=== PATIENT | female | born 1955 | race Caucasian/White ===

== ENCOUNTER 2019-02-25 15:52 | Outpatient (CLI) | payer MEDICARE | END 2019-02-25 15:53 | disposition critical access hospital (66) | LOC: EMS 15:52 | PROVIDERS: ATTEND Surgery | DX: R07.9 Chest pain, unspecified (principal) | CPT/HCPCS: A0425; A0427 ==

== ENCOUNTER 2019-02-25 16:12 | Observation (INO) | payer MEDICARE ==
[2019-02-25 16:39] LABS: BASOPHILS % (AUTO) 0.4 %; EOSINOPHILS # (AUTO) 0.2 10^3/uL (0.0-0.7); EOSINOPHILS % (AUTO) 1.9 %; HGB - HEMOGLOBIN 12.6 g/dL (12.0-16.0); LYMPHOCYTES # (AUTO) 2.4 10^3/uL (1.5-3.5); LYMPHOCYTES % (AUTO) 25.3 %; MEAN CORPUSCULAR HGB CONC 33.3 g/dL (32.0-36.0); MEAN CORPUSCULAR VOLUME 93.1 fL (81.0-99.0); MONOCYTES # (AUTO) 0.7 10^3/uL (0.0-1.0); MONOCYTES % (AUTO) 7.3 %; NEUTROPHILS % (AUTO) 64.7 %; PLT - PLATELET COUNT 261 10^3/uL (130-450); RED BLOOD COUNT 4.06 10^6/uL (4.20-5.40); RED CELL DISTRIBUTION WIDTH 13.2 % (12.0-15.0); WHITE BLOOD COUNT 9.3 x10^3/uL (4.8-10.8)
[2019-02-25 16:49] LABS: ALBUMIN/GLOBULIN RATIO 1.4 (1.0-2.2); BILIRUBIN,TOTAL 0.3 mg/dL (0.2-1.0); CALCIUM 9.5 mg/dL (8.5-10.3); CREATININE 0.7 mg/dL (0.4-1.0); TOTAL PROTEIN 6.8 g/dL (6.7-8.2)
--- NOTE | 2019-02-25 17:11 | ED Physician Documentation ---
PD HPI CHEST PAIN - Stated complaint Stated Complaint: CP - Chief complaint Chief Complaint: Cardiac - History obtained from History obtained from: Patient, EMS - History of Present Illness Timing - onset: How many hours ago (1.5) Timing - onset during: Rest Timing - duration: Hours (1.5) Timing - details: Abrupt onset Pain level max: 6 Pain level now: 0 Quality: Pressure, Sharp Location: Left chest Radiation: Left upper extremity (shoulder) Improved by: Nitro Worsened by: Inspiration, Palpation. No: Exertion, Eating, Movement, Position Associated symptoms: No: Shortness of air, Diaphoresis, Nausea, Vomiting, Feeling faint / dizzy, General Weakness, Palpitations, Cough Recently seen: Not recently seen - Additional information Additional information: Patient moved here 10 days ago from [place]. Does not have any medical care set up here yet. She states that she does not have a history of acute coronary syndrome. States that she had a normal cardiac stress test she believes in November, but says that it was on a treadmill and they "stopped it early". She does not know the results beyond that Review of Systems Constitutional: denies: Fever, Chills Respiratory: denies: Cough GI: denies: Vomiting, Diarrhea Skin: denies: Rash Musculoskeletal: denies: Neck pain, Back pain Neurologic: denies: Focal weakness, Numbness, Headache PD PAST MEDICAL HISTORY - Past Medical History Past Medical History: Yes Cardiovascular: Congestive heart failure, Other Respiratory: COPD Endocrine/Autoimmune: Type 2 diabetes Other Past Medical History: aortic stenosis - Past Surgical History Past Surgical History: Yes General: 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 /CADDIE: 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 HEENT: Tonsil/Adenoidectomy - Present Medications Home Medications: Ambulatory Orders Medication Instructions Recorded Confirmed Aspirin [Aspirin EC] 81 mg PO DAILY 02/25/19 02/25/19 Beclomethasone 40 Mcg [Qvar 40] 100 puffs INH Q6HR PRN 02/25/19 02/25/19 Bumetanide 1 mg PO BIDDIURETIC 02/25/19 02/25/19 Fluticasone Propionate 1 spray NS DAILY PRN 02/25/19 02/25/19 Gabapentin 300 mg PO TID 02/25/19 02/25/19 Ipratropium/Albuterol [Duoneb] 3 ml INH BID 02/25/19 02/25/19 Losartan Potassium 25 mg PO DAILY 02/25/19 02/25/19 Montelukast [Singulair] 10 mg PO QPM 02/25/19 02/25/19 Simvastatin 10 mg PO DAILY PM 02/25/19 02/25/19 metFORMIN [Glucophage] 500 mg PO DAILYWM 02/25/19 02/25/19 - Allergies Allergies/Adverse Reactions: Allergies Allergy/AdvReac Type Severity Reaction Status Date / Time No Known Drug Allergies Allergy Verified 02/25/19 16:19 - Social History Does the pt smoke?: No Smoking Status: Former smoker Does the pt drink ETOH?: Yes Does the pt have substance abuse?: No - Immunizations Immunizations are current?: Yes PD ED PE NORMAL - Vitals Vital signs reviewed: Yes - General General: Alert and oriented X 3, No acute distress - HEENT HEENT: Moist mucous membranes - Neck Neck: Supple, no meningeal sign - Cardiac Cardiac: RRR, Strong equal pulses - Respiratory Respiratory: No respiratory distress, Clear bilaterally - Abdomen Abdomen: Soft, Non tender, Non distended - Derm Derm: Warm and dry, No rash - Extremities Extremities: No edema, No calf tenderness / cord - Neuro Neuro: Alert and oriented X 3 Results - Vitals Vitals: Vital Signs - 24 hr 02/25/19 02/25/19 02/25/19 16:12 16:32 16:58 Temperature 36.6 C Heart Rate 77 66 70 Respiratory 18 14 16 Rate Blood Pressure 119/67 115/63 115/65 O2 Saturation 97 97 96 Oxygen O2 Source Room air - EKG (time done) 1616 Rate: Rate (enter#) (72) Rhythm: NSR [place]: Normal Intervals: Normal [place] QRS: Normal Ischemia: Normal ST segments - Labs Labs: Laboratory Tests 02/25/19 02/25/19 02/25/19 16:30 16:30 16:30 WBC 9.3 RBC 4.06 L Hgb 12.6 Hct 37.8 MCV 93.1 MCH 31.0 MCHC 33.3 RDW 13.2 Plt Count 261 MPV 10.0 Neut # (Auto) 6.0 Lymph # (Auto) 2.4 [place] # (Auto) 0.7 Eos # (Auto) 0.2 Baso # (Auto) 0.0 Absolute Nucleated RBC 0.00 Nucleated RBC % 0.0 D-Dimer Sodium 141 Potassium 3.2 L Chloride 106 Carbon Dioxide 25 Anion Gap 10.0 BUN 12 Creatinine 0.7 Estimated GFR (MDRD) 84 L Glucose 94 Calcium 9.5 Total Bilirubin 0.3 AST 26 ALT 36 Alkaline Phosphatase 50 Troponin I < 0.04 Total Protein 6.8 Albumin 4.0 Globulin 2.8 Albumin/Globulin Ratio 1.4 Lipase 29 02/25/19 16:30 WBC RBC Hgb Hct MCV MCH MCHC RDW Plt Count MPV Neut # (Auto) Lymph # (Auto) [place] # (Auto) Eos # (Auto) Baso # (Auto) Absolute Nucleated RBC Nucleated RBC % D-Dimer < 200.0 L Sodium Potassium Chloride Carbon Dioxide Anion Gap BUN Creatinine Estimated GFR (MDRD) Glucose Calcium Total Bilirubin AST ALT Alkaline Phosphatase Troponin I Total Protein Albumin Globulin Albumin/Globulin Ratio Lipase - Rads (name of study) cxr Radiology: Prelim report reviewed, EMP read contemporaneously, See rad report (Negative chest. ) PD MEDICAL DECISION MAKING - ED course Complexity details: reviewed results, re-evaluated patient, considered differential (No ST elevation [place], no aortic dissection, no PE, no tension pneumothorax, no aortic aneurysm), d/w patient, d/w compensation consultant ED course: 63-year-old female with chest pain. Does have a cardiac history, unclear if she has acute coronary syndrome history or not. Negative initial troponin. No acute findings on initial EKG. Discussed the case with Dr. Pierre, hospitalist who accepts for observation and rule out. Patient took aspirin prior to arrival. This document was made in part using voice recognition software. While efforts are made to proofread this document, sound alike and grammatical errors may occur. Departure - Departure Disposition: ED Place in Observation Clinical Impression: Chest pain Qualifiers: Chest pain type: unspecified Qualified Code(s): R07.9 - Chest pain, unspecified Condition: Stable Discharge Date/Time: 02/25/19 18:38
--- NOTE | 2019-02-25 17:14 | XRAY Report ---
Reason: CP, hx of COPD Procedure Date: 02/25/2019 Accession Number: [id number] / [id number] Procedure: XR - Chest 2 View X-Ray CPT Code: 07282 FULL RESULT: EXAM: CHEST RADIOGRAPHY EXAM DATE: 02/25/2019 04:59 PM. CLINICAL HISTORY: CP, hx of COPD. COMPARISON: None. TECHNIQUE: 2 views. FINDINGS: Lungs/Pleura: No focal opacities evident. No pleural effusion. No pneumothorax. Normal volumes. Mediastinum: Heart and mediastinal contours are unremarkable. Other: None. IMPRESSION: Negative chest. RADIA
[2019-02-25] MEDS ORDERED: SODIUM CHLORIDE FLUSH 0.9% 10 ML SYRINGE IVP PRN (18:07)
--- NOTE | 2019-02-25 18:16 | HISTORY & PHYSICAL EXAMINATION ---
Chief Complaint - Chief Complaint Chief Complaint: chest pain Chest Pain Admission HPI - Admitted From Admitted from: ED - History Obtained From Records Reviewed: RN notes reviewed, Old records reviewed History obtained from: Patient, Family Exam limitations: No limitations - History of Present Illness Severity at the worst: reports: Moderate Pain Quality: reports: Sharp, Dull, Aching Context-Pain started w/: reports: Exertion, Movement, Position Timing: reports: Abrupt onset, Constant Worsened by: reports: Exertion, Movement Associated symptoms: reports: Shortness of air, Diaphoresis, Nausea, Feeling faint / dizzy, General Weakness HPI Comment/Other: Shivani Tovar is a 63-year old female with a past medical history of hypertension, hyperlipidemia, aortic stenosis, CAD, diabetes mellitus type 2, COPD, tobacco dependence, in remission, alcoholism in remission, chronic angina, and medical noncompliance. Susanna just moved [place] [facility] [place], [place], and claims that she used every last dollar to her name to move. Her sister, Megan has been paying for a hotel room near [place] since early February. Susanna states that her pain started abruptly about 2 hours prior to calling EMS. She states that the pain is in her left-mid sternum and radiates up to her shoulder and is associated with diaphoresis, nausea, anxiety, shortness of breath and dizziness. The only thing that gave her relief was after getting a nitroglycerin tab in the ambulance, which has completely resolved the pain. She denies radiating pain to her jaw, arm, back, any other area of her chest, abdominal pain, vomiting, loss of bowel function, weakness, numbness or tingling, or confusion. On exam, she has tenderness to her left sub-sternal boarder that went away, and otherwise her pain was resolved. Vital signs were not significant showing a blood pressure of 119/67, heart rate of 77, temp 36.6 C, respirations 18 and on room air at 97%. Labs showed no WBC count, normal CBC, potassium of 3.2, GFR 84, negative troponin of 0.04, and no other abnormalities. EKG showed no ST elevation, sinus rhythm. She will be admitted to observation for further testing, medical management, a possible stress test depending on echo results, and serial troponins. 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 : positive: Incontinence HEENT: positive: Chronic vision loss, Chronic sinusitis Psych: positive: Depression, Anxiety, Bipolar disorder Musculoskeletal: positive: Osteoarthritis Derm: positive: None MRSA Hx?: No Other Past Medical History: aortic stenosis - Past Surgical History General: positive: 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: 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 HEENT: positive: Tonsil/Adenoidectomy Social & Family Hx - Living Situation Living Arrangement: Other (staying in a hotel) Living Situation: Alone - Social History Does the pt smoke?: No Smoking Status: Former smoker Does the pt drink ETOH?: Yes ETOH Use: Beer Does the pt have substance abuse?: No - POLST Patient has POLST: No POLST Status: Full Code - Family History Family History: Mother: , Father: Family History Comment/Other: Mother had a brain anerysm Father CAD Sister- TIA, CAD Meds/Allgy - Home Medications Home Medications: Ambulatory Orders Medication Instructions Recorded Confirmed Aspirin [Aspirin EC] 81 mg PO DAILY 02/25/19 02/26/19 Beclomethasone 40 Mcg [Qvar 40] 1 puffs INH BID 02/25/19 02/26/19 Fluticasone Propionate 1 spray NS DAILY PRN 02/25/19 02/26/19 Gabapentin 300 mg PO TID 02/25/19 02/26/19 Ipratropium/Albuterol [Duoneb] 3 ml INH BID 02/25/19 02/26/19 Montelukast [Singulair] 10 mg PO QPM 02/25/19 02/26/19 metFORMIN [Glucophage] 500 mg PO BID 02/25/19 02/26/19 Albuterol Sulf [Ventolin Hfa 2 puffs PO Q4H PRN 02/26/19 02/26/19 Inhaler] Bumetanide 1 mg PO DAILY #30 02/26/19 02/26/19 Isosorbide Mononitrate ER [Imdur] 30 mg PO DAILY #30 tablet 02/26/19 Nitroglycerin [Nitrostat] 0.4 mg SL Q15M PRN #30 tablet 02/26/19 Simvastatin 10 mg PO DAILY #30 tablet 02/26/19 - Allergies Allergies/Adverse Reactions: Allergies Allergy/AdvReac Type Severity Reaction Status Date / Time No Known Drug Allergies Allergy Verified 02/25/19 16:19 Review of Systems - Constitutional Constitutional: reports: Diaphoresis - Eyes Eyes: reports: Vision loss - Ears, Nose & Throat Ears, Nose & Throat: reports: Postnasal drainage, Dental decay - Cardiovascular Cariovascular: reports: Chest pain, Edema, Lightheadedness, Decr. exercise tolerance - Respiratory Respiratory: reports: Cough, SOB with exertion - Gastrointestinal Gastrointestinal: reports: Abdominal distention, Nausea, Reflux/heartburn, Poor appetite - Genitourinary Genitourinary: reports: Dysuria, Incontinence, Nocturia - Musculoskeletal Musculoskeletal: reports: Joint pain - Integumentary Integumentary: reports: Dryness, Other (tanned/bronze skin tone) - Neurological Neurological: reports: General weakness, Dizziness, Pre-existing deficit - Psychiatric Psychiatric: reports: Depression, Anxiety - All Other Systems All Other Systems: reports: Reviewed and negative 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, 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 Exam - Vital Signs Reviewed Vital Signs: Yes Vital Signs: Vital Signs x48h Temp Pulse Resp BP Pulse Ox 02/25/19 16:58 70 16 115/65 96 02/25/19 16:32 66 14 115/63 97 02/25/19 16:12 36.6 C 77 18 119/67 97 - Physical Exam General Appearance: positive: Alert, Moderate distress, Anxious Eyes Bilateral: positive: PERRL ENT: positive: Pharynx nml, No signs of dehydration Neck: positive: Thyroid nml, No JVD Respiratory: positive: Chest non-tender, No respiratory distress, Breath sounds nml Cardiovascular: positive: Regular rate & rhythm, No gallop, Systolic murmur, Decreased pulse(s) Peripheral Pulses: positive: 1+ Abdomen: positive: Non-tender, Nml bowel sounds Back: positive: Nml inspection Skin: positive: No rash, Warm, Dry Extremities: positive: Non-tender, Full ROM, Nml appearance, Pedal edema (trace, BLEs) Neurologic/Psychiatric: positive: Oriented x3, CN's nml (2-12), Motor nml, Sensation nml, Weakness, Depressed mood/affect Reflexes: Bicep (R): 3+, Bicep (L): 3+ Results - Lab Results Lab results reviewed: Yes Fish Bones: 02/26/19 05:18 02/26/19 05:18 Other Lab Results: Lab Results x24hrs 02/25/19 02/25/19 02/25/19 Range/Units 16:30 16:30 16:30 WBC (4.8-10.8) x10^3/uL RBC (4.20-5.40) 10^6/uL Hgb (12.0-16.0) g/dL Hct (37.0-47.0) % MCV (81.0-99.0) fL MCH (27.0-31.0) pg MCHC (32.0-36.0) g/dL RDW (12.0-15.0) % Plt Count (130-450) 10^3/uL MPV (7.9-10.8) fL Neut # (Auto) (1.5-6.6) 10^3/uL Lymph # (Auto) (1.5-3.5) 10^3/uL [place] # (Auto) (0.0-1.0) 10^3/uL Eos # (Auto) (0.0-0.7) 10^3/uL Baso # (Auto) (0.0-0.1) 10^3/uL Absolute Nucleated RBC x10^3/uL Nucleated RBC % /100WBC D-Dimer < 200.0 L (200.0-255.0) ng/mL Sodium 141 (135-145) mmol/L Potassium 3.2 L (3.5-5.0) mmol/L Chloride 106 (101-111) mmol/L Carbon Dioxide 25 (21-32) mmol/L Anion Gap 10.0 (6-13) BUN 12 (6-20) mg/dL Creatinine 0.7 (0.4-1.0) mg/dL Estimated GFR (MDRD) 84 L (>89) Glucose 94 (70-100) mg/dL Calcium 9.5 (8.5-10.3) mg/dL Total Bilirubin 0.3 (0.2-1.0) mg/dL AST 26 (10-42) IU/L ALT 36 (10-60) IU/L Alkaline Phosphatase 50 (42-121) IU/L Troponin I < 0.04 (<0.49) ng/mL Total Protein 6.8 (6.7-8.2) g/dL Albumin 4.0 (3.2-5.5) g/dL Globulin 2.8 (2.1-4.2) g/dL Albumin/Globulin Ratio 1.4 (1.0-2.2) Lipase 29 (22-51) U/L // Range/Units 16:30 WBC 9.3 (4.8-10.8) x10^3/uL RBC 4.06 L (4.20-5.40) 10^6/uL Hgb 12.6 (12.0-16.0) g/dL Hct 37.8 (37.0-47.0) % MCV 93.1 (81.0-99.0) fL MCH 31.0 (27.0-31.0) pg MCHC 33.3 (32.0-36.0) g/dL RDW 13.2 (12.0-15.0) % Plt Count 261 (130-450) 10^3/uL MPV 10.0 (7.9-10.8) fL Neut # (Auto) 6.0 (1.5-6.6) 10^3/uL Lymph # (Auto) 2.4 (1.5-3.5) 10^3/uL [place] # (Auto) 0.7 (0.0-1.0) 10^3/uL Eos # (Auto) 0.2 (0.0-0.7) 10^3/uL Baso # (Auto) 0.0 (0.0-0.1) 10^3/uL Absolute Nucleated RBC 0.00 x10^3/uL Nucleated RBC % 0.0 /100WBC D-Dimer (200.0-255.0) ng/mL Sodium (135-145) mmol/L Potassium (3.5-5.0) mmol/L Chloride (101-111) mmol/L Carbon Dioxide (21-32) mmol/L Anion Gap (6-13) BUN (6-20) mg/dL Creatinine (0.4-1.0) mg/dL Estimated GFR (MDRD) (>89) Glucose (70-100) mg/dL Calcium (8.5-10.3) mg/dL Total Bilirubin (0.2-1.0) mg/dL AST (10-42) IU/L ALT (10-60) IU/L Alkaline Phosphatase (42-121) IU/L Troponin I (<0.49) ng/mL Total Protein (6.7-8.2) g/dL Albumin (3.2-5.5) g/dL Globulin (2.1-4.2) g/dL Albumin/Globulin Ratio (1.0-2.2) Lipase (22-51) U/L CP/CHF Plan - Echo Plan to order an echo?: Yes - Plan Patient Problems: All Active Problems Chest pain (Acute) Dizziness (Acute) Poor social situation (Acute) Alcoholism in remission (Chronic) Aortic stenosis (Chronic) CAD (coronary artery disease) (Chronic) COPD (chronic obstructive pulmonary disease) (Chronic) Diabetes mellitus type 2 in obese (Chronic) Essential hypertension (Chronic) Hyperlipidemia (Chronic) Medical non-compliance (Chronic) Peripheral neuropathy (Chronic) Tobacco use disorder, severe, in sustained remission, dependence (Chronic) Pulmonary nodules (Chronic) Plan: Admit to observation Serial troponins, routine labs, TSH Await Echo results to evaluate for aortic stenosis and the severity Contact social work for help with living situation, community resources Adjust medications Start Imdur to prevent chest pain Monitor on telemetry Frequent nursing care Hold Metformin, hold diuretic Carb controlled diet, SSI, blood sugar checks, Lantus nightly of 10 units Core Measures - Anticipated LOS I expect patient to be DC'd or transferred within 96 hours.: Yes - DVT/VTE - Prophylaxis VTE/DVT Device ordered at admit?: Yes VTE/DVT Prophylaxis med ordered at admit?: Yes - Stroke - Rehab Assessment Rehab services assessment to be ordered?: No Not Ordered - Medical Reason: Contraindicated - AMI - Statin at Admit Aspirin Prescribed on Admit: Yes
[2019-02-25] MEDS ORDERED: NITROGLYCERIN SL 0.4 MG TABLET SL PRN (18:27)
[2019-02-25 19:05] LABS: MUDS CUTOFF CONCENTRATIONS CUTOFF CONC BELOW:
[2019-02-25] MEDS ORDERED: METOPROLOL SUCCINATE 25 MG TABLET PO SCH (19:22)
[2019-02-25 19:30] LABS: AMPHETAMINE SCREEN,URINE NEGATIVE (NEGATIVE); BENZODIAZEPINES SCREEN, URINE NEGATIVE (NEGATIVE); COCAINE SCREEN URINE NEGATIVE (NEGATIVE); METHADONE SCREEN, URINE NEGATIVE (NEGATIVE); METHAMPHETAMINES SCREEN, URINE NEGATIVE (NEGATIVE); OPIATE SCREEN, URINE NEGATIVE (NEGATIVE); OXYCODONE SCREEN, URINE NEGATIVE (NEGATIVE); PROPOXYPHENE SCREEN, URINE NEGATIVE (NEGATIVE); TRICYCLIC ANTIDEPRESSANT,URINE NEGATIVE (NEGATIVE)
[2019-02-25] MEDS ORDERED: IPRATROPIUM/ALBUTEROL 3 ML NEB INH SCH (20:00)
[2019-02-25] MEDS: INSULIN ASPART 300 UNIT/3 ML PEN SUBQ SCH (20:11)
[2019-02-25] MEDS ORDERED: INSULIN GLARGINE 300 UNIT/3 ML PEN SUBQ SCH (21:00)
[2019-02-25] MEDS ORDERED: ATORVASTATIN 40 MG TABLET PO SCH (21:00)
[2019-02-25] MEDS ORDERED: MONTELUKAST 10 MG TABLET PO SCH (21:00)
[2019-02-25] MEDS: GABAPENTIN 300 MG CAPSULE PO SCH (21:16)
[2019-02-25] MEDS: ASPIRIN 325 MG TABLET PO SCH (21:16)
[2019-02-25] MEDS: ENOXAPARIN 100 MG/ML SYRINGE SUBQ SCH (21:16)
[2019-02-25] MEDS: IPRATROPIUM/ALBUTEROL 3 ML NEB INH SCH (22:32)
[2019-02-26] MEDS: SODIUM CHLORIDE FLUSH 0.9% 10 ML SYRINGE IVP SCH ×2 (00:09→08:21)
[2019-02-26] MEDS: ISOSORBIDE MONONITRATE ER 30 MG TABLET PO SCH ×2 (01:05→02:42)
[2019-02-26] MEDS ORDERED: IPRATROPIUM/ALBUTEROL 3 ML NEB INH PRN (04:19)
[2019-02-26 05:28] LABS: BASOPHILS % (AUTO) 0.5 %; EOSINOPHILS # (AUTO) 0.3 10^3/uL (0.0-0.7); EOSINOPHILS % (AUTO) 3.9 %; HGB - HEMOGLOBIN 12.2 g/dL (12.0-16.0); LYMPHOCYTES # (AUTO) 3.2 10^3/uL (1.5-3.5); MEAN CORPUSCULAR HEMOGLOBIN 30.2 pg (27.0-31.0); MEAN CORPUSCULAR VOLUME 94.3 fL (81.0-99.0); MEAN PLATELET VOLUME 10.2 fL (7.9-10.8); MONOCYTES # (AUTO) 0.5 10^3/uL (0.0-1.0); MONOCYTES % (AUTO) 6.3 %; NEUTROPHILS # (AUTO) 3.6 10^3/uL (1.5-6.6); PLT - PLATELET COUNT 238 10^3/uL (130-450); RED BLOOD COUNT 4.04 10^6/uL (4.20-5.40); RED CELL DISTRIBUTION WIDTH 13.4 % (12.0-15.0); WHITE BLOOD COUNT 7.6 x10^3/uL (4.8-10.8)
[2019-02-26 05:41] LABS: HB2 TOTAL 12.9 g/dL; HEMOGLOBIN A1C 0.54 g/dL
[2019-02-26 05:42] LABS: ALBUMIN 3.5 g/dL (3.2-5.5); ALBUMIN/GLOBULIN RATIO 1.3 (1.0-2.2); BILIRUBIN,TOTAL 0.4 mg/dL (0.2-1.0); CREATININE 0.7 mg/dL (0.4-1.0); MAGNESIUM 2.3 mg/dL (1.7-2.8); TOTAL PROTEIN 6.1 g/dL (6.7-8.2)
[2019-02-26 05:48] LABS: TROPONIN I < 0.04 ng/mL (<0.49)
[2019-02-26 05:50] LABS: CREATINE KINASE MB 3.9 ng/mL (0.6-6.3)
[2019-02-26] MEDS: GABAPENTIN 300 MG CAPSULE PO SCH (05:52)
[2019-02-26 08:03] VITALS: BP 102/59
[2019-02-26] MEDS: ASPIRIN 325 MG TABLET PO SCH (08:17)
[2019-02-26] MEDS: ENOXAPARIN 100 MG/ML SYRINGE SUBQ SCH (08:17)
[2019-02-26] MEDS: INSULIN ASPART 300 UNIT/3 ML PEN SUBQ SCH (08:20)
[2019-02-26] MEDS ORDERED: ISOSORBIDE MONONITRATE ER 30 MG TABLET PO SCH ×2 (09:00→10:00)
[2019-02-26] MEDS ORDERED: POLYETHYLENE GLYCOL 3350 17 GM PACKET PO SCH (09:00)
[2019-02-26] MEDS: IPRATROPIUM/ALBUTEROL 3 ML NEB INH SCH (09:40)
--- NOTE | 2019-02-26 09:53 | Discharge Plan ---
Discharge Plan Problem Reviewed?: Yes Disposition: Home, Self Care Condition: Good Prescriptions: Isosorbide Mononitrate ER [Imdur] 30 mg PO DAILY #30 tablet Nitroglycerin [Nitrostat] 0.4 mg SL Q15M PRN #30 tablet PRN Reason: Chest Pain Simvastatin 10 mg PO DAILY #30 tablet Diet: Cardiac Activity Restrictions: Activity as Tolerated Shower Restrictions: No Instruction Topics: Atorvastatin tablets, Isosorbide Mononitrate extended- release tablets, Nitroglycerin Fast Acting Health Concerns: Chest pain Known aortic stenosis that is now moderate to severe (preliminary result) Plan of Treatment: Start Imdur (opens coronary vessels that supply blood to your heart) Plan for an upcoming cardiac catheterization that will be ordered by your primary care provider Care Goals: Avoid hospital stays or ED visits Manage chest pain Get follow up care Assessment: You were admitted for chest pain, that resolved, except for some soreness noted in the ribs All cardiac enzyme testing was negative You are not a candidate for a stress test since your aortic valve is rated moderate to severe We recommend that you get a cardiac cath in the near future To allow for your new medication, please stop the Losartan Please take some time to rest, and avoid lifting, raking, house work or climbing stairs until your cardiac evaluation Return to the ED if your chest pain comes back No Smoking: If you smoke, Please STOP! Call for help.
--- NOTE | 2019-02-26 10:02 | DISCHARGE SUMMARY ---
Discharge Summary Admit Date: 02/25/19 Discharge Date: 02/26/19 Discharging Provider: RENAN Nazario [facility] Code Status: Attempt Resuscitation Condition at Discharge: Good Discharge Disposition: 01 Home, Self Care - DIAGNOSES Admission Diagnoses: Chest pain Dizziness Hyperlipidemia Peripheral neuropathy Alcoholism in remission Medical non-compliance Essential hypertension Tobacco use disorder, severe, in sustained remission Moderate COPD (chronic obstructive pulmonary disease) Diabetes mellitus type 2 in obese CAD (coronary artery disease) Aortic stenosis Pulmonary nodules Poor social situation Discharge Diagnoses with Status of Each Condition: Chest pain- improved, continue Imdur, use nitroglycerin as needed Dizziness- resolved Hyperlipidemia- chronic, stable Peripheral neuropathy- chronic, stable Alcoholism in remission- chronic, stable Medical non-compliance- chronic, stable Essential hypertension- chronic, stable Tobacco use disorder, severe, in sustained remission- chronic, stable Moderate COPD (chronic obstructive pulmonary disease)- chronic, stable Diabetes mellitus type 2 in obese- chronic, stable CAD (coronary artery disease)- chronic, stable Aortic stenosis- chronic, stable, noted as moderate to severe- preliminary results Pulmonary nodules- chronic, stable Poor social situation- chronic, stable - HPI History of Present Illness: Shivani Tovar is a 63-year old female with a past medical history of hyperten karen, hyperlipidemia, aortic stenosis, CAD, diabetes mellitus type 2, COPD, tobacco dependence, in remission, alcoholism in remission, chronic angina, and medical noncompliance. Sus[place] [facility] [place] claims that she used every last dollar to her name to move. Her sister, Megan has been paying for a hotel room near [place] since early February. Susanna states that her pain started abruptly about 2 hours prior to calling EMS. She states that the pain is in her left-mid sternum and radiates up to her shoulder and is associated with diaphoresis, nausea, anxiety, shortness of breath and dizziness. The only thing that gave her relief was after getting a nitroglycerin tab in the ambulance, which has completely resolved the pain. She denies radiating pain to her jaw, arm, back, any other area of her chest, abdominal pain, vomiting, loss of bowel function, weakness, numbness or tingling, or confusion. On exam, she has tenderness to her left sub-sternal boarder that went away, and otherwise her pain was resolved. Vital signs were not significant showing a blood pressure of 119/67, heart rate of 77, temp 36.6 C, respirations 18 and on room air at 97%. Labs showed no WBC count, normal CBC, potassium of 3.2, GFR 84, negative troponin of 0.04, and no other abnormalities. EKG showed no ST elevation, sinus rhythm. She will be admitted to observation for further testing, medical management, a possible stress test depending on echo results, and serial troponins. - HOSPITAL COURSE Hospital Course: The patient was admitted for chest pain, that resolved, except for some soreness noted in the ribs on exam with palpation. All cardiac enzyme testing was negative. The patient was not a candidate for a stress test since an updated echocardiogram showed moderate to severe aortic stenosis (preliminary results). We recommended that she promptly follow up with her PCP to obtain a cardiac cath via cardiology JUAN. Her Losartan was held to allow for Imdur on blood pressure. We also recommended that she only take Bumex daily to preserve kidney function. She was advised to rest until she follows up with a medical provider to prevent recurrence of the chest pain by; taking some time to rest, avoid lift ing, raking, house work or climbing stairs until her cardiac evaluation. She was instructed to return to the ED if her chest pain comes back. Social work provided community resources and provided information on her 2 new prescriptions of $2.50 each for the cost of the Imdur and Nitro tabs. She was medically stable and discharged back to her hotel room. - ALLERGIES Allergies/Adverse Reactions: Allergies Allergy/AdvReac Type Severity Reaction Status Date / Time levofloxacin [From Levaquin] Allergy Hives Verified 02/26/19 13:27 - MEDICATIONS Home Medications: Ambulatory Orders Medication Instructions Recorded Confirmed Aspirin [Aspirin EC] 81 mg PO DAILY 02/25/19 02/26/19 Beclomethasone 40 Mcg [Qvar 40] 1 puffs INH BID 02/25/19 02/26/19 Fluticasone Propionate 1 spray NS DAILY PRN 02/25/19 02/26/19 Gabapentin 300 mg PO TID 02/25/19 02/26/19 Ipratropium/Albuterol [Duoneb] 3 ml INH BID 02/25/19 02/26/19 Montelukast [Singulair] 10 mg PO QPM 02/25/19 02/26/19 metFORMIN [Glucophage] 500 mg PO BID 02/25/19 02/26/19 Albuterol Sulf [Ventolin Hfa 2 puffs PO Q4H PRN 02/26/19 02/26/19 Inhaler] Bumetanide 1 mg PO DAILY #30 02/26/19 02/26/19 Isosorbide Mononitrate ER [Imdur] 30 mg PO DAILY #30 tablet 02/26/19 Nitroglycerin [Nitrostat] 0.4 mg SL Q15M PRN #30 tablet 02/26/19 Simvastatin 10 mg PO DAILY #30 tablet 02/26/19 - PHYSICAL EXAM AT DISCHARGE General Appearance: positive: Alert, Mild distress, Anxious Eyes Bilateral: positive: PERRL ENT: positive: Pharynx nml, No signs of dehydration Neck: positive: Thyroid nml, No JVD, Trachea midline Cardiovascular: positive: Regular rate & rhythm, Irregularly irregular, Systolic murmur, Decreased pulse(s) Peripheral Pulses: positive: 1+ Abdomen: positive: Non-tender, Nml bowel sounds Back: positive: Nml inspection Skin: positive: Color nml, No rash, Warm, Dry Extremities: positive: Non-tender, Full ROM, Pedal edema (chronic BLE edema) Neurologic/Psychiatric: positive: Oriented x3, CN's nml (2-12), Motor nml, Sensation nml, Sensory loss, Depressed mood/affect Reflexes: Bicep (R): 3+, Bicep (L): 3+ - LABS Result Diagrams: 02/26/19 05:18 02/26/19 05:18 - FOLLOW UP Follow Up: Primary care JUAN, cardiology consult, no work until follow up. - TIME SPENT Time Spent in Discharge (Minutes): 55
[2019-02-26] MEDS ORDERED: BUMETANIDE 1 MG TABLET PO SCH (11:02)
== END 2019-02-26 13:15 | disposition home or self-care (01) ==
LOC: ED 16:12 → MS2 18:07
PROVIDERS: ADMIT Nurse Practitioner; ATTEND Nurse Practitioner
DX: R07.2 Precordial pain (principal); R42 Dizziness and giddiness; I25.119 Atherosclerotic heart disease of native coronary artery with unspecified angina pectoris; I35.0 Nonrheumatic aortic (valve) stenosis; E11.42 Type 2 diabetes mellitus with diabetic polyneuropathy; I11.0 Hypertensive heart disease with heart failure; I50.9 Heart failure, unspecified; J43.9 Emphysema, unspecified; E78.5 Hyperlipidemia, unspecified; K21.9 Gastro-esophageal reflux disease without esophagitis; E66.9 Obesity, unspecified; R91.8 Other nonspecific abnormal finding of lung field; F31.9 Bipolar disorder, unspecified; F41.9 Anxiety disorder, unspecified; F10.21 Alcohol dependence, in remission; F17.201 Nicotine dependence, unspecified, in remission; Z79.82 Long term (current) use of aspirin; Z79.51 Long term (current) use of inhaled steroids; Z79.84 Long term (current) use of oral hypoglycemic drugs; Z79.899 Other long term (current) drug therapy; Z68.33 Body mass index [BMI] 33.0-33.9, adult; Z91.19 Patient's noncompliance with other medical treatment and regimen; Z60.8 Other problems related to social environment
CPT/HCPCS: 36415; 71046; 80053; 82550; 82553; 82977; 83036; 83605; 83690; 83735; 84484; 85025; 85379; 93005; 93306; 94640; 96372; 99284; 99285; A9270; G0378; J1650; J1815; 80306

== ENCOUNTER 2019-03-14 15:01 | Emergency (ER) | payer MEDICARE, MEDICAID ==
[2019-03-14 15:09] VITALS: BP 150/81
[2019-03-14] MEDS ORDERED: IPRATROPIUM/ALBUTEROL 3 ML NEB INH STA (15:15)
[2019-03-14] MEDS ORDERED: predniSONE 20 MG TABLET PO STA (15:29)
--- NOTE | 2019-03-14 15:33 | ED Physician Documentation ---
PD HPI DYSPNEA - Stated complaint Stated Complaint: SOA - Chief complaint Chief Complaint: Resp - History obtained from History obtained from: Patient - History of Present Illness Timing - onset: Today Timing - onset during: Rest Timing - duration: Days (1) Timing - details: Gradual onset Pain level now: 0 Inciting event(s): Out of meds (out of her inhaler and nebulizer medications) Improved by: Rest Worsened by: Exertion Associated symptoms: Cough, Wheezing, Bilateral edema. No: Fever, Hemoptysis, Chest pain / discomfort, Palpitations, Diaphoresis Similar symptoms before: Diagnosis (COPD) Recently seen: Other (admitted recently for chest pain and COPD.) Review of Systems Ten Systems: 10 systems reviewed and negative Constitutional: denies: Fever, Chills GI: denies: Vomiting, Diarrhea Skin: denies: Rash Musculoskeletal: denies: Neck pain, Back pain Neurologic: denies: Headache PD PAST MEDICAL HISTORY - Past Medical History Cardiovascular: Congestive heart failure, Hypertension, High cholesterol, Coronary artery disease, Angina, Murmur, Valve disorder (known aortic stenosis) Respiratory: COPD, Emphysema, Shortness of breath, Other (lung nodules) Neuro: Headaches, Peripheral neuropathy Endocrine/Autoimmune: Type 2 diabetes (since 2013) GI: GERD 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 : Incontinence HEENT: Chronic vision loss, Chronic sinusitis Psych: Depression, Anxiety, Bipolar disorder Musculoskeletal: Osteoarthritis Derm: None - Past Surgical History Past Surgical History: Yes General: 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 /FLOTATION TENDER HELPER: 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 HEENT: Tonsil/Adenoidectomy - Present Medications Home Medications: Ambulatory Orders Medication Instructions Recorded Confirmed Aspirin [Aspirin EC] 81 mg PO DAILY 02/25/19 02/26/19 Beclomethasone 40 Mcg [Qvar 40] 1 puffs INH BID 02/25/19 02/26/19 Fluticasone Propionate 1 spray NS DAILY PRN 02/25/19 02/26/19 Gabapentin 300 mg PO TID 02/25/19 02/26/19 Ipratropium/Albuterol [Duoneb] 3 ml INH BID 02/25/19 02/26/19 Montelukast [Singulair] 10 mg PO QPM 02/25/19 02/26/19 metFORMIN [Glucophage] 500 mg PO BID 02/25/19 02/26/19 Albuterol Sulf [Ventolin Hfa 2 puffs PO Q4H PRN 02/26/19 02/26/19 Inhaler] Bumetanide 1 mg PO DAILY #30 02/26/19 02/26/19 Isosorbide Mononitrate ER [Imdur] 30 mg PO DAILY #30 tablet 02/26/19 Simvastatin 10 mg PO DAILY #30 tablet 02/26/19 Nitroglycerin [Nitrostat] 0.4 mg SL Q5M PRN #30 tab.subl 02/27/19 Albuterol 2.5 mg INH Q4H PRN #30 neb 03/14/19 Albuterol Sulf [Ventolin Hfa 1 - 2 puffs INH Q4HR PRN #1 inhaler 03/14/19 Inhaler] Ipratropium/Albuterol [Duoneb] 3 ml INH Q6H #30 neb 03/14/19 predniSONE [Deltasone] 10 mg PO [id number] #42 tab 03/14/19 - Allergies Allergies/Adverse Reactions: Allergies Allergy/AdvReac Type Severity Reaction Status Date / Time levofloxacin [From Levaquin] Allergy Hives Verified 02/26/19 13:27 - Social History Does the pt smoke?: No Smoking Status: Former smoker Does the pt drink ETOH?: Yes Does the pt have substance abuse?: No - Immunizations Immunizations are current?: Yes - POLST Patient has POLST: No POLST Status: Full Code PD ED PE NORMAL - Vitals Vital signs reviewed: Yes - General General: Alert and oriented X 3, Other (pursed lip breathing) - HEENT HEENT: PERRL - Neck Neck: Supple, no meningeal sign - Cardiac Cardiac: RRR - Respiratory Respiratory: No respiratory distress, Other (very diminished breath sounds bilaterally. ) - Abdomen Abdomen: Soft, Non tender, Non distended - Derm Derm: Warm and dry, No rash - Extremities Extremities: No edema - Neuro Neuro: Alert and oriented X 3 - Psych Psych: Normal mood, Normal affect Results - Vitals Vitals: Vital Signs - 24 hr 03/14/19 03/14/19 15:04 15:39 Temperature 36.8 C Heart Rate 90 77 Respiratory 18 12 Rate Blood Pressure 150/81 H O2 Saturation 95 Oxygen O2 Source Room air PD MEDICAL DECISION MAKING - ED course Complexity details: reviewed old records, re-evaluated patient, considered differential, d/w patient ED course: 63-year-old female with COPD flare. Given steroids, albuterol. Feels better. Will refill her prescriptions at home as she is out of her medications. Also placed on prednisone. She is well-appearing, nontoxic. No hypoxia. No evidence of pneumonia. Patient counseled regarding signs and symptoms for which I believe and urgent re-evaluation would be necessary. Patient with good understanding of and agreement to plan and is comfortable going home at this time This document was made in part using voice recognition software. While efforts are made to proofread this document, sound alike and grammatical errors may occur. Departure - Departure Disposition: Home, Self Care Clinical Impression: Acute exacerbation of chronic obstructive pulmonary disease (COPD) Condition: Good Instructions: ED COPD Flare Follow-Up: TAWANDA BORRERO MD [Primary Care Provider] - Within 1 week Prescriptions: Albuterol Sulf [Ventolin Hfa Inhaler] 1 - 2 puffs INH Q4HR PRN #1 inhaler PRN Reason: Shortness Of Air/Wheezing Albuterol 2.5 mg INH Q4H PRN #30 neb PRN Reason: Wheezing Ipratropium/Albuterol [Duoneb] 3 ml INH Q6H #30 neb predniSONE [Deltasone] 10 mg PO [id number] #42 tab Comments: Return if you worsen. Follow-up with your doctor for further care.
[2019-03-14] MEDS ORDERED: ALBUTEROL NEB 2.5 MG/3 ML INH STA (15:52)
== END 2019-03-14 16:59 | disposition home or self-care (01) ==
LOC: ED 15:01
DX: J43.9 Emphysema, unspecified (principal); I11.0 Hypertensive heart disease with heart failure; I50.9 Heart failure, unspecified; I35.0 Nonrheumatic aortic (valve) stenosis; E11.42 Type 2 diabetes mellitus with diabetic polyneuropathy; Z79.84 Long term (current) use of oral hypoglycemic drugs; Z79.82 Long term (current) use of aspirin; Z87.891 Personal history of nicotine dependence
CPT/HCPCS: 94640; 99284; J7512

== ENCOUNTER 2019-03-28 11:17 | Emergency (ER) | payer MEDICARE, MEDICAID ==
[2019-03-28] MEDS ORDERED: IPRATROPIUM/ALBUTEROL 3 ML NEB INH STA (11:27)
[2019-03-28 11:41] VITALS: BP 133/75
--- NOTE | 2019-03-28 12:13 | ED Physician Documentation ---
History of Present Illness - Stated complaint Stated Complaint: SOA - Chief complaint Chief Complaint: Resp - History obtained from History obtained from: Patient - History of Present Illness Timing: Today Pain level max: 0 Pain level now: 0 - Additonal information Additional information: 63-year-old female states that she is out of her DuoNeb solution for her nebulizer machine. Unable to see her doctor. Came in for evaluation. No fevers. No coughing. Mildly short of breath. She still has her albuterol and Qvar. 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 : Incontinence HEENT: Chronic vision loss, Chronic sinusitis Psych: Depression, Anxiety, Bipolar disorder Musculoskeletal: Osteoarthritis Derm: None - Past Surgical History Past Surgical History: Yes General: 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 /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: 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 HEENT: Tonsil/Adenoidectomy - Present Medications Home Medications: Ambulatory Orders Medication Instructions Recorded Confirmed Aspirin [Aspirin EC] 81 mg PO DAILY 02/25/19 02/26/19 Beclomethasone 40 Mcg [Qvar 40] 1 puffs INH BID 02/25/19 02/26/19 Fluticasone Propionate 1 spray NS DAILY PRN 02/25/19 02/26/19 Gabapentin 300 mg PO TID 02/25/19 02/26/19 Ipratropium/Albuterol [Duoneb] 3 ml INH BID 02/25/19 02/26/19 Montelukast [Singulair] 10 mg PO QPM 02/25/19 02/26/19 metFORMIN [Glucophage] 500 mg PO BID 02/25/19 02/26/19 Albuterol Sulf [Ventolin Hfa 2 puffs PO Q4H PRN 02/26/19 02/26/19 Inhaler] Bumetanide 1 mg PO DAILY #30 07/18/19 07/18/19 Isosorbide Mononitrate ER [Imdur] 30 mg PO DAILY #30 tablet 02/26/19 Simvastatin 10 mg PO DAILY #30 tablet 02/26/19 Nitroglycerin [Nitrostat] 0.4 mg SL Q5M PRN #30 tab.subl 02/27/19 predniSONE [Deltasone] 10 mg PO [id number] #42 tab 03/14/19 Albuterol 2.5 mg INH Q4H PRN #30 neb 03/28/19 Albuterol Sulf [Ventolin Hfa 1 - 2 puffs INH Q4HR PRN #1 inhaler 03/28/19 Inhaler] Ipratropium/Albuterol [Duoneb] 3 ml INH Q6H #60 neb 03/28/19 - Allergies Allergies/Adverse Reactions: Allergies Allergy/AdvReac Type Severity Reaction Status Date / Time levofloxacin [From Levaquin] Allergy Hives Verified 03/28/19 11:24 - Social History Does the pt smoke?: No Smoking Status: Never smoker Does the pt drink ETOH?: Yes Does the pt have substance abuse?: No - Immunizations Immunizations are current?: Yes - POLST Patient has POLST: No POLST Status: Full Code PD ED PE NORMAL - Vitals Vital signs reviewed: Yes - General General: Alert and oriented X 3, No acute distress - HEENT HEENT: Moist mucous membranes - Neck Neck: Supple, no meningeal sign - Cardiac Cardiac: RRR - Respiratory Respiratory: Clear bilaterally, Other (mild wheezing B) - Abdomen Abdomen: Soft, Non tender, Non distended - Derm Derm: Warm and dry, No rash - Neuro Neuro: Alert and oriented X 3 Results - Vitals Vitals: Vital Signs - 24 hr 03/28/19 03/28/19 11:20 12:02 Temperature 36.1 C L Heart Rate 66 58 L Respiratory 19 16 Rate Blood Pressure 133/75 H O2 Saturation 96 Oxygen O2 Source Room air PD MEDICAL DECISION MAKING - ED course Complexity details: considered differential, d/w patient ED course: 63-year-old female with her usual COPD. Feels better after a DuoNeb treatment. Will refill her medications for home and follow-up with her doctor. Patient counseled regarding signs and symptoms for which I believe and urgent re- evaluation would be necessary. Patient with good understanding of and agreement to plan and is comfortable going home at this time This document was made in part using voice recognition software. While efforts are made to proofread this document, sound alike and grammatical errors may occur. Departure - Departure Disposition: 01 Home, Self Care Clinical Impression: COPD (chronic obstructive pulmonary disease) Qualifiers: COPD type: unspecified COPD Qualified Code(s): J44.9 - Chronic obstructive pulmonary disease, unspecified Condition: Good Instructions: ED COPD Flare Follow-Up: TAWANDA BORRERO MD [Primary Care Provider] - Within 1 week Prescriptions: Albuterol Sulf [Ventolin Hfa Inhaler] 1 - 2 puffs INH Q4HR PRN #1 inhaler PRN Reason: Shortness Of Air/Wheezing Albuterol 2.5 mg INH Q4H PRN #30 neb PRN Reason: Wheezing Ipratropium/Albuterol [Duoneb] 3 ml INH Q6H #60 neb Comments: Use the medications as prescribed. Return if you worsen. Follow-up with your doctor for further care. Discharge Date/Time: 03/28/19 12:18
== END 2019-03-28 12:18 | disposition home or self-care (01) ==
LOC: ED 11:17
DX: J44.9 Chronic obstructive pulmonary disease, unspecified (principal); I10 Essential (primary) hypertension; E11.9 Type 2 diabetes mellitus without complications; Z79.84 Long term (current) use of oral hypoglycemic drugs
CPT/HCPCS: 94640; 99283

== ENCOUNTER 2019-04-21 06:57 | Emergency (ER) | payer MEDICARE, MEDICAID ==
[2019-04-21 07:03] VITALS: BP 145/71
--- NOTE | 2019-04-21 07:18 | ED Physician Documentation ---
PD HPI SKIN - Stated complaint Stated Complaint: ITCHING ALL OVER - Chief complaint Chief Complaint: Allergic Rx - History obtained from History obtained from: Patient - History of Present Illness Timing - onset: How many weeks ago (2) Timing - duration: Weeks (2) Timing - details: Gradual onset, Still present Location: [place] Quality / character: Itchy Improved by: Other (nothing) Associated symptoms: No: Fever, Myalgias, Joint pain, Headache, Facial swelling, Dyspnea, Abd pain, N/V/D, Urinary sx Contributing factors: Unknown Similar symptoms before: Has not had sx before Recently seen: Clinic - Additional information Additional information: 63-year-old female who was recently moved to the area and 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 She is going to see her primary care doctor and was put on some Claritin loratadine the itching has progressed. She has some tiny red spots all over her body. 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 : Incontinence HEENT: Chronic vision loss, Chronic sinusitis Psych: Depression, Anxiety, Bipolar disorder Musculoskeletal: Osteoarthritis Derm: None - Past Surgical History Past Surgical History: Yes General: 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: 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 HEENT: Tonsil/Adenoidectomy - Present Medications Home Medications: Ambulatory Orders Medication Instructions Recorded Confirmed Aspirin [Aspirin EC] 81 mg PO DAILY 02/25/19 02/26/19 Beclomethasone 40 Mcg [Qvar 40] 1 puffs INH BID 02/25/19 02/26/19 Fluticasone Propionate 1 spray NS DAILY PRN 02/25/19 02/26/19 Gabapentin 300 mg PO TID 02/25/19 02/26/19 Ipratropium/Albuterol [Duoneb] 3 ml INH BID 02/25/19 02/26/19 Montelukast [Singulair] 10 mg PO QPM 02/25/19 02/26/19 metFORMIN [Glucophage] 500 mg PO BID 02/25/19 02/26/19 Albuterol Sulf [Ventolin Hfa 2 puffs PO Q4H PRN 02/26/19 02/26/19 Inhaler] Bumetanide 1 mg PO DAILY #30 02/26/19 02/26/19 Isosorbide Mononitrate ER [Imdur] 30 mg PO DAILY #30 tablet 02/26/19 Simvastatin 10 mg PO DAILY #30 tablet 02/26/19 Nitroglycerin [Nitrostat] 0.4 mg SL Q5M PRN #30 tab.subl 02/27/19 predniSONE [Deltasone] 10 mg PO [id number] #42 tab 03/14/19 Albuterol 2.5 mg INH Q4H PRN #30 neb 03/28/19 Albuterol Sulf [Ventolin Hfa 1 - 2 puffs INH Q4HR PRN #1 inhaler 03/28/19 Inhaler] Ipratropium/Albuterol [Duoneb] 3 ml INH Q6H #60 neb 03/28/19 Ivermectin [Stromectol] 18 mg PO ONCE #12 tablet 04/21/19 - Allergies Allergies/Adverse Reactions: Allergies Allergy/AdvReac Type Severity Reaction Status Date / Time levofloxacin [From Levaquin] Allergy Hives Verified 04/21/19 07:03 - Social History Does the pt smoke?: No Smoking Status: Former smoker Does the pt drink ETOH?: Yes Does the pt have substance abuse?: No - Immunizations Immunizations are current?: Yes - POLST Patient has POLST: No POLST Status: Full Code PD ED PE NORMAL - Vitals Vital signs reviewed: Yes (hypertensive mild ) - General General: Alert and oriented X 3, No acute distress, Well developed/nourished - HEENT HEENT: Atraumatic, PERRL, EOMI - Respiratory Respiratory: No respiratory distress - Derm Derm: Normal color, Warm and dry, Other (There are tiny 1mm round red papules over the trunk and extremities. Some are excoriated. They are not closely grouped. I do not see these in the scalp. 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 Departure - Departure Disposition: 01 Home, Self Care Clinical Impression: Scabies Condition: Stable Instructions: ED Scabies Follow-Up: TAWANDA BORRERO MD [Primary Care Provider] - Prescriptions: Ivermectin [Stromectol] 18 mg PO ONCE #12 tablet
== END 2019-04-21 07:34 | disposition home or self-care (01) ==
LOC: ED 06:57
DX: B86 Scabies (principal); I10 Essential (primary) hypertension; E11.42 Type 2 diabetes mellitus with diabetic polyneuropathy; Z79.84 Long term (current) use of oral hypoglycemic drugs; Z79.82 Long term (current) use of aspirin; Z87.891 Personal history of nicotine dependence
CPT/HCPCS: 99282; 99284

== ENCOUNTER 2019-07-10 09:52 | Outpatient (CLI) | payer MEDICARE, MEDICAID ==
[2019-07-10 12:05] LABS: BASOPHILS % (AUTO) 0.6 %; EOSINOPHILS # (AUTO) 0.2 10^3/uL (0.0-0.7); EOSINOPHILS % (AUTO) 3.8 %; HGB - HEMOGLOBIN 14.3 g/dL (12.0-16.0); LYMPHOCYTES # (AUTO) 2.7 10^3/uL (1.5-3.5); LYMPHOCYTES % (AUTO) 41.8 %; MEAN CORPUSCULAR HEMOGLOBIN 29.7 pg (27.0-31.0); MEAN CORPUSCULAR HGB CONC 32.4 g/dL (32.0-36.0); MEAN CORPUSCULAR VOLUME 91.9 fL (81.0-99.0); MEAN PLATELET VOLUME 10.7 fL (7.9-10.8); MONOCYTES # (AUTO) 0.4 10^3/uL (0.0-1.0); NEUTROPHILS % (AUTO) 47.5 %; PLT - PLATELET COUNT 280 10^3/uL (130-450); RED BLOOD COUNT 4.81 10^6/uL (4.20-5.40); RED CELL DISTRIBUTION WIDTH 12.9 % (12.0-15.0); WHITE BLOOD COUNT 6.3 x10^3/uL (4.8-10.8)
[2019-07-10 12:33] LABS: HEMOGLOBIN A1C 0.61 g/dL; HEMOGLOBIN A1C % 5.9 % (4.6-6.2)
[2019-07-10 12:53] LABS: ALBUMIN 4.1 g/dL (3.2-5.5); ALBUMIN/GLOBULIN RATIO 1.4 (1.0-2.2); ALKALINE PHOSPHATASE 57 IU/L (42-121); ALT ALANINE AMINOTRANSFERASE 20 IU/L (10-60); AST ASPARTATE AMINOTRANSFERASE 18 IU/L (10-42); BILIRUBIN,TOTAL 0.5 mg/dL (0.2-1.0); BUN - BLOOD UREA NITROGEN 18 mg/dL (6-20); CALCIUM 9.3 mg/dL (8.5-10.3); CARBON DIOXIDE - CO2 28 mmol/L (21-32); CHLORIDE 106 mmol/L (101-111); CHOL/HDL RATIO 2.3 (<4.4); CHOLESTEROL 185 mg/dL; CREATININE 0.8 mg/dL (0.4-1.0); GFR - MDRD 72 (>89); GLUCOSE 114 mg/dL (70-100); HDL CHOLESTEROL 80 mg/dL; LDL CHOLESTEROL,CALCULATED 91 mg/dL; LDL/HDL RATIO 1.1 (<4.4); SODIUM 142 mmol/L (135-145); VLDL CHOLESTEROL 14 mg/dL
== END 2019-07-10 09:53 | disposition home or self-care (01) ==
LOC: LAB.N 09:52
PROVIDERS: ATTEND Family Medicine
DX: E11.9 Type 2 diabetes mellitus without complications (principal); I10 Essential (primary) hypertension
CPT/HCPCS: 36415; 80053; 80061; 83036; 83721; 84443; 85025

== ENCOUNTER 2019-07-17 16:18 | Emergency (ER) | payer MEDICARE, MEDICAID ==
[2019-07-17 17:01] LABS: BASOPHILS # (AUTO) 0.1 10^3/uL (0.0-0.1); BASOPHILS % (AUTO) 0.6 %; EOSINOPHILS # (AUTO) 0.6 10^3/uL (0.0-0.7); EOSINOPHILS % (AUTO) 7.3 %; LYMPHOCYTES # (AUTO) 2.9 10^3/uL (1.5-3.5); LYMPHOCYTES % (AUTO) 35.8 %; MEAN CORPUSCULAR HEMOGLOBIN 29.7 pg (27.0-31.0); MEAN CORPUSCULAR HGB CONC 32.4 g/dL (32.0-36.0); MEAN CORPUSCULAR VOLUME 91.6 fL (81.0-99.0); MEAN PLATELET VOLUME 10.1 fL (7.9-10.8); MONOCYTES # (AUTO) 0.5 10^3/uL (0.0-1.0); NEUTROPHILS # (AUTO) 4.1 10^3/uL (1.5-6.6); NEUTROPHILS % (AUTO) 49.9 %; PLT - PLATELET COUNT 255 10^3/uL (130-450); RED BLOOD COUNT 4.38 10^6/uL (4.20-5.40); RED CELL DISTRIBUTION WIDTH 12.6 % (12.0-15.0); WHITE BLOOD COUNT 8.1 x10^3/uL (4.8-10.8)
[2019-07-17 17:15] LABS: ALBUMIN 4.3 g/dL (3.2-5.5); ALBUMIN/GLOBULIN RATIO 1.6 (1.0-2.2); BILIRUBIN,TOTAL 0.5 mg/dL (0.2-1.0); CALCIUM 9.5 mg/dL (8.5-10.3); CREATININE 0.9 mg/dL (0.4-1.0)
[2019-07-17 17:23] LABS: BILIRUBIN,URINE NEGATIVE (NEGATIVE); GLUCOSE, URINE (UA) NEGATIVE (NEGATIVE); KETONES,URINE (UA) TRACE mg/dL (NEGATIVE); LEUKOCYTE ESTERASE, URINE NEGATIVE (NEGATIVE); NITRITE,URINE NEGATIVE (NEGATIVE); OCCULT BLOOD,URINE NEGATIVE (NEGATIVE); PH,URINE 5.5 PH (5.0-7.5); PROTEIN,URINE NEGATIVE (NEGATIVE); UROBILINOGEN,URINE 0.2 (NORMAL) E.U./dL (NORMAL)
[2019-07-17 17:31] LABS: CLARITY,URINE CLEAR (CLEAR)
[2019-07-17] MEDS ORDERED: HYDROmorphone 1 MG/ML CARPUJECT IVP STA (17:54)
[2019-07-17] MEDS ORDERED: ONDANSETRON 4 MG/2 ML VIAL IVP STA ×2 (17:54→19:29)
--- NOTE | 2019-07-17 17:56 | ED Physician Documentation ---
PD HPI ABD PAIN - Stated complaint Stated Complaint: ABD/BACK PAIN, NAUSEA - PCP REFERRAL - Chief complaint Chief Complaint: Abd Pain - History obtained from History obtained from: Patient - History of Present Illness Timing - onset: Today (63-year-old woman with history of pancreatitis presents with gradual onset right upper quadrant pain radiating to the back today. She is not nauseous. She did feel similar to prior pancreatitis. She does not know why she had pancreatitis previously. She still has her gallbladder. No nausea. 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 : Incontinence HEENT: Chronic vision loss, Chronic sinusitis Psych: Depression, Anxiety, Bipolar disorder Musculoskeletal: Osteoarthritis Derm: None - Past Surgical History Past Surgical History: Yes General: 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: 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 HEENT: Tonsil/Adenoidectomy - Present Medications Home Medications: Ambulatory Orders Medication Instructions Recorded Confirmed Aspirin [Aspirin EC] 81 mg PO DAILY 02/25/19 02/26/19 Beclomethasone 40 Mcg [Qvar 40] 1 puffs INH BID 02/25/19 02/26/19 Fluticasone Propionate 1 spray NS DAILY PRN 02/25/19 02/26/19 Gabapentin 300 mg PO TID 02/25/19 02/26/19 Ipratropium/Albuterol [Duoneb] 3 ml INH BID 02/25/19 02/26/19 Montelukast [Singulair] 10 mg PO QPM 02/25/19 02/26/19 metFORMIN [Glucophage] 500 mg PO BID 02/25/19 02/26/19 Albuterol Sulf [Ventolin Hfa 2 puffs PO Q4H PRN 02/26/19 02/26/19 Inhaler] Bumetanide 1 mg PO DAILY #30 02/26/19 02/26/19 Isosorbide Mononitrate ER [Imdur] 30 mg PO DAILY #30 tablet 02/26/19 Simvastatin 10 mg PO DAILY #30 tablet 02/26/19 Nitroglycerin [Nitrostat] 0.4 mg SL Q5M PRN #30 tab.subl 02/27/19 predniSONE [Deltasone] 10 mg PO [id number] #42 tab 03/14/19 Albuterol 2.5 mg INH Q4H PRN #30 neb 03/28/19 Albuterol Sulf [Ventolin Hfa 1 - 2 puffs INH Q4HR PRN #1 inhaler 03/28/19 Inhaler] Ipratropium/Albuterol [Duoneb] 3 ml INH Q6H #60 neb 03/28/19 Ivermectin [Stromectol] 18 mg PO ONCE #12 tablet 04/21/19 Ondansetron Odt [Zofran] 4 mg TL Q6H PRN #10 tablet 07/17/19 Oxycodone HCl/Acetaminophen 1 - 2 each PO Q6H PRN #10 tablet 07/17/19 [Percocet 5-325 mg Tablet] - Allergies Allergies/Adverse Reactions: Allergies Allergy/AdvReac Type Severity Reaction Status Date / Time levofloxacin [From Levaquin] Allergy Hives Verified 07/17/19 16:26 - Social History Does the pt smoke?: No Smoking Status: Former smoker Does the pt drink ETOH?: Yes Does the pt have substance abuse?: No - Immunizations Immunizations are current?: Yes - POLST Patient has POLST: No POLST Status: Full Code PD ED PE NORMAL - Vitals Vital signs reviewed: Yes - General General: Alert and oriented X 3, No acute distress - HEENT HEENT: PERRL, EOMI - Neck Neck: Supple, no meningeal sign, No bony TTP - Cardiac Cardiac: RRR, Other (Loud systolic murmur which she says is chronic) - Respiratory Respiratory: No respiratory distress, Clear bilaterally - Abdomen Abdomen: Other (Exquisitely tender in the right upper quadrant with positive Martinez sign, no diffuse tenderness.) - Back Back: No CVA TTP, No spinal TTP - Derm Derm: Normal color, Warm and dry - Extremities Extremities: No edema, No calf tenderness / cord - Neuro Neuro: Alert and oriented X 3, Normal speech Results - Vitals Vitals: Vital Signs - 24 hr 07/17/19 07/17/19 16:27 18:15 Temperature 36.8 C Heart Rate 74 75 Respiratory 116 H 18 Rate Blood Pressure 132/77 H 139/74 H O2 Saturation 98 96 Oxygen O2 Source Room air - Labs Labs: Laboratory Tests 07/17/19 07/17/19 07/17/19 16:56 16:56 17:11 WBC 8.1 RBC 4.38 Hgb 13.0 Hct 40.1 MCV 91.6 MCH 29.7 MCHC 32.4 RDW 12.6 Plt Count 255 MPV 10.1 Neut # (Auto) 4.1 Lymph # (Auto) 2.9 [place] # (Auto) 0.5 Eos # (Auto) 0.6 Baso # (Auto) 0.1 Absolute Nucleated RBC 0.00 Nucleated RBC % 0.0 Sodium 140 Potassium 4.1 Chloride 102 Carbon Dioxide 28 Anion Gap 10.0 BUN 13 Creatinine 0.9 Estimated GFR (MDRD) 63 L Glucose 94 Calcium 9.5 Total Bilirubin 0.5 AST 20 ALT 22 Alkaline Phosphatase 55 Total Protein 7.0 Albumin 4.3 Globulin 2.7 Albumin/Globulin Ratio 1.6 Lipase 37 Urine Color YELLOW Urine Clarity CLEAR Urine pH 5.5 Ur Specific Thurman 1.025 Urine Protein NEGATIVE Urine Glucose (UA) NEGATIVE Urine Ketones TRACE Urine Occult Blood NEGATIVE Urine Nitrite NEGATIVE Urine Bilirubin NEGATIVE Urine Urobilinogen 0.2 (NORMAL) Ur Leukocyte Esterase NEGATIVE Ur Microscopic Review NOT INDICATED Urine Culture Comments NOT INDICATED Ethyl Alcohol 5.1 PD MEDICAL DECISION MAKING - ED course ED course: 59-year-old woman with recurrent pancreatitis. Seems more like may be a gallbladder episode here today. Her labs are normal though. She does have on ultrasound small about gallbladder polyps and a mildly dilated pancreatic duct. She did have an MRCP she says in [place] in 2014 which was without pertinent positive findings. She is feeling better after pain and nausea medication. And on recheck she was nontender prior to discharge. Departure - Departure Disposition: 01 Home, Self Care Clinical Impression: Abdominal pain Qualifiers: Abdominal location: right upper quadrant Qualified Code(s): R10.11 - Right upper quadrant pain Condition: Good Record reviewed to determine appropriate education?: Yes Instructions: Abdominal Pain Prescriptions: Ondansetron Odt [Zofran] 4 mg TL Q6H PRN #10 tablet PRN Reason: Nausea / Vomiting Oxycodone HCl/Acetaminophen [Percocet 5-325 mg Tablet] 1 - 2 each PO Q6H PRN #10 tablet PRN Reason: pain Comments: As discussed your pancreatic enzymes are normal, but she did have a mildly dilated pancreatic duct. This could be a mild case of pancreatitis and I want you to basically go to a liquid diet for the next 24 hours and then slowly go back to normal food. Return for new or worsening symptoms. Follow-up with your doctor. Since it is been 4 years since your last MRI of your pancreas your doctor may want to schedule you for a new one. Do not drink or drive while taking prescription pain medication.
--- NOTE | 2019-07-17 19:20 | Ultrasound Report ---
Reason: RUQ pain Procedure Date: 07/17/2019 Accession Number: [id number] / [id number] Procedure: US - Abdomen Limited CPT Code: Final Report FULL RESULT: EXAM: ABDOMEN ULTRASOUND LIMITED, RUQ EXAM DATE: 07/17/2019 06:55 PM. CLINICAL HISTORY: RUQ pain. COMPARISON: None. TECHNIQUE: Real-time scanning was performed with static images obtained. FINDINGS: Liver: Normal in size and echotexture. 15.5 cm. Main portal vein flow: Hepatopetal. Gallbladder: Small gallbladder polyps 3-5 mm. No stones, wall thickening, or sonographic Martinez's sign. Biliary System: CBD measures 5 mm. No intrahepatic or extrahepatic ductal dilatation. Pancreas: Pancreatic duct is 4 mm which is dilated. Right kidney: 11.5 cm unremarkable Other: None. IMPRESSION: 1. Small gallbladder polyps. 2. Mildly dilated pancreatic duct. Further evaluation could be with MR pancreas/MRCP RADIA
[2019-07-17] MEDS ORDERED: ONDANSETRON ODT 4 MG Prepack 2 TL STA (19:29)
[2019-07-17] MEDS ORDERED: oxyCODONE/ACET 5/325 Prepack 4 PO STA (19:29)
[2019-07-17] MEDS ORDERED: HYDROmorphone 2 MG/ML VIAL IVP STA (19:29)
[2019-07-17 20:33] VITALS: BP 126/74
== END 2019-07-17 20:32 | disposition home or self-care (01) ==
LOC: ED 16:18
DX: R10.11 Right upper quadrant pain (principal); K86.89 Other specified diseases of pancreas; K82.4 Cholesterolosis of gallbladder; R01.1 Cardiac murmur, unspecified; I10 Essential (primary) hypertension; E11.42 Type 2 diabetes mellitus with diabetic polyneuropathy; Z79.84 Long term (current) use of oral hypoglycemic drugs; Z79.82 Long term (current) use of aspirin; Z87.891 Personal history of nicotine dependence
CPT/HCPCS: 36415; 76705; 80053; 81003; 83690; 85025; 96374; 96375; 96376; 99283; 99284; J1170; 80320; 81001; 87086

== ENCOUNTER 2019-07-28 08:28 | Outpatient (CLI) | payer MEDICARE, MEDICAID ==
[2019-07-28] MEDS ORDERED: GADOBUTROL 15 MMOL/15 ML VIAL ONE (09:04)
[2019-07-28] MEDS ORDERED: GADOBUTROL 15 MMOL/15 ML VIAL IVP ONE (11:00)
--- NOTE | 2019-07-29 05:01 | MRI Report ---
Reason: HX OF PANCREATITIS, ABD PAIN, RUQ Procedure Date: 07/28/2019 Accession Number: [id number] / [id number] Procedure: MRI - Abdomen W/WO CPT Code: Final Report FULL RESULT: EXAM: MR ABDOMEN WITH AND WITHOUT CONTRAST (MR PANCREAS AND MRCP) EXAM DATE: 07/28/2019 09:16 AM. CLINICAL HISTORY: HX OF PANCREATITIS, ABD PAIN, RUQ. COMPARISON: None. TECHNIQUE: Multiplanar breath-hold T1, T2, and DWI sequences obtained through the pancreas and abdomen on an MR scanner. Dedicated 2D and 3D MRCP sequences obtained through the biliary and pancreatic ducts. Images obtained before and after administration of intravenous contrast. Multiphase postcontrast sequences obtained through the pancreas. FINDINGS: Motion artifact degrades the postcontrast images. Lung Bases: Unremarkable. Liver: The liver has normal size, morphology and signal. No evidence of mass. Gallbladder: The gallbladder is partially distended and appears normal with no wall thickening or stone. Bile Ducts: There is no intrahepatic biliary dilatation. The common bile duct is normal in size measuring 4 mm. Pancreas: The pancreas appears normal with no mass. There is mild dilatation of the proximal pancreatic duct extending to the distal body without stricture, side duct ectasia, or tortuosity. It measures 5 mm. The distal pancreatic duct measures 2 mm in diameter. No intraductal filling defects are seen. Spleen: The spleen appears normal. Kidneys: The kidneys appear normal with no mass or hydronephrosis. Adrenals: The adrenals appear normal. Bowel: The visualized segments of the small bowel and colon appear normal with no inflammation or obstruction. Retroperitoneum: The retroperitoneal structures appear normal with no mass or lymphadenopathy. Other: None. IMPRESSION: Mild dilatation of the proximal pancreatic duct without evidence of stricture, stone, or mass. Although the pancreatic parenchyma is normal in appearance, pancreatic ductal dilatation is most commonly due to chronic pancreatitis. RADIA
== END 2019-07-28 08:29 | disposition home or self-care (01) ==
LOC: DI 08:28
PROVIDERS: ATTEND Family Medicine
DX: K86.89 Other specified diseases of pancreas (principal); R10.11 Right upper quadrant pain
CPT/HCPCS: 74183; A9585

== ENCOUNTER 2019-10-22 14:10 | Outpatient (CLI) | payer MEDICARE ==
--- NOTE | 2019-10-23 10:24 | DEXA Report ---
Reason: POSTMENOPAUSAL Procedure Date: 10/22/2019 Accession Number: [id number] / [id number] Procedure: DEX - Dexa Spine and/or Hip CPT Code: Final Report FULL RESULT: EXAM: Dexa Spine and/or Hip DATE: 10/22/2019 2:39 PM CLINICAL HISTORY: POSTMENOPAUSAL TECHNIQUE: Dual energy x-ray absorptiometry (DXA) was performed on a [employer] System. Regions measured are the AP Spine, femoral neck, and if needed forearm. COMPARISON: None. In accordance with the International Society for Clinical Densitometry (ISCD) guidelines, data from previous exams may be reanalyzed using current recommendations and techniques. This is done to allow a more accurate basis for comparison with the current study. FINDINGS: The data for the lumbar spine is as follows: BMD (g/cm/cm) T-SCORE Z-SCORE REGION L1 1.090 -0.3 0.1 L2 1.137 -0.5 -0.1 L3 1.204 0.0 0.5 L4 1.150 -0.4 0.0 TOTAL 1.149 -0.3 0.2 NOTE: All evaluable vertebrae are used for classification The data for the hip is as follows: BMD (g/cm/cm) T-SCORE Z-SCORE REGION Neck 0.908 -0.9 -0.2 TOTAL 0.925 -0.7 -0.3 NOTE: The femoral neck or total proximal femur, whichever is lowest, is used for classification. IMPRESSION: THE WHO CLASSIFICATION BASED ON THE INTERNATIONAL REFERENCE STANDARD IS NORMAL. THE FRACTURE RISK IS NOT INCREASED. RECOMMENDATION: Patients with diagnosis of osteoporosis or osteopenia should have regular bone mineral density assessment. For those eligible for Medicare, routine testing is allowed once every 2 years. Testing frequency can be increased for patients who have rapidly progressing disease or for those who are receiving medical therapy to restore bone mass. COMMENT: World Health Organization (WHO) definitions for osteoporosis and osteopenia: NORMAL BMD: T-score at -1.0 or higher, fracture risk is low OSTEOPENIA BMD: T-score between -1.0 and -2.5, fracture risk is increased. OSTEOPOROSIS BMD: T-score at -2.5 or lower, fracture risk is high. National Osteoporosis Foundation recommends: 1. Obtain adequate dietary calcium (at least 1200 mg per day) and vitamin D (400-800 international units per day). 2. Participate, as appropriate, in regular weightbearing and muscle-strengthening exercise. 3. Avoid tobacco use and reduce alcohol and caffeine intake. 4. For more detailed information see the website at www.NOF.org.
== END 2019-10-22 14:11 | disposition home or self-care (01) ==
LOC: DI 14:10
PROVIDERS: ATTEND Family Medicine
DX: Z13.820 Encounter for screening for osteoporosis (principal); Z78.0 Asymptomatic menopausal state
CPT/HCPCS: 77080

== ENCOUNTER 2019-10-22 14:12 | Outpatient (CLI) | payer MEDICARE ==
--- NOTE | 2019-11-03 13:26 | Mammography Report ---
Reason: ROUTINE MAMMO Procedure Date: 10/22/2019 Accession Number: [id number] / [id number] Procedure: PRABHU - Screening Mammo w/Colt CPT Code: Final Report FULL RESULT: EXAM: Screening Mammo w/Colt DATE: 10/22/2019 3:28 PM CLINICAL HISTORY: Routine screening TECHNIQUE: (B) - Bilateral CC and MLO views were obtained. COMPARISON: None PARENCHYMAL PATTERN: (A) - The breasts demonstrate scattered fibroglandular densities bilaterally. FINDINGS: There are no suspicious masses, calcifications, skin thickening, or areas of distortion. IMPRESSION: Negative examination. BI-RADS category 1. RECOMMENDATION: (ANNUAL) - Recommend routine annual screening mammography. BI-RADS CATEGORY: (1) - Negative. STANDARD QUALIFYING STATEMENTS: 1. This examination was not reviewed with the aid of Computer-Aided Detection (CAD). 2. A negative or benign imaging report should not preclude biopsy if clinically suspicious findings are present. 3. Dense breasts may obscure an underlying neoplasm. 4. This examination was reviewed with the aid of 3D breast imaging (tomosynthesis).
== END 2019-10-22 14:13 | disposition home or self-care (01) ==
LOC: DI 14:12
PROVIDERS: ATTEND Family Medicine
DX: Z12.31 Encounter for screening mammogram for malignant neoplasm of breast (principal)
CPT/HCPCS: 77063; 77067

== ENCOUNTER 2019-10-24 07:16 | Outpatient (CLI) | payer MEDICARE | END 2019-10-24 07:17 | disposition critical access hospital (66) | LOC: EMS 07:16 | PROVIDERS: ATTEND Surgery | DX: R06.02 Shortness of breath (principal) | CPT/HCPCS: A0425; A0427 ==

== ENCOUNTER 2019-10-24 07:34 | Emergency (ER) | payer MEDICARE ==
--- NOTE | 2019-10-24 07:50 | ED Physician Documentation ---
PD HPI DYSPNEA - Stated complaint Stated Complaint: SOA - Chief complaint Chief Complaint: Resp - History obtained from History obtained from: Patient, EMS - History of Present Illness Timing - onset: How many days ago (few days of worsening dyspnea, with activity and then at rest overnight. No noted cough, fevers, sputum. Had some chest pressure this morning with the worse dyspnea. Some leg edema. Has history of aortic stenosis and is in process of referral for TAVR procedure by Dr. Burgos(?) in [place]. Cardio is [facility] Alberto in [place]. Patient states her BP had been about 120/80 regularly and has been lower the past month, often about 100-110 systolic in AMs, and not higher than 110s during the day.) Timing - onset during: Rest, Light activity Timing - duration: Days Timing - details: Gradual onset, Still present Inciting event(s): No: Out of meds, URI, Immobilization/travel Improved by: Rest, Sitting up. No: O2 Worsened by: Exertion, Laying flat Associated symptoms: Wheezing, Bilateral edema (mild). No: Fever, Cough, Chest pain / discomfort Similar symptoms before: Diagnosis (COPD as well as CHF (but related to and not CAD).) Review of Systems Constitutional: denies: Fever, Chills, Myalgias Nose: denies: Rhinorrhea / runny nose, Congestion Throat: denies: Sore throat Cardiac: reports: Chest pain / pressure, Pedal edema. denies: Palpitations, Calf pain Respiratory: reports: Dyspnea, Wheezing. denies: Cough GI: denies: Abdominal Pain, Nausea, Vomiting, Diarrhea, Bloody / black stool Skin: denies: Rash, Lesions Musculoskeletal: denies: Neck pain, Back pain Neurologic: reports: Near syncope (lightheaded with standing up and walking the past month or so.) Endocrine: denies: Weight loss PD PAST MEDICAL HISTORY - Past Medical History Cardiovascular: Congestive heart failure, Hypertension, High cholesterol, Coronary artery disease, Angina, Murmur, Valve disorder Respiratory: COPD, Emphysema, Shortness of breath, Other Neuro: Headaches, Peripheral neuropathy Endocrine/Autoimmune: Type 2 diabetes GI: GERD SUBSCRIPTION AGENT: None : Incontinence HEENT: Chronic vision loss, Chronic sinusitis Psych: Depression, Anxiety, Bipolar disorder Musculoskeletal: Osteoarthritis Derm: None - Past Surgical History Past Surgical History: Yes General: 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 /SUBSCRIPTION AGENT: 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 HEENT: Tonsil/Adenoidectomy - Present Medications Home Medications: Ambulatory Orders Medication Instructions Recorded Confirmed Aspirin [Aspirin EC] 81 mg PO DAILY 02/25/19 10/24/19 Beclomethasone 40 Mcg [Qvar 40] 1 puffs INH BID 02/25/19 10/24/19 Fluticasone Propionate 1 spray NS DAILY PRN 02/25/19 10/24/19 Gabapentin 300 mg PO TID 02/25/19 10/24/19 Ipratropium/Albuterol [Duoneb] 3 ml INH BID 02/25/19 10/24/19 Montelukast [Singulair] 10 mg PO QPM 02/25/19 10/24/19 metFORMIN [Glucophage] 500 mg PO BID 02/25/19 10/24/19 Albuterol Sulf [Ventolin Hfa 2 puffs PO Q4H PRN 02/26/19 10/24/19 Inhaler] Bumetanide 1 mg PO DAILY #30 02/26/19 10/24/19 Simvastatin 10 mg PO DAILY #30 tablet 02/26/19 10/24/19 Albuterol Sulfate [Albuterol 2 puffs IH QID #1 hfa.aer.ad 10/24/19 Sulfate Hfa] Losartan Potassium 25 mg ORAL DAILY 10/24/19 10/24/19 dexAMETHasone [Decadron] 4 mg PO DAILY #5 tablet 10/24/19 - Allergies Allergies/Adverse Reactions: Allergies Allergy/AdvReac Type Severity Reaction Status Date / Time levofloxacin [From Levaquin] Allergy Hives Verified 07/17/19 16:26 - Social History Does the pt smoke?: No Smoking Status: Former smoker Does the pt drink ETOH?: Yes Does the pt have substance abuse?: No - Immunizations Immunizations are current?: Yes - POLST Patient has POLST: No POLST Status: Full Code PD ED PE NORMAL - Vitals Vital signs reviewed: Yes - General General: Alert and oriented X 3, No acute distress, Well developed/nourished - HEENT HEENT: Moist mucous membranes, Pharynx benign - Neck Neck: Supple, no meningeal sign, No adenopathy, No JVD - Cardiac Cardiac: RRR, Other (2/6 systolic murmur left chest radiating to neck, c/w . ) - Respiratory Respiratory: No: Clear bilaterally (no crackles; some mild exp tightness but not wheezing per se. ) - Abdomen Abdomen: Soft, Non tender - Derm Derm: Normal color, Warm and dry - Extremities Extremities: No deformity, No tenderness to palpate, Normal ROM s pain, No calf tenderness / cord, Other (1+ edema in both legs/ankles.) - Neuro Neuro: Alert and oriented X 3, No motor deficit, Normal speech Results - Vitals Vitals: Vital Signs - 24 hr 10/24/19 10/24/19 10/24/19 07:37 07:53 09:00 Temperature 36.5 C Heart Rate 83 80 76 Respiratory 24 18 20 Rate Blood Pressure 113/68 119/73 120/80 O2 Saturation 95 96 100 10/24/19 10/24/19 10/24/19 09:12 10:00 11:00 Temperature Heart Rate 72 84 80 Respiratory 15 20 18 Rate Blood Pressure 119/76 112/76 O2 Saturation 97 99 10/24/19 10/24/19 12:08 13:03 Temperature 36.9 C 36.5 C Heart Rate 74 84 Respiratory 14 18 Rate Blood Pressure 115/68 107/64 O2 Saturation 97 98 Oxygen O2 Source Room air Oxygen Flow Rate 2 - EKG (time done) 07:41 Rate: Rate (enter#) (76) Rhythm: NSR [place]: Normal Intervals: Normal PA QRS: Normal Ischemia: Normal ST segments. No: ST elevation c/w ischemia, ST depression - Labs Labs: Laboratory Tests 10/24/19 10/24/19 10/24/19 08:21 08:21 08:21 WBC 8.5 RBC 4.46 Hgb 13.3 Hct 41.4 MCV 92.8 MCH 29.8 MCHC 32.1 RDW 13.1 Plt Count 258 MPV 10.7 Neut # (Auto) 4.9 Lymph # (Auto) 2.7 [place] # (Auto) 0.5 Eos # (Auto) 0.3 Baso # (Auto) 0.1 Absolute Nucleated RBC 0.00 Nucleated RBC % 0.0 Sodium 138 Potassium 3.5 Chloride 103 Carbon Dioxide 26 Anion Gap 9.0 BUN 24 H Creatinine 1.2 H Estimated GFR (MDRD) 45 L Glucose 120 H Calcium 9.0 Magnesium 2.1 Total Bilirubin 0.3 AST 19 ALT 22 Alkaline Phosphatase 64 Troponin I High Sens 5.6 B-Natriuretic Peptide Total Protein 7.1 Albumin 4.3 Globulin 2.8 Albumin/Globulin Ratio 1.5 Lipase 29 10/24/19 08:21 WBC RBC Hgb Hct MCV MCH MCHC RDW Plt Count MPV Neut # (Auto) Lymph # (Auto) [place] # (Auto) Eos # (Auto) Baso # (Auto) Absolute Nucleated RBC Nucleated RBC % Sodium Potassium Chloride Carbon Dioxide Anion Gap BUN Creatinine Estimated GFR (MDRD) Glucose Calcium Magnesium Total Bilirubin AST ALT Alkaline Phosphatase Troponin I High Sens B-Natriuretic Peptide 47 Total Protein Albumin Globulin Albumin/Globulin Ratio Lipase - Rads (name of study) chest xray Radiology: Prelim report reviewed, See rad report (no acute disease in the chest) PD MEDICAL DECISION MAKING - ED course Complexity details: considered differential (Could be some element of COPD. She does have a history of aortic stenosis and is concerned about CHF. She had received Lasix 80 mg and also has Nitropaste by EMS prior to arrival. Her blood pressure is a bit low at 113/68. With her aortic stenosis she actually needs to have a higher pressure so will take the Nitropaste off. She states her blood pressures been running lower over the last month and this may have been contributing to some of her CHF and lieu of it be related to valvular disorder and not ischemic heart disease. I can talk with her carpenter refrigerator about changing her medicine so her pressures a little higher. She actually does not seem fluid overloaded per se. She is already had the Lasix so we will have some diuresis. Otherwise we will check labs and electrolytes and do a DuoNeb as well.), d/w patient, d/w design center consultant (I talked with on-call cardiology in [place]. They would prefer to keep her blood pressure approximately 120-ely. She has been slightly lower than that while 100 210 the last month or so. This may have allowed for some poor cardiac output and subsequent CHF related to the aortic stenosis. As such will allow her pressure to be a little higher and decrease her losartan at this time. To follow-up with her primary care later this week. Otherwise I think her dyspnea at this point is more COPD so can have her use her nebulizer and inhaler regularly which she does not commonly need to do and also had steroids for several days.) Departure - Departure Disposition: 01 Home, Self Care Clinical Impression: Acute exacerbation of chronic obstructive pulmonary disease (COPD) Aortic stenosis Qualifiers: Cardiac valve disease etiology: etiology unspecified Qualified Code(s): I35.0 - Nonrheumatic aortic (valve) stenosis Condition: Stable Record reviewed to determine appropriate education?: Yes Instructions: ED COPD Flare Follow-Up: Trip Coulter DO [Primary Care Provider] - Obdulio Michaud MD [Physician No Access] - Prescriptions: Albuterol Sulfate [Albuterol Sulfate Hfa] 2 puffs IH QID #1 hfa.aer.ad dexAMETHasone [Decadron] 4 mg PO DAILY #5 tablet Comments: Stay well-hydrated. Avoid salty foods. I think your trouble breathing was more related to some asthma or COPD flareup and did not appear to be congestive failure. In fact your blood pressure is relatively low in April of your aortic stenosis. Hold your losartan for the next several days to a week or so. Hold the Bumex diuretic today and may be tomorrow. See how your blood pressure is doing resume the diuretic if your blood pressure is more closer to 120 systolic. Use the dexamethasone steroid daily for the next 5 days to help with reducing bronchial inflammation. Use your DuoNeb nebulizer or albuterol inhaler 4 times a day for the next week as well. Recheck if not improving well during the next few days. Follow-up with your primary care or Dr. Michaud's office regarding any further medication changes. Discharge Date/Time: 10/24/19 12:45
[2019-10-24] MEDS ORDERED: IPRATROPIUM/ALBUTEROL 3 ML NEB INH STA (08:09)
[2019-10-24 08:36] LABS: BASOPHILS # (AUTO) 0.1 10^3/uL (0.0-0.1); BASOPHILS % (AUTO) 0.8 %; EOSINOPHILS # (AUTO) 0.3 10^3/uL (0.0-0.7); HGB - HEMOGLOBIN 13.3 g/dL (12.0-16.0); LYMPHOCYTES # (AUTO) 2.7 10^3/uL (1.5-3.5); LYMPHOCYTES % (AUTO) 31.8 %; MEAN CORPUSCULAR HEMOGLOBIN 29.8 pg (27.0-31.0); MEAN CORPUSCULAR HGB CONC 32.1 g/dL (32.0-36.0); MEAN CORPUSCULAR VOLUME 92.8 fL (81.0-99.0); MEAN PLATELET VOLUME 10.7 fL (7.9-10.8); MONOCYTES # (AUTO) 0.5 10^3/uL (0.0-1.0); MONOCYTES % (AUTO) 6.4 %; NEUTROPHILS # (AUTO) 4.9 10^3/uL (1.5-6.6); NEUTROPHILS % (AUTO) 57.8 %; PLT - PLATELET COUNT 258 10^3/uL (130-450); RED BLOOD COUNT 4.46 10^6/uL (4.20-5.40); RED CELL DISTRIBUTION WIDTH 13.1 % (12.0-15.0); WHITE BLOOD COUNT 8.5 x10^3/uL (4.8-10.8)
[2019-10-24 08:40] LABS: ALBUMIN 4.3 g/dL (3.2-5.5); ALBUMIN/GLOBULIN RATIO 1.5 (1.0-2.2); BILIRUBIN,TOTAL 0.3 mg/dL (0.2-1.0); CREATININE 1.2 mg/dL (0.4-1.0); MAGNESIUM 2.1 mg/dL (1.7-2.8); TOTAL PROTEIN 7.1 g/dL (6.7-8.2)
--- NOTE | 2019-10-24 08:43 | XRAY Report ---
Reason: Chest pain Procedure Date: 10/24/2019 Accession Number: [id number] / [id number] Procedure: XR - Chest 1 View X-Ray CPT Code: 84728 Final Report FULL RESULT: EXAM: CHEST RADIOGRAPHY EXAM DATE: 10/24/2019 08:34 AM. CLINICAL HISTORY: Chest pain. Shortness of breath. Valve disorder. History of CHF. COMPARISON: CHEST 2 VIEW 02/25/2019 4:55 PM. TECHNIQUE: 1 view. FINDINGS: Lungs/Pleura: Linear scar/atelectasis in the left lung base. No consolidation. No vascular congestion. No pneumothorax. Mediastinum: Heart size is normal. Aorta is mildly tortuous. Other: None. IMPRESSION: 1. No acute disease in the chest. RADIA
[2019-10-24] MEDS ORDERED: DEXAMETHASONE 10 MG/ML VIAL IVP STA (09:59)
[2019-10-24] MEDS ORDERED: SODIUM CHLORIDE 0.9% 500 ML IV ONE (11:05)
[2019-10-24 13:04] VITALS: BP 107/64
== END 2019-10-24 12:45 | disposition home or self-care (01) ==
LOC: EDUNIT# → ED 07:34
DX: J44.1 Chronic obstructive pulmonary disease with (acute) exacerbation (principal); I95.9 Hypotension, unspecified; I35.0 Nonrheumatic aortic (valve) stenosis; I10 Essential (primary) hypertension; E11.9 Type 2 diabetes mellitus without complications; Z79.84 Long term (current) use of oral hypoglycemic drugs; Z87.891 Personal history of nicotine dependence
CPT/HCPCS: 36415; 71045; 80053; 83690; 83735; 83880; 84484; 85025; 93005; 94640; 96374; 99284

== ENCOUNTER 2019-11-11 10:38 | Outpatient (CLI) | payer MEDICARE ==
[2019-11-11] MEDS ORDERED: IOVERSOL 320 100 ML VIAL IVP ONE ×2 (10:43→14:50)
--- NOTE | 2019-11-11 13:47 | CT Report ---
Reason: RUQ ABD PAIN, RT FLANK PAIN, HX OF PANCREATITIS Procedure Date: 11/11/2019 Accession Number: [id number] / [id number] Procedure: CT - Abdomen/Pelvis W CPT Code: Final Report FULL RESULT: EXAM: CT ABDOMEN AND PELVIS EXAM DATE: 11/11/2019 11:09 AM. CLINICAL HISTORY: Right upper quadrant abdominal pain, right flank pain, history of pancreatitis. COMPARISONS: MRI abdomen 07/28/2019. Right upper quadrant ultrasound 07/17/2019. TECHNIQUE: Routine helical CT imaging was performed through the abdomen and pelvis. IV contrast: 90 cc Optiray 320. Enteric contrast: No. Reconstructions: Coronal and sagittal. In accordance with CT protocol optimization, one or more of the following dose reduction techniques were utilized for this exam: automated exposure control, adjustment of mA and/or KV based on patient size, or use of iterative reconstructive technique. FINDINGS: Lung Bases: Mild bibasilar atelectasis or scarring. No consolidation or effusion. Normal heart size. Prominent dystrophic aortic valvular calcifications. Liver: Stable size and contour without suspicious lesion. Widely patent vasculature. Gallbladder/Bile Ducts: No calcified gallstones, gallbladder wall thickening, or dilated ducts. Spleen: Normal. Pancreas: Unremarkable, without ductal dilatation. Main pancreatic duct measures 3.2 mm in the head. No mass or peripancreatic infiltration. Adrenal Glands: No nodule. Kidneys: Variant bilateral extrarenal pelvis. Otherwise unremarkable. No hydronephrosis, mass, or abnormal parenchymal enhancement. Peritoneal Cavity/Bowel: No intestinal dilatation or focal inflammatory process identified. Appendix not seen. No free fluid, free air, or mesenteric adenopathy. Retroperitoneum: No mass or adenopathy. Pelvic Organs: No gross abnormality of the mostly contracted bladder. 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. Unremarkable ovaries. No abnormal fluid collection or pathologic adenopathy. Vasculature: No aneurysm or venous thrombosis. Bones: Mild degenerative changes of the spine. No aggressive bone destructive process identified. IMPRESSION: 1. No focal inflammatory or obstructive process identified. 2. Unremarkable pancreas and kidneys. 3. No calcified gallstones or dilated bile ducts. RADIA
== END 2019-11-11 10:39 | disposition home or self-care (01) ==
LOC: DI 10:38
PROVIDERS: ATTEND Physician Assistant Medical
DX: R10.11 Right upper quadrant pain (principal); K86.1 Other chronic pancreatitis; Z87.442 Personal history of urinary calculi
CPT/HCPCS: 74177; Q9967

== ENCOUNTER 2019-12-30 15:36 | Outpatient (CLI) | payer MEDICARE | END 2019-12-30 15:37 | disposition short-term general hospital (02) | LOC: EMS 15:36 | PROVIDERS: ATTEND Surgery | DX: R07.9 Chest pain, unspecified (principal); R06.02 Shortness of breath; R11.2 Nausea with vomiting, unspecified | CPT/HCPCS: A0425; A0427 ==

== ENCOUNTER 2020-01-29 14:58 | Outpatient (CLI) | payer MEDICARE, MEDICAID ==
[2020-01-29 15:37] LABS: HGB - HEMOGLOBIN 12.2 g/dL (12.0-16.0); MEAN CORPUSCULAR HEMOGLOBIN 29.2 pg (27.0-31.0); MEAN CORPUSCULAR HGB CONC 32.2 g/dL (32.0-36.0); MEAN CORPUSCULAR VOLUME 90.7 fL (81.0-99.0); MEAN PLATELET VOLUME 9.9 fL (7.9-10.8); RED BLOOD COUNT 4.18 10^6/uL (4.20-5.40); WHITE BLOOD COUNT 10.2 x10^3/uL (4.8-10.8)
[2020-01-29 15:48] LABS: CALCIUM 9.6 mg/dL (8.5-10.3); CREATININE 0.9 mg/dL (0.4-1.0)
--- NOTE | 2020-01-29 15:48 | XRAY Report ---
PROCEDURE: Chest 2 View X-Ray INDICATIONS: PRESENCE OF OTHER HEART-VALVE REPLACEMENT TECHNIQUE: 2 view(s) of the chest. COMPARISON: Chest x-ray 02/25/2019. FINDINGS: Surgical changes and devices: Sternal wires consistent with previous bypass procedure are noted. Lory l replacement is noted. Lungs and pleura: There is minimal blunting of the right costophrenic angle. No consolidations or pne umothorax. Mediastinum: Mediastinal contours are normal. Heart size is normal. Bones and chest wall: No suspicious bony abnormalities. Soft tissues appear unremarkable. IMPRESSION: 1. Minimal blunting of right costophrenic angle. This could represent trace fluid versus scarring. O therwise no acute pulmonary process. Reviewed by: Hetal Aguilar MD on 01/29/2020 3:47 PM PDT Approved by: Hetal Aguilar MD on 01/29/2020 3:47 PM PDT Station ID: [id number]
== END 2020-01-29 14:59 | disposition home or self-care (01) ==
LOC: DI 14:58
PROVIDERS: ATTEND Family Medicine
DX: R93.89 Abnormal findings on diagnostic imaging of other specified body structures (principal); I35.0 Nonrheumatic aortic (valve) stenosis
CPT/HCPCS: 36415; 71046; 80048; 83880; 85027

== ENCOUNTER 2020-04-22 17:33 | Emergency (ER) | payer MEDICARE, MEDICAID ==
[2020-04-22] MEDS ORDERED: IPRATROPIUM/ALBUTEROL 3 ML NEB INH STA (18:39)
--- NOTE | 2020-04-22 18:41 | ED Physician Documentation ---
PD HPI DYSPNEA - Stated complaint Stated Complaint: SOA - Chief complaint Chief Complaint: Resp - History obtained from History obtained from: Patient - Additional information Additional information: 64-year-old woman with history of CHF due to aortic stenosis status post TAVR about 4 months ago and also COPD has had shortness of breath and lightheadedness today with mild pedal edema. She has nonproductive cough. Notes that we are having a lot of wildfire smoke today. Review of Systems Constitutional: denies: Fever, Chills Cardiac: reports: Pedal edema. denies: Chest pain / pressure, Palpitations, Calf pain Respiratory: reports: Dyspnea GI: denies: Abdominal Pain, Nausea, Vomiting PD PAST MEDICAL HISTORY - Past Medical History Cardiovascular: Congestive heart failure, Hypertension, High cholesterol, Coronary artery disease, Angina, Murmur, Valve disorder Respiratory: COPD, Emphysema, Shortness of breath, Other Neuro: Headaches, Peripheral neuropathy Endocrine/Autoimmune: Type 2 diabetes GI: GERD PROCESS TRAINER: None : Incontinence HEENT: Chronic vision loss, Chronic sinusitis Psych: Depression, Anxiety, Bipolar disorder Musculoskeletal: Osteoarthritis Derm: None - Past Surgical History Past Surgical History: Yes General: 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 /PROCESS TRAINER: 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 HEENT: Tonsil/Adenoidectomy - Present Medications Home Medications: Ambulatory Orders Medication Instructions Recorded Confirmed Aspirin [Aspirin EC] 81 mg PO DAILY 02/25/19 10/24/19 Beclomethasone 40 Mcg [Qvar 40] 1 puffs INH BID 02/25/19 10/24/19 Fluticasone Propionate 1 spray NS DAILY PRN 02/25/19 10/24/19 Gabapentin 300 mg PO TID 02/25/19 10/24/19 Ipratropium/Albuterol [Duoneb] 3 ml INH BID 02/25/19 10/24/19 Montelukast [Singulair] 10 mg PO QPM 02/25/19 10/24/19 metFORMIN [Glucophage] 500 mg PO BID 02/25/19 10/24/19 Albuterol Sulf [Ventolin Hfa 2 puffs PO Q4H PRN 02/26/19 10/24/19 Inhaler] Bumetanide 1 mg PO DAILY #30 02/26/19 10/24/19 Simvastatin 10 mg PO DAILY #30 tablet 02/26/19 10/24/19 Albuterol Sulfate [Albuterol 2 puffs IH QID #1 hfa.aer.ad 10/24/19 Sulfate Hfa] Losartan Potassium 25 mg ORAL DAILY 10/24/19 10/24/19 dexAMETHasone [Decadron] 4 mg PO DAILY #5 tablet 10/24/19 Doxycycline Hyclate 100 mg PO BID #14 capsule 04/22/20 predniSONE [Deltasone] 20 mg PO [id number] #21 tab 04/22/20 - Allergies Allergies/Adverse Reactions: Allergies Allergy/AdvReac Type Severity Reaction Status Date / Time levofloxacin [From Levaquin] Allergy Hives Verified 07/17/19 16:26 - Social History Does the pt smoke?: No Smoking Status: Former smoker Does the pt drink ETOH?: Yes Does the pt have substance abuse?: No - Immunizations Immunizations are current?: Yes - POLST Patient has POLST: No POLST Status: Full Code PD ED PE NORMAL - Vitals Vital signs reviewed: Yes - General General: Alert and oriented X 3, No acute distress - HEENT HEENT: PERRL, EOMI - Neck Neck: No bony TTP - Cardiac Cardiac: RRR, Other (loud s2 click) - Respiratory Respiratory: Other (Diminished throughout with mild wheezes, nonlabored) - Abdomen Abdomen: Non tender - Extremities Extremities: Other (1+ bilateral pitting pedal edema, symmetric) - Neuro Neuro: Alert and oriented X 3, Normal speech Results - Vitals Vitals: Vital Signs - 24 hr 04/22/20 04/22/20 04/22/20 17:41 18:41 19:03 Temperature 37.0 C 36.8 C Heart Rate 75 87 77 Respiratory 20 20 16 Rate Blood Pressure 141/75 H 156/71 H O2 Saturation 95 97 Oxygen O2 Source Room air - EKG (time done) 1746 Rate: Rate (enter#) (71) Rhythm: NSR, LAE [place]: Normal Intervals: Normal [place] QRS: Normal Ischemia: Non specific changes. No: ST elevation c/w ischemia, ST depression Computer interpretation: Agree with computer - Labs Labs: Laboratory Tests 04/22/20 04/22/20 04/22/20 18:40 18:40 18:40 WBC 10.0 RBC 4.67 Hgb 13.4 Hct 41.1 MCV 88.0 MCH 28.7 MCHC 32.6 RDW 13.9 Plt Count 302 MPV 10.3 Neut # (Auto) 5.6 Lymph # (Auto) 3.4 [place] # (Auto) 0.7 Eos # (Auto) 0.3 Baso # (Auto) 0.1 Absolute Nucleated RBC 0.00 Nucleated RBC % 0.0 PT 11.7 INR 1.1 Sodium 141 Potassium 3.5 Chloride 102 Carbon Dioxide 29 Anion Gap 10.0 BUN 13 Creatinine 1.0 Estimated GFR (MDRD) 55 L Glucose 109 H Calcium 9.9 Total Bilirubin 0.3 AST 17 ALT 20 Alkaline Phosphatase 81 Troponin I High Sens B-Natriuretic Peptide Total Protein 7.3 Albumin 4.2 Globulin 3.1 Albumin/Globulin Ratio 1.4 Lipase 28 04/22/20 04/22/20 18:40 18:40 WBC RBC Hgb Hct MCV MCH MCHC RDW Plt Count MPV Neut # (Auto) Lymph # (Auto) [place] # (Auto) Eos # (Auto) Baso # (Auto) Absolute Nucleated RBC Nucleated RBC % PT INR Sodium Potassium Chloride Carbon Dioxide Anion Gap BUN Creatinine Estimated GFR (MDRD) Glucose Calcium Total Bilirubin AST ALT Alkaline Phosphatase Troponin I High Sens 5.6 B-Natriuretic Peptide 67 Total Protein Albumin Globulin Albumin/Globulin Ratio Lipase PD MEDICAL DECISION MAKING - ED course ED course: 64yo woman with history of TAVR presents with shortness of breath and some lightheadedness today. Her cardiac work-up was negative. Chest x-ray showing a nonspecific very mild interstitial pattern, given the rest of the clinical findings presume this is most likely allergic and less likely infectious. No evidence of CHF. Feeling better after a DuoNeb. She was given prednisone and doxycycline. Departure - Departure Disposition: 01 Home, Self Care Clinical Impression: Acute exacerbation of chronic obstructive pulmonary disease (COPD) Condition: Good Record reviewed to determine appropriate education?: Yes Instructions: COPD Dc Prescriptions: predniSONE [Deltasone] 20 mg PO [id number] #21 tab Doxycycline Hyclate 100 mg PO BID #14 capsule Comments: Call your doctor to arrange a follow-up appointment, make the next available appointment. In the interim, return anytime if worse or if new symptoms develop.
[2020-04-22 18:48] LABS: BASOPHILS # (AUTO) 0.1 10^3/uL (0.0-0.1); BASOPHILS % (AUTO) 0.5 %; EOSINOPHILS # (AUTO) 0.3 10^3/uL (0.0-0.7); EOSINOPHILS % (AUTO) 2.6 %; HGB - HEMOGLOBIN 13.4 g/dL (12.0-16.0); LYMPHOCYTES # (AUTO) 3.4 10^3/uL (1.5-3.5); LYMPHOCYTES % (AUTO) 34.3 %; MEAN CORPUSCULAR HEMOGLOBIN 28.7 pg (27.0-31.0); MEAN CORPUSCULAR HGB CONC 32.6 g/dL (32.0-36.0); MEAN PLATELET VOLUME 10.3 fL (7.9-10.8); MONOCYTES # (AUTO) 0.7 10^3/uL (0.0-1.0); MONOCYTES % (AUTO) 6.6 %; NEUTROPHILS # (AUTO) 5.6 10^3/uL (1.5-6.6); NEUTROPHILS % (AUTO) 55.6 %; PLT - PLATELET COUNT 302 10^3/uL (130-450); RED BLOOD COUNT 4.67 10^6/uL (4.20-5.40); RED CELL DISTRIBUTION WIDTH 13.9 % (12.0-15.0)
[2020-04-22 18:57] LABS: INR 1.1 (0.8-1.2); PT - PROTHROMBIN TIME 11.7 secs (9.9-12.6)
[2020-04-22 18:59] LABS: ALBUMIN 4.2 g/dL (3.2-5.5); ALBUMIN/GLOBULIN RATIO 1.4 (1.0-2.2); BILIRUBIN,TOTAL 0.3 mg/dL (0.2-1.0); CALCIUM 9.9 mg/dL (8.5-10.3); TOTAL PROTEIN 7.3 g/dL (6.7-8.2)
--- NOTE | 2020-04-22 19:11 | XRAY Report ---
PROCEDURE: Chest 1 View X-Ray INDICATIONS: Chest Pain TECHNIQUE: One view of the chest was acquired. COMPARISON: 01/29/2020 FINDINGS: Surgical changes and devices: Median sternotomy changes.. Lungs and pleura: No pleural effusions or pneumothorax. Lungs demonstrate diffuse thickening of the interstitial markings and slight cephalization of central vessels.. Mediastinum: Mediastinal contours appear normal. Heart size is normal. Bones and chest wall: No suspicious bony lesions. Overlying soft tissues appear unremarkable. IMPRESSION: Findings suggestive of CHF, volume overload, or an interstitial pneumonitis. Reviewed by: Lisette Brunner MD on 04/22/2020 7:09 PM PDT Approved by: Lisette Brunner MD on 04/22/2020 7:09 PM PDT Station ID: [id number]
[2020-04-22] MEDS ORDERED: predniSONE 20 MG TABLET PO STA (19:36)
[2020-04-22] MEDS ORDERED: DOXYCYCLINE 100 MG TABLET PO STA (19:36)
[2020-04-22 19:51] VITALS: BP 134/88
== END 2020-04-22 19:59 | disposition home or self-care (01) ==
LOC: ED 17:33
DX: J44.1 Chronic obstructive pulmonary disease with (acute) exacerbation (principal); R05 Cough; I50.9 Heart failure, unspecified; Z95.2 Presence of prosthetic heart valve; I11.0 Hypertensive heart disease with heart failure; E11.42 Type 2 diabetes mellitus with diabetic polyneuropathy; Z79.82 Long term (current) use of aspirin; Z79.84 Long term (current) use of oral hypoglycemic drugs; Z87.891 Personal history of nicotine dependence
CPT/HCPCS: 36415; 71045; 80053; 83690; 83880; 84484; 85025; 85610; 93005; 94640; 99284; A9270; J7512

== ENCOUNTER 2020-06-22 08:00 | Outpatient (CLI) | payer MEDICAID, MEDICARE ==
[2020-06-22 18:29] LABS: ALBUMIN 3.9 g/dL (3.2-5.5); ALBUMIN/GLOBULIN RATIO 1.4 (1.0-2.2); BILIRUBIN,TOTAL 0.6 mg/dL (0.2-1.0); CALCIUM 9.2 mg/dL (8.5-10.3); CREATININE 1.2 mg/dL (0.4-1.0); TOTAL PROTEIN 6.7 g/dL (6.7-8.2)
== END 2020-06-22 23:59 | disposition home or self-care (01) ==
LOC: LAB.WCP 08:00
PROVIDERS: ATTEND Family Medicine
DX: N18.30 Chronic kidney disease, stage 3 unspecified (principal)
CPT/HCPCS: 36415; 80053

== ENCOUNTER 2020-06-23 11:08 | Emergency (ER) | payer MEDICAID, MEDICARE ==
--- NOTE | 2020-06-23 11:44 | ED Physician Documentation ---
History of Present Illness - Stated complaint Stated Complaint: SOA - Chief complaint Chief Complaint: Resp - History obtained from History obtained from: Patient - History of Present Illness Timing: How many days ago (4) - Additonal information Additional information: 64-year-old female with a history of a TAVR approximately 5 months ago presents with worsening shortness of breath and leg swelling for the last 4 days. At baseline she does have a history of COPD, chronic kidney disease, hypertension as well as diabetes mellitus. She reports that recently her primary care provider has adjusted her Bumex in order to optimize leg swelling in the setting of kidney disease. She denies any cough or fevers. Denies chest pain. She has had no vomiting or diarrhea. She does have some mild orthopnea at night. She has been using her inhalers appropriately as well as her nebulizers without relief of shortness of air. No recent travel. Review of Systems Constitutional: denies: Fever, Chills Eyes: reports: Reviewed and negative Ears: reports: Reviewed and negative Nose: reports: Reviewed and negative Throat: reports: Reviewed and negative Cardiac: reports: Pedal edema. denies: Chest pain / pressure, Palpitations, Calf pain Respiratory: reports: Dyspnea. denies: Cough, Hemoptysis, Wheezing GI: denies: Abdominal Pain, Nausea, Vomiting, Diarrhea, Bloody / black stool : denies: Dysuria, Frequency, Hesitancy Skin: denies: Rash Musculoskeletal: denies: Neck pain Neurologic: denies: Focal weakness, Numbness, Difficulty speaking, Near syncope, Syncope, Altered mental status, Headache, LOC Psychiatric: denies: Depressed, Suicidal PD PAST MEDICAL HISTORY - Past Medical History Cardiovascular: Congestive heart failure, Hypertension, High cholesterol, Coronary artery disease, Angina, Murmur, Valve disorder Respiratory: COPD, Emphysema, Shortness of breath, Other Neuro: Headaches, Peripheral neuropathy Endocrine/Autoimmune: Type 2 diabetes GI: GERD 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 : Incontinence HEENT: Chronic vision loss, Chronic sinusitis Psych: Depression, Anxiety, Bipolar disorder Musculoskeletal: Osteoarthritis Derm: None - Past Surgical History Past Surgical History: Yes General: 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 /MEDICAL PHYSICS PROFESSOR: 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 Cardiovascular: Valve replacement HEENT: Tonsil/Adenoidectomy - Present Medications Home Medications: Ambulatory Orders Medication Instructions Recorded Confirmed Aspirin [Aspirin EC] 81 mg PO DAILY 02/25/19 10/24/19 Beclomethasone 40 Mcg [Qvar 40] 1 puffs INH BID 02/25/19 10/24/19 Fluticasone Propionate 1 spray NS DAILY PRN 02/25/19 10/24/19 Gabapentin 300 mg PO TID 02/25/19 10/24/19 Ipratropium/Albuterol [Duoneb] 3 ml INH BID 02/25/19 10/24/19 Montelukast [Singulair] 10 mg PO QPM 02/25/19 10/24/19 metFORMIN [Glucophage] 500 mg PO BID 02/25/19 10/24/19 Albuterol Sulf [Ventolin Hfa 2 puffs PO Q4H PRN 02/26/19 10/24/19 Inhaler] Bumetanide 1 mg PO DAILY #30 02/26/19 10/24/19 Simvastatin 10 mg PO DAILY #30 tablet 02/26/19 10/24/19 Albuterol Sulfate [Albuterol 2 puffs IH QID #1 hfa.aer.ad 10/24/19 Sulfate Hfa] Losartan Potassium 25 mg ORAL DAILY 10/24/19 10/24/19 dexAMETHasone [Decadron] 4 mg PO DAILY #5 tablet 10/24/19 Doxycycline Hyclate 100 mg PO BID #14 capsule 04/22/20 predniSONE [Deltasone] 20 mg PO [id number] #21 tab 04/22/20 - Allergies Allergies/Adverse Reactions: Allergies Allergy/AdvReac Type Severity Reaction Status Date / Time levofloxacin [From Levaquin] Allergy Hives Verified 06/23/20 11:13 oxycodone Allergy Itching Verified 06/23/20 11:14 - Social History Does the pt smoke?: No Smoking Status: Former smoker Does the pt drink ETOH?: Yes Does the pt have substance abuse?: No - Immunizations Immunizations are current?: Yes - POLST Patient has POLST: No POLST Status: Full Code PD ED PE EXPANDED - General General: Alert, Other (mild dyspnea. obese) - HEENT HEENT: PERRL, EOMI - Neck Neck: Supple w/out meningeal sx. No: JVD present - Cardiac Cardiac: Regular Rate, Murmur Present, Radial strong equal, Pedal strong equal, Cap refill < 2 sec - Respiratory Respiratory: Clear to ausultation shivani, Labored (mild dyspnea). No: Distress, Retractions, Wheezing - Abdomen Abdomen: Normal Bowel sounds. No: Tender to palpation - Derm Derm: Normal color, Warm and dry. No: Rash, Petecchiae, Purpura - Extremities Extremities: Normal, Pedal edema bilateral, Pedal Pulses Present. No: Right calf TTP/cord, Left calf TTP/cord - Neuro Neuro: Alert and Oriented X 3, CNII-XII intact - GCS Eye Opening: Spontaneous Motor: Obeys Commands Verbal: Oriented Total: 15 Results - Vitals Vitals: Vital Signs - 24 hr 06/23/20 11:11 Temperature 36.4 C L Heart Rate 93 Respiratory 20 Rate Blood Pressure 134/78 H O2 Saturation 98 Oxygen O2 Source Room air - EKG (time done) 1150 Rate: Rate (enter#) (87) Rhythm: NSR [place]: Normal Intervals: Normal [place] QRS: Normal Ischemia: Non specific changes Compare to prior EKG: Unchanged from prior EKG Computer interpretation: Agree with computer - Labs Labs: Laboratory Tests 06/23/20 06/23/20 06/23/20 12:20 12:20 12:20 WBC 7.1 RBC 4.31 Hgb 12.7 Hct 38.8 MCV 90.0 MCH 29.5 MCHC 32.7 RDW 13.9 Plt Count 268 MPV 10.7 Neut # (Auto) 4.5 Lymph # (Auto) 1.9 [place] # (Auto) 0.4 Eos # (Auto) 0.2 Baso # (Auto) 0.1 Absolute Nucleated RBC 0.00 Nucleated RBC % 0.0 Sodium 141 Potassium 3.3 L Chloride 100 L Carbon Dioxide 29 Anion Gap 12.0 BUN 19 Creatinine 0.9 Estimated GFR (MDRD) 63 L Glucose 127 H Calcium 9.4 Total Bilirubin 0.5 AST 17 ALT 19 Alkaline Phosphatase 77 Troponin I High Sens 5.3 B-Natriuretic Peptide Total Protein 6.6 L Albumin 4.0 Globulin 2.6 Albumin/Globulin Ratio 1.5 Lipase 29 06/23/20 12:20 WBC RBC Hgb Hct MCV MCH MCHC RDW Plt Count MPV Neut # (Auto) Lymph # (Auto) [place] # (Auto) Eos # (Auto) Baso # (Auto) Absolute Nucleated RBC Nucleated RBC % Sodium Potassium Chloride Carbon Dioxide Anion Gap BUN Creatinine Estimated GFR (MDRD) Glucose Calcium Total Bilirubin AST ALT Alkaline Phosphatase Troponin I High Sens B-Natriuretic Peptide 87 Total Protein Albumin Globulin Albumin/Globulin Ratio Lipase - Rads (name of study) cxr Radiology: Final report received (no acute cardiopulmonary process) PD MEDICAL DECISION MAKING - ED course Complexity details: reviewed results, re-evaluated patient, considered differential, d/w patient ED course: 64-year-old female presents to the emergency department with 4 days of worsening shortness of air as well as leg swelling. She does have a history of a TAVR and some chronic kidney disease. Her primary care provider has recently adjusted her Bumex dosing from 2 mg twice daily to 2 mg in the morning and 1 mg at night. Here in the emergency department she was mildly dyspneic but not hypoxic. Cardiopulmonary auscultation revealed no wheeze crackles or rails. Chest x-ray did not show any acute findings. It does not appear at this time that she is having a COPD exacerbation. Her EKG is unchanged from previous and nonischemic. High-sensitivity troponin is negative. I do note that her BN P though still normal is moderately higher than it was recently. however her BNP baseline may be falsely low given her obesity. Given that her renal function is improved from her recent visit I have advised her to resume taking her Bumex twice a day 2 mg each dose. She does have a follow-up appointment with her primary care provider in 5 to 6 days which is appropriate for reevaluation of symptoms. I do note mil hypokalemia of 3.3 today. She was given 40 mEq of potassium orally. Emergent return precautions discussed. Departure - Departure Disposition: 01 Home, Self Care Clinical Impression: Shortness of breath, Leg swelling, History of transcatheter aortic valve replacement (TAVR) Condition: Stable Record reviewed to determine appropriate education?: Yes Follow-Up: Bernadette Blackman DO [Primary Care Provider] - Comments: Shivani, you were seen today for shortness of air. As well as leg swelling. Today your chest x-ray does not show heart failure or pulmonary edema. Your kidney function is actually improved from your most recent visit and lab draws. The creatinine today is 0.9. I suspect that the worsening shortness of air and the leg swelling is because your Bumex was recently decreased. I would like you to begin taking 2 mg twice a day as you previously were. Your potassium was slightly low today therefore I have given you a one-time dose of potassium here in the emergency department. Do not miss follow-up with your primary care provider next week as already scheduled. I do recommend that you do daily weights at the same time every day. If at any point you develop chest pain, have worsening shortness of air, develop fevers or have a productive cough please return immediately to the emergency department for a second look.
--- NOTE | 2020-06-23 12:02 | XRAY Report ---
PROCEDURE: Chest 1 View X-Ray INDICATIONS: Chest Pain TECHNIQUE: One view of the chest was acquired. COMPARISON: 04/22/2020 FINDINGS: Surgical changes and devices: Median sternotomy wires are seen.. Lungs and pleura: No pleural effusions or pneumothorax. Lungs are clear. Mediastinum: Mediastinal contours appear normal. Heart size is normal. Bones and chest wall: No suspicious bony lesions. Overlying soft tissues appear unremarkable. IMPRESSION: No acute cardiopulmonary pathology. Reviewed by: Vincent Hutchins MD on 06/23/2020 11:01 AM [facility] Approved by: Vincent Hutchins MD on 06/23/2020 11:01 AM [facility] Station ID: [id number]
[2020-06-23 12:30] LABS: BASOPHILS # (AUTO) 0.1 10^3/uL (0.0-0.1); BASOPHILS % (AUTO) 0.7 %; EOSINOPHILS # (AUTO) 0.2 10^3/uL (0.0-0.7); HGB - HEMOGLOBIN 12.7 g/dL (12.0-16.0); LYMPHOCYTES # (AUTO) 1.9 10^3/uL (1.5-3.5); LYMPHOCYTES % (AUTO) 26.8 %; MEAN CORPUSCULAR HEMOGLOBIN 29.5 pg (27.0-31.0); MEAN CORPUSCULAR HGB CONC 32.7 g/dL (32.0-36.0); MEAN PLATELET VOLUME 10.7 fL (7.9-10.8); MONOCYTES # (AUTO) 0.4 10^3/uL (0.0-1.0); MONOCYTES % (AUTO) 5.4 %; NEUTROPHILS # (AUTO) 4.5 10^3/uL (1.5-6.6); NEUTROPHILS % (AUTO) 63.7 %; PLT - PLATELET COUNT 268 10^3/uL (130-450); RED BLOOD COUNT 4.31 10^6/uL (4.20-5.40); RED CELL DISTRIBUTION WIDTH 13.9 % (12.0-15.0); WHITE BLOOD COUNT 7.1 x10^3/uL (4.8-10.8)
[2020-06-23 12:42] LABS: ALBUMIN/GLOBULIN RATIO 1.5 (1.0-2.2); BILIRUBIN,TOTAL 0.5 mg/dL (0.2-1.0); CALCIUM 9.4 mg/dL (8.5-10.3); CREATININE 0.9 mg/dL (0.4-1.0); TOTAL PROTEIN 6.6 g/dL (6.7-8.2)
[2020-06-23] MEDS ORDERED: POTASSIUM CHLORIDE 20 MEQ TABLET PO STA (13:08)
[2020-06-23 13:43] VITALS: BP 101/69
== END 2020-06-23 13:53 | disposition home or self-care (01) ==
LOC: ED 11:08
DX: R06.02 Shortness of breath (principal); R60.0 Localized edema; E11.22 Type 2 diabetes mellitus with diabetic chronic kidney disease; E11.42 Type 2 diabetes mellitus with diabetic polyneuropathy; I13.10 Hypertensive heart and chronic kidney disease without heart failure, with stage 1 through stage 4 chronic kidney disease, or unspecified chronic kidney disease; N18.9 Chronic kidney disease, unspecified; Z79.84 Long term (current) use of oral hypoglycemic drugs; Z95.2 Presence of prosthetic heart valve; Z87.891 Personal history of nicotine dependence; E66.9 Obesity, unspecified; J43.9 Emphysema, unspecified
CPT/HCPCS: 36415; 71045; 80053; 83690; 83880; 84484; 85025; 93005; 99284; A9270

== ENCOUNTER 2020-06-27 19:07 | Outpatient (CLI) | payer MEDICARE | END 2020-06-27 19:08 | disposition short-term general hospital (02) | LOC: EMS 19:07 | PROVIDERS: ATTEND Surgery | DX: I49.9 Cardiac arrhythmia, unspecified (principal) | CPT/HCPCS: A0425; A0427 ==

== ENCOUNTER 2020-07-03 01:36 | Outpatient (CLI) | payer MEDICARE | END 2020-07-03 01:37 | disposition critical access hospital (66) | LOC: EMS 01:36 | PROVIDERS: ATTEND Surgery | DX: R06.02 Shortness of breath (principal) | CPT/HCPCS: A0425; A0427 ==

== ENCOUNTER 2020-07-03 01:58 | Emergency (ER) | payer MEDICARE ==
[2020-07-03 02:17] LABS: BASOPHILS # (AUTO) 0.1 10^3/uL (0.0-0.1); BASOPHILS % (AUTO) 0.7 %; EOSINOPHILS # (AUTO) 0.2 10^3/uL (0.0-0.7); EOSINOPHILS % (AUTO) 3.2 %; HGB - HEMOGLOBIN 12.6 g/dL (12.0-16.0); LYMPHOCYTES # (AUTO) 2.9 10^3/uL (1.5-3.5); LYMPHOCYTES % (AUTO) 38.9 %; MEAN CORPUSCULAR HEMOGLOBIN 29.1 pg (27.0-31.0); MEAN CORPUSCULAR HGB CONC 32.2 g/dL (32.0-36.0); MEAN CORPUSCULAR VOLUME 90.3 fL (81.0-99.0); MEAN PLATELET VOLUME 10.8 fL (7.9-10.8); MONOCYTES # (AUTO) 0.6 10^3/uL (0.0-1.0); MONOCYTES % (AUTO) 7.8 %; NEUTROPHILS # (AUTO) 3.7 10^3/uL (1.5-6.6); NEUTROPHILS % (AUTO) 49.1 %; PLT - PLATELET COUNT 269 10^3/uL (130-450); RED BLOOD COUNT 4.33 10^6/uL (4.20-5.40); RED CELL DISTRIBUTION WIDTH 14.1 % (12.0-15.0); WHITE BLOOD COUNT 7.6 x10^3/uL (4.8-10.8)
[2020-07-03] MEDS: SODIUM CHLORIDE 0.9% 1,000 ML IV STA (02:17)
[2020-07-03 02:43] LABS: ALBUMIN/GLOBULIN RATIO 1.4 (1.0-2.2); BILIRUBIN,TOTAL 0.8 mg/dL (0.2-1.0); CALCIUM 9.2 mg/dL (8.5-10.3); CREATININE 1.3 mg/dL (0.4-1.0); TOTAL PROTEIN 6.8 g/dL (6.7-8.2)
[2020-07-03] MEDS: POTASSIUM CHLORIDE 20 MEQ TABLET PO STA (02:53)
--- NOTE | 2020-07-03 03:01 | ED Physician Documentation ---
PD HPI DYSPNEA - Stated complaint Stated Complaint: SOA - Chief complaint Chief Complaint: Cardiac - History obtained from History obtained from: Patient - Additional information Additional information: Patient is brought to the emergency department by EMS after waking up and finding her heart to be racing and feelings that she was short of breath. Patient has a history of COPD and has palpitations regularly. However, she states she does not have a specific diagnosis to go along with this. Patient denies any fevers or chills. No productive cough that is worse than usual. No chest pain. No abdominal pain, nausea, or vomiting. No other complaints at this time. No swelling in her legs that is new. Review of Systems Ten Systems: 10 systems reviewed and negative Constitutional: reports: Reviewed and negative Eyes: reports: Reviewed and negative Ears: reports: Reviewed and negative Nose: reports: Reviewed and negative Throat: reports: Reviewed and negative Cardiac: reports: Reviewed and negative Respiratory: reports: Dyspnea, Cough, Reviewed and negative GI: reports: Reviewed and negative : reports: Reviewed and negative Skin: reports: Reviewed and negative Musculoskeletal: denies: Extremity swelling, Joint swelling Neurologic: reports: Reviewed and negative Psychiatric: reports: Reviewed and negative Endocrine: reports: Reviewed and negative Immunocompromised: reports: Reviewed and negative PD PAST MEDICAL HISTORY - Past Medical History Past Medical History: Yes Cardiovascular: Congestive heart failure, Hypertension, High cholesterol, Coronary artery disease, Angina, Murmur, Valve disorder Respiratory: COPD, Emphysema, Shortness of breath, Other Neuro: Headaches, Peripheral neuropathy Endocrine/Autoimmune: Type 2 diabetes GI: GERD 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 : Incontinence HEENT: Chronic vision loss, Chronic sinusitis Psych: Depression, Anxiety, Bipolar disorder Musculoskeletal: Osteoarthritis Derm: None - Past Surgical History Past Surgical History: Yes General: 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 /FIELD CLERK: 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 Cardiovascular: Valve replacement HEENT: Tonsil/Adenoidectomy - Present Medications Home Medications: Ambulatory Orders Medication Instructions Recorded Confirmed Aspirin [Aspirin EC] 81 mg PO DAILY 02/25/19 10/24/19 Beclomethasone 40 Mcg [Qvar 40] 1 puffs INH BID 02/25/19 10/24/19 Fluticasone Propionate 1 spray NS DAILY PRN 02/25/19 10/24/19 Gabapentin 300 mg PO TID 02/25/19 10/24/19 Ipratropium/Albuterol [Duoneb] 3 ml INH BID 02/25/19 10/24/19 Montelukast [Singulair] 10 mg PO QPM 02/25/19 10/24/19 metFORMIN [Glucophage] 500 mg PO BID 02/25/19 10/24/19 Albuterol Sulf [Ventolin Hfa 2 puffs PO Q4H PRN 02/26/19 10/24/19 Inhaler] Bumetanide 1 mg PO DAILY #30 02/26/19 10/24/19 Simvastatin 10 mg PO DAILY #30 tablet 02/26/19 10/24/19 Albuterol Sulfate [Albuterol 2 puffs IH QID #1 hfa.aer.ad 10/24/19 Sulfate Hfa] Losartan Potassium 25 mg ORAL DAILY 10/24/19 10/24/19 dexAMETHasone [Decadron] 4 mg PO DAILY #5 tablet 10/24/19 Doxycycline Hyclate 100 mg PO BID #14 capsule 04/22/20 predniSONE [Deltasone] 20 mg PO [id number] #21 tab 04/22/20 Potassium Chloride [K-Dur] 20 meq PO DAILY #7 tablet 07/03/20 - Allergies Allergies/Adverse Reactions: Allergies Allergy/AdvReac Type Severity Reaction Status Date / Time levofloxacin [From Levaquin] Allergy Hives Verified 06/23/20 11:13 oxycodone Allergy Itching Verified 06/23/20 11:14 - Social History Does the pt smoke?: No Smoking Status: Never smoker Does the pt drink ETOH?: Yes Does the pt have substance abuse?: No - Immunizations Immunizations are current?: Yes - POLST Patient has POLST: No POLST Status: Full Code PD ED PE NORMAL - Vitals Vital signs reviewed: Yes - General General: Alert and oriented X 3, No acute distress - HEENT HEENT: Atraumatic, PERRL, EOMI, Moist mucous membranes - Neck Neck: Supple, no meningeal sign - Cardiac Cardiac: No murmur, Strong equal pulses, Other (Normal rate, irregular rhythm.) - Respiratory Respiratory: No respiratory distress, Clear bilaterally - Abdomen Abdomen: Soft, Non tender, Non distended - Derm Derm: Normal color, Warm and dry, No rash - Extremities Extremities: No deformity, No edema, No calf tenderness / cord - Neuro Neuro: Alert and oriented X 3, cfo controller 2-12 intact, No motor deficit, No sensory deficit, Normal speech - Psych Psych: Normal mood, Normal affect Results - Vitals Vitals: Oxygen O2 Source Room air - EKG (time done) 0206 Rate: Rate (enter#) (82) Rhythm: NSR [place]: Normal Intervals: Normal [place] QRS: Normal Ischemia: Normal ST segments, Non specific changes Compare to prior EKG: Old EKG unavailable Computer interpretation: Agree with computer, Disagree with computer - Labs Labs: Laboratory Tests 07/03/20 07/03/20 07/03/20 02:10 02:10 02:10 WBC 7.6 RBC 4.33 Hgb 12.6 Hct 39.1 MCV 90.3 MCH 29.1 MCHC 32.2 RDW 14.1 Plt Count 269 MPV 10.8 Neut # (Auto) 3.7 Lymph # (Auto) 2.9 [place] # (Auto) 0.6 Eos # (Auto) 0.2 Baso # (Auto) 0.1 Absolute Nucleated RBC 0.00 Nucleated RBC % 0.0 Sodium 143 Potassium 3.3 L Chloride 105 Carbon Dioxide 27 Anion Gap 11.0 BUN 20 Creatinine 1.3 H Estimated GFR (MDRD) 41 L Glucose 139 H Calcium 9.2 Total Bilirubin 0.8 AST 24 ALT 23 Alkaline Phosphatase 89 Troponin I High Sens 9.6 B-Natriuretic Peptide Total Protein 6.8 Albumin 4.0 Globulin 2.8 Albumin/Globulin Ratio 1.4 Lipase 28 07/03/20 02:10 WBC RBC Hgb Hct MCV MCH MCHC RDW Plt Count MPV Neut # (Auto) Lymph # (Auto) [place] # (Auto) Eos # (Auto) Baso # (Auto) Absolute Nucleated RBC Nucleated RBC % Sodium Potassium Chloride Carbon Dioxide Anion Gap BUN Creatinine Estimated GFR (MDRD) Glucose Calcium Total Bilirubin AST ALT Alkaline Phosphatase Troponin I High Sens B-Natriuretic Peptide 69 Total Protein Albumin Globulin Albumin/Globulin Ratio Lipase - Rads (name of study) cxr Radiology: Final report received, EMP read indepedently, See rad report (neg) PD MEDICAL DECISION MAKING - ED course Complexity details: reviewed old records, reviewed results, re-evaluated patient, considered differential, d/w patient ED course: Patient was found to have PACs on the monitor, though EKG was unremarkable for ectopy, and showed NSR. The remainder of her work-up, including labs, was negative. We have discussed that the PACs are to be expected with her COPD. The patient is been treated with IV fluids here and was able to ambulate to and from the bathroom without difficulty, though she did report feeling as though her PACs were kicking up again after ambulating. However, she was found to still be in normal sinus rhythm on the monitor with patient all PACs, as she had been before. We discussed the need for follow-up and the usual indications for return. No emergent condition has been identified tonight. Departure - Departure Disposition: Home, Self Care Clinical Impression: Heart palpitations, Hypokalemia Dyspnea Qualifiers: Dyspnea type: shortness of breath Qualified Code(s): R06.02 - Shortness of breath Condition: Stable Instructions: ED Potassium Deficiency Prescriptions: Potassium Chloride [K-Dur] 20 meq PO DAILY #7 tablet Comments: Overall, your tests look good, but you were found to have a mildly decreased potassium. Sometimes, this can make a person more prone to irregular heart rhythms. You have been given a dose of potassium today, but we will put you also on a low daily dose of potassium for 1 week. You will need to follow-up with your primary care physician after this to get your potassium levels rechecked. Please continue to drink plenty of water and please call your doctor's office first thing on Saturday morning to set up a follow-up appointment. Discharge Date/Time: 07/03/20 03:46
[2020-07-03 03:41] VITALS: BP 97/77
--- NOTE | 2020-07-03 09:57 | XRAY Report ---
PROCEDURE: Chest 1 View X-Ray INDICATIONS: Chest Pain TECHNIQUE: One view of the chest was acquired. COMPARISON: 01/29/2020, 04/22/2020, 06/23/2020 FINDINGS: Surgical changes and devices: Sternotomy changes are noted. Lungs and pleura: No pleural effusion s or pneumothorax. Lungs are clear. Mediastinum: Mediastinal contours appear normal. Heart size is at the upper limits of normal. Bones and chest wall: No suspicious bony lesions. Age-appropriate degenerative changes are seen. Overlying soft tissues appear unremarkable. IMPRESSION: Clear lungs. Heart size is at the limits of normal. Postoperative and degenerative changes are seen. Note: No significant discrepancy from the preliminary report. Reviewed by: Samy Marie MD on 07/03/2020 8:55 AM [place] Approved by: Samy Marie MD on 07/03/2020 8:55 AM [facility] Station ID: [id number]
== END 2020-07-03 03:46 | disposition home or self-care (01) ==
LOC: EDUNIT# → ED 01:58
DX: R00.2 Palpitations (principal); E87.6 Hypokalemia; J43.9 Emphysema, unspecified; I11.0 Hypertensive heart disease with heart failure; I50.9 Heart failure, unspecified; E11.42 Type 2 diabetes mellitus with diabetic polyneuropathy; Z79.84 Long term (current) use of oral hypoglycemic drugs; Z95.2 Presence of prosthetic heart valve
CPT/HCPCS: 36415; 71045; 80053; 83690; 83880; 84484; 85025; 93005; 96360; 99283; 99284; A9270

== ENCOUNTER 2020-07-08 15:58 | Emergency (ER) | payer MEDICARE ==
[2020-07-08] MEDS ORDERED: methylPREDNISolone SUCCINATE 125 MG/2 ML VIAL IVP STA (16:11)
[2020-07-08] MEDS ORDERED: BUMETANIDE 1 MG/4 ML VIAL IVP STA (16:11)
--- NOTE | 2020-07-08 16:13 | ED Physician Documentation ---
PD HPI DYSPNEA - Stated complaint Stated Complaint: SOA - Chief complaint Chief Complaint: Resp - History obtained from History obtained from: Patient - Additional information Additional information: 64-year-old woman with history of aortic valve replacement, bovine, done about 6 months ago, she says she had a unremarkable echocardiogram done with her leak patcher about a month and a half ago. She also has COPD and pulmonary hypersensitivity and frequent palpitations. She has been having trouble lately because she moved into a new apartment that has a heavy smell of cigarette smoke. They had a ioniser /purifier which stopped working and then her breathing got worse. She is also had increasing rapid palpitations, she was seen for this the other night and had symptomatic PACs. She notes increasing pedal edema despite taking Bumex. 4 pound weight gain. Review of Systems Ten Systems: 10 systems reviewed and negative Constitutional: denies: Fever, Chills Eyes: reports: Reviewed and negative Cardiac: denies: Calf pain Respiratory: denies: Hemoptysis PD PAST MEDICAL HISTORY - Past Medical History Cardiovascular: Congestive heart failure, Hypertension, High cholesterol, Coronary artery disease, Angina, Murmur, Valve disorder Respiratory: COPD, Emphysema, Shortness of breath, Other Neuro: Headaches, Peripheral neuropathy Endocrine/Autoimmune: Type 2 diabetes GI: GERD COST ACCOUNTANT: None : Incontinence HEENT: Chronic vision loss, Chronic sinusitis Psych: Depression, Anxiety, Bipolar disorder Musculoskeletal: Osteoarthritis Derm: None - Past Surgical History Past Surgical History: Yes General: 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 /COST ACCOUNTANT: 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 Cardiovascular: Valve replacement HEENT: Tonsil/Adenoidectomy - Present Medications Home Medications: Ambulatory Orders Medication Instructions Recorded Confirmed Aspirin [Aspirin EC] 81 mg PO DAILY 02/25/19 10/24/19 Beclomethasone 40 Mcg [Qvar 40] 1 puffs INH BID 02/25/19 10/24/19 Fluticasone Propionate 1 spray NS DAILY PRN 02/25/19 10/24/19 Gabapentin 300 mg PO TID 02/25/19 10/24/19 Ipratropium/Albuterol [Duoneb] 3 ml INH BID 02/25/19 10/24/19 Montelukast [Singulair] 10 mg PO QPM 02/25/19 10/24/19 metFORMIN [Glucophage] 500 mg PO BID 02/25/19 10/24/19 Albuterol Sulf [Ventolin Hfa 2 puffs PO Q4H PRN 02/26/19 10/24/19 Inhaler] Bumetanide 1 mg PO DAILY #30 02/26/19 10/24/19 Simvastatin 10 mg PO DAILY #30 tablet 02/26/19 10/24/19 Albuterol Sulfate [Albuterol 2 puffs IH QID #1 hfa.aer.ad 10/24/19 Sulfate Hfa] Losartan Potassium 25 mg ORAL DAILY 10/24/19 10/24/19 dexAMETHasone [Decadron] 4 mg PO DAILY #5 tablet 10/24/19 Doxycycline Hyclate 100 mg PO BID #14 capsule 04/22/20 predniSONE [Deltasone] 20 mg PO [id number] #21 tab 04/22/20 Potassium Chloride [K-Dur] 20 meq PO DAILY #7 tablet 07/03/20 predniSONE [Deltasone] 20 mg PO [id number] #21 tab 07/08/20 - Allergies Allergies/Adverse Reactions: Allergies Allergy/AdvReac Type Severity Reaction Status Date / Time levofloxacin [From Levaquin] Allergy Hives Verified 07/08/20 16:00 oxycodone Allergy Itching Verified 07/08/20 16:00 - Social History Does the pt smoke?: No Smoking Status: Never smoker Does the pt drink ETOH?: Yes Does the pt have substance abuse?: No - Immunizations Immunizations are current?: Yes - POLST Patient has POLST: No POLST Status: Full Code PD ED PE NORMAL - Vitals Vital signs reviewed: Yes - General General: Alert and oriented X 3, No acute distress - HEENT HEENT: PERRL, EOMI - Neck Neck: Supple, no meningeal sign, No bony TTP - Cardiac Cardiac: RRR, Other (Mild systolic ejection murmur) - Respiratory Respiratory: No respiratory distress, Other (Expiratory wheezes throughout, nonlabored) - Abdomen Abdomen: Non tender - Back Back: No CVA TTP, No spinal TTP - Derm Derm: Normal color, Warm and dry - Extremities Extremities: No calf tenderness / cord, Other (She has 1-2+ pitting edema around the ankles, symmetric without tenderness.) - Neuro Neuro: Alert and oriented X 3, Normal speech Results - Vitals Vitals: Vital Signs - 24 hr 07/08/20 07/08/20 07/08/20 16:00 16:49 17:09 Temperature 36.5 C 36.8 C Heart Rate 92 80 76 Respiratory 18 16 18 Rate Blood Pressure 153/87 H 110/59 L 101/49 L O2 Saturation 97 100 100 07/08/20 18:00 Temperature 36.7 C Heart Rate 76 Respiratory 18 Rate Blood Pressure 116/78 O2 Saturation 100 Oxygen O2 Source Room air - EKG (time done) 1610 Rate: Rate (enter#) (88) Rhythm: NSR, LAE [place]: Normal Intervals: Normal [place], Prolonged QT Ischemia: Non specific changes. No: ST elevation c/w ischemia, ST depression Computer interpretation: Agree with computer - Labs Labs: Laboratory Tests 07/08/20 07/08/20 07/08/20 16:30 16:30 16:30 WBC 8.6 RBC 4.55 Hgb 13.3 Hct 40.6 MCV 89.2 MCH 29.2 MCHC 32.8 RDW 13.5 Plt Count 318 MPV 10.7 Neut # (Auto) 5.2 Lymph # (Auto) 2.7 [place] # (Auto) 0.5 Eos # (Auto) 0.2 Baso # (Auto) 0.1 Absolute Nucleated RBC 0.00 Nucleated RBC % 0.0 D-Dimer 209.2 Sodium 141 Potassium 3.4 L Chloride 101 Carbon Dioxide 29 Anion Gap 11.0 BUN 15 Creatinine 1.0 Estimated GFR (MDRD) 55 L Glucose 96 Calcium 9.9 Total Bilirubin 0.5 AST 23 ALT 27 Alkaline Phosphatase 91 Troponin I High Sens Total Protein 7.5 Albumin 4.4 Globulin 3.1 Albumin/Globulin Ratio 1.4 Lipase 30 07/08/20 16:30 WBC RBC Hgb Hct MCV MCH MCHC RDW Plt Count MPV Neut # (Auto) Lymph # (Auto) [place] # (Auto) Eos # (Auto) Baso # (Auto) Absolute Nucleated RBC Nucleated RBC % D-Dimer Sodium Potassium Chloride Carbon Dioxide Anion Gap BUN Creatinine Estimated GFR (MDRD) Glucose Calcium Total Bilirubin AST ALT Alkaline Phosphatase Troponin I High Sens 4.6 Total Protein Albumin Globulin Albumin/Globulin Ratio Lipase - Rads (name of study) 1v chest Radiology: EMP read contemporaneously (NAD) PD MEDICAL DECISION MAKING - ED course ED course: 64-year-old woman with wheezing and shortness of breath, some pedal edema but no biochemical evidence of ACS, DVT/PE or heart failure. Seems like a hypersensitivity issue, she is given IV Bumex and Solu-Medrol here And this should help. Chest x-ray interpreted contemporaneously by me is clear without evidence of heart failure or other acute abnormality. Departure - Departure Disposition: Home, Self Care Clinical Impression: Dyspnea Qualifiers: Dyspnea type: dyspnea on exertion Qualified Code(s): R06.00 - Dyspnea, unspecified Condition: Good Record reviewed to determine appropriate education?: Yes Instructions: ED Dyspnea Shortness of Breath Prescriptions: predniSONE [Deltasone] 20 mg PO [id number] #21 tab Comments: As discussed, with the wheezing it seems likely that the bulk of the problems are due to hypersensitivity, return if worsening but I think the steroid taper and the shot of Bumex you were given today should be helpful. Continue other routine medications. Return if worse. Follow-up with your primary care physician regardless. Discharge Date/Time: 07/08/20 18:05
--- NOTE | 2020-07-08 16:24 | XRAY Report ---
PROCEDURE: Chest 1 View X-Ray INDICATIONS: Chest pain TECHNIQUE: One view of the chest was acquired. COMPARISON: 07/03/2020. FINDINGS: Surgical changes and devices: Median sternotomy changes. Lungs and pleura: No pleural effusions or pneumothorax. Lungs are clear. Mediastinum: Mediastinal contours appear normal. Heart size is normal. Bones and chest wall: No suspicious bony lesions. Overlying soft tissues appear unremarkable. IMPRESSION: No acute finding or significant change from previous exam. Reviewed by: Prasanna Lynn MD on 07/08/2020 4:23 PM PST Approved by: Prasanna Lynn MD on 07/08/2020 4:23 PM PST Station ID: [id number]
[2020-07-08 16:41] LABS: BASOPHILS # (AUTO) 0.1 10^3/uL (0.0-0.1); BASOPHILS % (AUTO) 0.7 %; EOSINOPHILS # (AUTO) 0.2 10^3/uL (0.0-0.7); HGB - HEMOGLOBIN 13.3 g/dL (12.0-16.0); LYMPHOCYTES # (AUTO) 2.7 10^3/uL (1.5-3.5); LYMPHOCYTES % (AUTO) 31.1 %; MEAN CORPUSCULAR HEMOGLOBIN 29.2 pg (27.0-31.0); MEAN CORPUSCULAR HGB CONC 32.8 g/dL (32.0-36.0); MEAN CORPUSCULAR VOLUME 89.2 fL (81.0-99.0); MEAN PLATELET VOLUME 10.7 fL (7.9-10.8); MONOCYTES # (AUTO) 0.5 10^3/uL (0.0-1.0); MONOCYTES % (AUTO) 5.7 %; NEUTROPHILS # (AUTO) 5.2 10^3/uL (1.5-6.6); NEUTROPHILS % (AUTO) 60.3 %; PLT - PLATELET COUNT 318 10^3/uL (130-450); RED BLOOD COUNT 4.55 10^6/uL (4.20-5.40); RED CELL DISTRIBUTION WIDTH 13.5 % (12.0-15.0); WHITE BLOOD COUNT 8.6 x10^3/uL (4.8-10.8)
[2020-07-08 16:57] LABS: ALBUMIN 4.4 g/dL (3.2-5.5); ALBUMIN/GLOBULIN RATIO 1.4 (1.0-2.2); BILIRUBIN,TOTAL 0.5 mg/dL (0.2-1.0); CALCIUM 9.9 mg/dL (8.5-10.3); TOTAL PROTEIN 7.5 g/dL (6.7-8.2)
[2020-07-08 18:01] VITALS: BP 116/78
== END 2020-07-08 18:05 | disposition home or self-care (01) ==
LOC: ED 15:58
DX: T78.49XA Other allergy, initial encounter (principal); X58.XXXA Exposure to other specified factors, initial encounter; Z77.22 Contact with and (suspected) exposure to environmental tobacco smoke (acute) (chronic); R60.0 Localized edema; J43.9 Emphysema, unspecified; I45.81 Long QT syndrome; Z95.2 Presence of prosthetic heart valve; I25.10 Atherosclerotic heart disease of native coronary artery without angina pectoris; I10 Essential (primary) hypertension; E11.42 Type 2 diabetes mellitus with diabetic polyneuropathy; Z79.84 Long term (current) use of oral hypoglycemic drugs; Z79.82 Long term (current) use of aspirin
CPT/HCPCS: 36415; 71045; 80053; 83690; 84484; 85025; 85379; 93005; 96374; 96375; 99285

== ENCOUNTER 2020-08-13 19:41 | Outpatient (CLI) | payer MEDICARE, MEDICAID | END 2020-08-13 19:42 | disposition critical access hospital (66) | LOC: EMS 19:41 | PROVIDERS: ATTEND Surgery | DX: R06.00 Dyspnea, unspecified (principal) | CPT/HCPCS: A0425; A0427 ==

== ENCOUNTER 2020-08-13 20:02 | Emergency (ER) | payer MEDICARE, MEDICAID ==
[2020-08-13] MEDS ORDERED: IPRATROPIUM/ALBUTEROL 3 ML NEB INH STA (20:14)
[2020-08-13] MEDS ORDERED: methylPREDNISolone SUCCINATE 125 MG/2 ML VIAL IVP STA (20:14)
--- NOTE | 2020-08-13 20:16 | ED Physician Documentation ---
PD HPI DYSPNEA - Stated complaint Stated Complaint: DIFF. BREATHING - Chief complaint Chief Complaint: Resp - History obtained from History obtained from: Patient, EMS - Additional information Additional information: 64-year-old woman who had a bovine [place]. She also has a history of COPD and pulmonary hypersensitivity. She feels like over the last couple of days and especially since yesterday she has developed some bruising type pain in the anterior chest which is nonradiating associated with increased shortness of breath like she has having trouble getting air in. She notes stable weight but does have pedal edema. Review of Systems Constitutional: denies: Fever, Chills Nose: denies: Rhinorrhea / runny nose Cardiac: reports: Chest pain / pressure, Pedal edema. denies: Palpitations, Calf pain Respiratory: reports: Dyspnea. 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: None : Incontinence HEENT: Chronic vision loss, Chronic sinusitis Psych: Depression, Anxiety, Bipolar disorder Musculoskeletal: Osteoarthritis Derm: None - Past Surgical History Past Surgical History: Yes General: 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 /PSYCHIATRIC MENTAL HEALTH NURSE: 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 Cardiovascular: Valve replacement HEENT: Tonsil/Adenoidectomy - Present Medications Home Medications: Ambulatory Orders Medication Instructions Recorded Confirmed Aspirin [Aspirin EC] 81 mg PO DAILY 02/25/19 08/13/20 Gabapentin 300 mg PO TID 02/25/19 08/13/20 Ipratropium/Albuterol [Duoneb] 3 ml INH BID 02/25/19 08/13/20 Montelukast [Singulair] 10 mg PO QPM 02/25/19 08/13/20 metFORMIN [Glucophage] 500 mg PO BID 02/25/19 08/13/20 Albuterol Sulf [Ventolin Hfa 2 puffs PO Q4H PRN 02/26/19 08/13/20 Inhaler] Bumetanide 1 mg PO DAILY #30 02/26/19 08/13/20 Simvastatin 10 mg PO DAILY #30 tablet 02/26/19 08/13/20 Potassium Chloride [K-Dur] 20 meq PO DAILY #7 tablet 07/03/20 08/13/20 Bumetanide [Bumex] 2 tab PO DAILY #20 tablet 08/13/20 Fluticasone/Umeclidin/Vilanter 2 puffs IH Q4HR PRN 08/13/20 08/13/20 [Trelegy Ellipta 200-62.5-25] predniSONE [Deltasone] 20 mg PO [id number] #21 tab 08/13/20 - Allergies Allergies/Adverse Reactions: Allergies Allergy/AdvReac Type Severity Reaction Status Date / Time levofloxacin [From Levaquin] Allergy Hives Verified 07/08/20 16:00 oxycodone Allergy Itching Verified 07/08/20 16:00 - Social History Does the pt smoke?: No Smoking Status: Former smoker Does the pt drink ETOH?: Yes Does the pt have substance abuse?: No - Immunizations Immunizations are current?: Yes - POLST Patient has POLST: No POLST Status: Full Code PD ED PE NORMAL - Vitals Vital signs reviewed: Yes - General General: Alert and oriented X 3, No acute distress - HEENT HEENT: PERRL, EOMI - Neck Neck: Supple, no meningeal sign, No bony TTP - Cardiac Cardiac: RRR, No murmur - Respiratory Respiratory: No respiratory distress, Other (Mildly diminished with expiratory wheezing, nonlabored.) - Abdomen Abdomen: Non tender - Back Back: No CVA TTP, No spinal TTP - Derm Derm: Normal color, Warm and dry - Extremities Extremities: No calf tenderness / cord, Other (2+ pitting pedal edema bilaterally, symmetric) - Neuro Neuro: Alert and oriented X 3, Normal speech Results - Vitals Vitals: Vital Signs - 24 hr 08/13/20 08/13/20 08/13/20 20:10 20:53 21:18 Temperature 37.6 C Heart Rate 90 84 82 Respiratory 20 20 17 Rate Blood Pressure 154/76 H 136/96 H 129/89 H O2 Saturation 97 96 97 08/13/20 08/13/20 21:24 21:36 Temperature 36.1 C L Heart Rate 83 81 Respiratory 18 15 Rate Blood Pressure 149/74 H O2 Saturation 100 Oxygen O2 Source Room air - EKG (time done) 2011 Rate: Rate (enter#) (85) Rhythm: NSR, LAE [place]: Normal Ischemia: Q waves (anterior), Non specific changes. No: ST elevation c/w ischemia, ST depression Compare to prior EKG: Unchanged from prior EKG Computer interpretation: Agree with computer - Labs Labs: Laboratory Tests 08/13/20 08/13/20 08/13/20 20:24 20:24 20:24 WBC 9.5 RBC 4.58 Hgb 13.4 Hct 41.7 MCV 91.0 MCH 29.3 MCHC 32.1 RDW 12.9 Plt Count 317 MPV 10.1 Neut # (Auto) 6.2 Lymph # (Auto) 2.6 [place] # (Auto) 0.4 Eos # (Auto) 0.1 Baso # (Auto) 0.1 Absolute Nucleated RBC 0.00 Nucleated RBC % 0.0 Sodium 145 Potassium 4.1 Chloride 99 L Carbon Dioxide 30 Anion Gap 16.0 H BUN 13 Creatinine 1.2 H Estimated GFR (MDRD) 45 L Glucose 115 H Calcium 9.7 Total Bilirubin 0.3 AST 18 ALT 21 Alkaline Phosphatase 97 Troponin I High Sens 4.1 B-Natriuretic Peptide Total Protein 7.1 Albumin 4.1 Globulin 3.0 Albumin/Globulin Ratio 1.4 08/13/20 20:24 WBC RBC Hgb Hct MCV MCH MCHC RDW Plt Count MPV Neut # (Auto) Lymph # (Auto) [place] # (Auto) Eos # (Auto) Baso # (Auto) Absolute Nucleated RBC Nucleated RBC % Sodium Potassium Chloride Carbon Dioxide Anion Gap BUN Creatinine Estimated GFR (MDRD) Glucose Calcium Total Bilirubin AST ALT Alkaline Phosphatase Troponin I High Sens B-Natriuretic Peptide 81 Total Protein Albumin Globulin Albumin/Globulin Ratio PD MEDICAL DECISION MAKING - ED course ED course: This is a 64-year-old former smoker with COPD who presents with shortness of breath. She is wheezing and slightly tight and felt better after a DuoNeb and Solu-Medrol here. She had a CAT scan ordered by her physician and it seemed brewster to just get it done tonight. No pulmonary embolism. The she does have some emphysema and atelectasis. No other acute findings. Departure - Departure Disposition: 01 Home, Self Care Clinical Impression: Acute exacerbation of chronic obstructive pulmonary disease (COPD) Condition: Stable Record reviewed to determine appropriate education?: Yes Instructions: COPD Dc Prescriptions: Bumetanide [Bumex] 2 tab PO DAILY #20 tablet predniSONE [Deltasone] 20 mg PO [id number] #21 tab Comments: As discussed, your labs and CAT scan look pretty good. You can take a little extra Bumex in the morning, you can take 4 mg total in the morning for the next few days to get some of the extra water off. There is no evidence of blood clots. The prior pulmonary nodule that your doctor noted is not present on today's CT scan. Return if worsening. Follow-up with your primary care physician.
[2020-08-13 20:34] LABS: BASOPHILS # (AUTO) 0.1 10^3/uL (0.0-0.1); BASOPHILS % (AUTO) 0.5 %; EOSINOPHILS # (AUTO) 0.1 10^3/uL (0.0-0.7); EOSINOPHILS % (AUTO) 1.5 %; HGB - HEMOGLOBIN 13.4 g/dL (12.0-16.0); LYMPHOCYTES # (AUTO) 2.6 10^3/uL (1.5-3.5); LYMPHOCYTES % (AUTO) 27.5 %; MEAN CORPUSCULAR HEMOGLOBIN 29.3 pg (27.0-31.0); MEAN CORPUSCULAR HGB CONC 32.1 g/dL (32.0-36.0); MEAN PLATELET VOLUME 10.1 fL (7.9-10.8); MONOCYTES # (AUTO) 0.4 10^3/uL (0.0-1.0); MONOCYTES % (AUTO) 4.4 %; NEUTROPHILS # (AUTO) 6.2 10^3/uL (1.5-6.6); NEUTROPHILS % (AUTO) 65.7 %; PLT - PLATELET COUNT 317 10^3/uL (130-450); RED BLOOD COUNT 4.58 10^6/uL (4.20-5.40); RED CELL DISTRIBUTION WIDTH 12.9 % (12.0-15.0); WHITE BLOOD COUNT 9.5 x10^3/uL (4.8-10.8)
[2020-08-13] MEDS ORDERED: IOVERSOL 320 100 ML VIAL IVP ONE ×2 (20:34→21:45)
[2020-08-13 20:47] LABS: ALBUMIN 4.1 g/dL (3.2-5.5); ALBUMIN/GLOBULIN RATIO 1.4 (1.0-2.2); BILIRUBIN,TOTAL 0.3 mg/dL (0.2-1.0); CALCIUM 9.7 mg/dL (8.5-10.3); CREATININE 1.2 mg/dL (0.4-1.0); TOTAL PROTEIN 7.1 g/dL (6.7-8.2)
[2020-08-13] MEDS ORDERED: IPRATROPIUM/ALBUTEROL 3 ML NEB INH ONE (21:35)
--- NOTE | 2020-08-13 21:54 | CT Report ---
PROCEDURE: ANGIO CHEST W/WO INDICATIONS: chest pain/dyspnea CONTRAST: IV CONTRAST: Optiray 320 ml: 80 PO CONTRAST: *NO PO CONTRAST TECHNIQUE: After the administration of intravenous contrast, 2 mm thick sections acquired from the pulmonary api luisito to the posterior costophrenic angles. 3-dimensional maximum intensity projection (MIP) coronal a nd sagittal reformats were then acquired through the thorax. For radiation dose reduction, the follow ing was used: automated exposure control, adjustment of mA and/or kV according to patient size. COMPARISON: Chest radiograph dated 07/08/2020 FINDINGS: Image quality: Excellent. Pulmonary arteries: Pulmonary arteries are normal in size, and demonstrate no intraluminal filling d efects to suggest central pulmonary embolism. Lungs and pleura: There is mild centrilobular emphysema. Scattered atelectasis in periphery of bilate ral mid to lower lung perez are seen. No pleural effusions or pneumothorax. Central and peripheral airways are patent. Mediastinum: Mediastinal wires and surgical clips are seen. Prosthetic aortic valve is also noted. H eart size is normal, without pericardial effusion. No mediastinal or hilar adenopathy. Thoracic aor ta is normal in caliber and enhancement. Esophagus is normal in caliber, without hiatal hernia. Bones and chest wall: No suspicious bony lesions. Ribs and thoracic spine appear intact throughout. The thyroid is normal. No axillary or supraclavicular adenopathy. Abdomen: Visualized upper abdominal solid organs appear normal in the early arterial phase of enhanc ement. IMPRESSION: 1. No evidence of pulmonary emboli. No thoracic aortic aneurysm. 2. Mild centrilobular emphysema. Scattered atelectasis in periphery of bilateral mid to lower lung fi elds. No focal infiltrate, pleural effusion or pneumothorax. Airway is patent. 3. Prior cardiac surgery and prosthetic valve placement. No mediastinal or hilar lymphadenopathy. Reviewed by: Vincent Hutchins MD on 08/13/2020 9:53 PM PST Approved by: Vincent Hutchins MD on 08/13/2020 9:53 PM PST Station ID: [id number]
[2020-08-13 22:17] VITALS: BP 150/82
== END 2020-08-13 22:17 | disposition home or self-care (01) ==
LOC: EDUNIT# → ED 20:02
DX: J43.2 Centrilobular emphysema (principal); J98.11 Atelectasis; Z87.891 Personal history of nicotine dependence; I11.0 Hypertensive heart disease with heart failure; I50.9 Heart failure, unspecified; Z95.2 Presence of prosthetic heart valve; Z79.82 Long term (current) use of aspirin; E11.42 Type 2 diabetes mellitus with diabetic polyneuropathy; Z79.84 Long term (current) use of oral hypoglycemic drugs
CPT/HCPCS: 71275; 80053; 83880; 84484; 85025; 93005; 94640; 96374; 99284; Q9967

== ENCOUNTER 2020-08-22 11:49 | Outpatient (CLI) | payer MEDICARE, MEDICAID | END 2020-08-22 11:50 | disposition critical access hospital (66) | LOC: EMS 11:49 | PROVIDERS: ATTEND Surgery | DX: R06.00 Dyspnea, unspecified (principal) | CPT/HCPCS: A0425; A0427 ==

== ENCOUNTER 2020-08-22 12:08 | Emergency (ER) | payer MEDICARE, MEDICAID ==
--- NOTE | 2020-08-22 13:13 | XRAY Report ---
PROCEDURE: Chest 1 View X-Ray INDICATIONS: dyspnea TECHNIQUE: One view of the chest was acquired. COMPARISON: Prior chest plain film 07/08/2020 FINDINGS: Surgical changes and devices: Sternotomy wires, presumed prior CABG.. Lungs and pleura: No pleural effusions or pneumothorax. Lungs are clear except for a mild degree of interstitial prominence.. Mediastinum: Mediastinal contours appear normal. Heart size is normal. Bones and chest wall: No suspicious bony lesions. Overlying soft tissues appear unremarkable. IMPRESSION: Mild interstitial prominence, prior CABG. Possible prior smoking history. No definite acute disease i s found. Reviewed by: Chucho Quiñones MD on 08/22/2020 1:11 PM PST Approved by: Chucho Quiñones MD on 08/22/2020 1:11 PM PST Station ID: [id number]
[2020-08-22 13:14] LABS: BASOPHILS % (AUTO) 0.3 %; EOSINOPHILS % (AUTO) 0.3 %; HGB - HEMOGLOBIN 13.7 g/dL (12.0-16.0); LYMPHOCYTES # (AUTO) 1.7 10^3/uL (1.5-3.5); LYMPHOCYTES % (AUTO) 15.1 %; MEAN CORPUSCULAR HEMOGLOBIN 29.6 pg (27.0-31.0); MEAN CORPUSCULAR HGB CONC 32.5 g/dL (32.0-36.0); MEAN CORPUSCULAR VOLUME 90.9 fL (81.0-99.0); MEAN PLATELET VOLUME 10.4 fL (7.9-10.8); MONOCYTES # (AUTO) 0.3 10^3/uL (0.0-1.0); MONOCYTES % (AUTO) 2.5 %; NEUTROPHILS # (AUTO) 9.1 10^3/uL (1.5-6.6); NEUTROPHILS % (AUTO) 80.9 %; PLT - PLATELET COUNT 309 10^3/uL (130-450); RED BLOOD COUNT 4.63 10^6/uL (4.20-5.40); RED CELL DISTRIBUTION WIDTH 13.2 % (12.0-15.0); WHITE BLOOD COUNT 11.3 x10^3/uL (4.8-10.8)
[2020-08-22 13:27] LABS: ALBUMIN 3.9 g/dL (3.2-5.5); ALBUMIN/GLOBULIN RATIO 1.3 (1.0-2.2); BILIRUBIN,TOTAL 0.6 mg/dL (0.2-1.0); CALCIUM 9.6 mg/dL (8.5-10.3); CREATININE 1.1 mg/dL (0.4-1.0); TOTAL PROTEIN 6.8 g/dL (6.7-8.2)
--- NOTE | 2020-08-22 14:17 | ED Physician Documentation ---
History of Present Illness - Stated complaint Stated Complaint: SOA - Chief complaint Chief Complaint: Resp - History obtained from History obtained from: Patient - History of Present Illness Timing: Chronic Pain level max: 0 Pain level now: 0 - Additonal information Additional information: 64-year-old female presents to the emergency department for increased difficulty breathing over the past week or so. Has a history of CHF and COPD. Given a DuoNeb treatment with EMS. Currently feeling better. Has an appointment with her traffic enumerator next week. No fevers. No chills. No cough. She states that she had mild increased swelling in her legs and increased her diuretics recently. 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 OUT CLERK: None : Incontinence HEENT: Chronic vision loss, Chronic sinusitis Psych: Depression, Anxiety, Bipolar disorder Musculoskeletal: Osteoarthritis Derm: None - Past Surgical History Past Surgical History: Yes General: 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 /THROW OUT CLERK: 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 Cardiovascular: Valve replacement HEENT: Tonsil/Adenoidectomy - Present Medications Home Medications: Ambulatory Orders Medication Instructions Recorded Confirmed Aspirin [Aspirin EC] 81 mg PO DAILY 02/25/19 08/22/20 Gabapentin 300 mg PO TID PRN 02/25/19 08/22/20 Ipratropium/Albuterol [Duoneb] 3 ml INH BID 02/25/19 08/22/20 Montelukast [Singulair] 10 mg PO QPM 02/25/19 08/22/20 metFORMIN [Glucophage] 500 mg PO BID 02/25/19 08/22/20 Albuterol Sulf [Ventolin Hfa 2 puffs PO Q4H PRN 02/26/19 08/22/20 Inhaler] Simvastatin 10 mg PO DAILY #30 tablet 02/26/19 08/22/20 Bumetanide [Bumex] 2 tab PO DAILY #20 tablet 08/13/20 08/22/20 Fluticasone/Umeclidin/Vilanter 2 puffs IH Q4HR PRN 08/13/20 08/22/20 [Trelegy Ellipta 200-62.5-25] predniSONE [Deltasone] 20 mg PO [id number] #21 tab 08/13/20 08/22/20 Albuterol Sulf [Ventolin Hfa 1 - 2 puffs INH Q4HR PRN #1 inhaler 08/22/20 Inhaler] Bumetanide 1 mg PO DAILY 08/22/20 08/22/20 Metoprolol Tartrate [Lopressor] 12.5 mg PO BID 08/22/20 08/22/20 predniSONE [Deltasone] 10 mg PO [id number] #42 tab 08/22/20 - Allergies Allergies/Adverse Reactions: Allergies Allergy/AdvReac Type Severity Reaction Status Date / Time levofloxacin [From Levaquin] Allergy Hives Verified 08/22/20 12:36 oxycodone Allergy Itching Verified 08/22/20 12:36 - Social History Does the pt smoke?: No Smoking Status: Never smoker Does the pt drink ETOH?: Yes Does the pt have substance abuse?: No - Immunizations Immunizations are current?: Yes - POLST Patient has POLST: No POLST Status: Full Code PD ED PE NORMAL - Vitals Vital signs reviewed: Yes - General General: Alert and oriented X 3, No acute distress - HEENT HEENT: Moist mucous membranes - Neck Neck: Supple, no meningeal sign - Cardiac Cardiac: RRR - Respiratory Respiratory: No respiratory distress, Other (mild diminished BS bilaterally. mild wheezing. no retractions.) - Derm Derm: Warm and dry - Extremities Extremities: Other (1+ edema B LE) - Neuro Neuro: Alert and oriented X 3 - Psych Psych: Normal mood, Normal affect Results - Vitals Vitals: Vital Signs - 24 hr 08/22/20 08/22/20 08/22/20 12:16 12:20 12:41 Temperature 36.9 C 36.9 C Heart Rate 82 80 81 Respiratory 16 20 18 Rate Blood Pressure 143/67 H 143/67 H 129/71 O2 Saturation 94 97 95 08/22/20 13:41 Temperature Heart Rate 77 Respiratory 16 Rate Blood Pressure 135/80 H O2 Saturation 96 Oxygen O2 Source Room air - Labs Labs: Laboratory Tests 01/07/0208/22/20 08/22/20 13:04 13:04 13:04 WBC 11.3 H RBC 4.63 Hgb 13.7 Hct 42.1 MCV 90.9 MCH 29.6 MCHC 32.5 RDW 13.2 Plt Count 309 MPV 10.4 Neut # (Auto) 9.1 H Lymph # (Auto) 1.7 [place] # (Auto) 0.3 Eos # (Auto) 0.0 Baso # (Auto) 0.0 Absolute Nucleated RBC 0.00 Nucleated RBC % 0.0 Sodium 141 Potassium 3.3 L Chloride 98 L Carbon Dioxide 29 Anion Gap 14.0 H BUN 18 Creatinine 1.1 H Estimated GFR (MDRD) 50 L Glucose 152 H Calcium 9.6 Total Bilirubin 0.6 AST 18 ALT 24 Alkaline Phosphatase 82 B-Natriuretic Peptide 62 Total Protein 6.8 Albumin 3.9 Globulin 2.9 Albumin/Globulin Ratio 1.3 - Rads (name of study) cxr Radiology: Prelim report reviewed, EMP read contemporaneously, See rad report (Mild interstitial prominence, prior CABG. Possible prior smoking history. No definite acute disease) PD MEDICAL DECISION MAKING - ED course Complexity details: reviewed results, re-evaluated patient, considered differential, d/w patient ED course: 64-year-old female presents to the emergency department with what appears to be a COPD flare. Patient is well-appearing, nontoxic. Afebrile. No hypoxia. No respiratory distress. Does not require any further nebulizer treatment in the emergency department. No CHF. No pulmonary edema. We will place her back on a steroid taper and have her follow-up with her traffic enumerator next week. She is also out of her albuterol inhaler and we will refill this for her. Patient counseled regarding signs and symptoms for which I believe and urgent re- evaluation would be necessary. Patient with good understanding of and agreement to plan and is comfortable going home at this time This document was made in part using voice recognition software. While efforts are made to proofread this document, sound alike and grammatical errors may occur. Departure - Departure Disposition: 01 Home, Self Care Clinical Impression: COPD exacerbation Condition: Good Instructions: ED COPD Flare Follow-Up: Bernadette Blackman DO [Primary Care Provider] - Within 1 week Prescriptions: Albuterol Sulf [Ventolin Hfa Inhaler] 1 - 2 puffs INH Q4HR PRN #1 inhaler PRN Reason: Shortness Of Air/Wheezing predniSONE [Deltasone] 10 mg PO [id number] #42 tab Comments: Use the steroids as prescribed. Follow-up with your doctor for further care. Return if you worsen.
[2020-08-22 15:17] VITALS: BP 136/73
== END 2020-08-22 14:23 | disposition home or self-care (01) ==
LOC: EDUNIT# → ED 12:08
DX: J44.1 Chronic obstructive pulmonary disease with (acute) exacerbation (principal); I10 Essential (primary) hypertension; E11.42 Type 2 diabetes mellitus with diabetic polyneuropathy; Z79.84 Long term (current) use of oral hypoglycemic drugs; Z95.2 Presence of prosthetic heart valve; Z79.82 Long term (current) use of aspirin
CPT/HCPCS: 36415; 80053; 83880; 85025; 99284

== ENCOUNTER 2020-09-04 12:21 | Outpatient (CLI) | payer MEDICARE, MEDICAID | END 2020-09-04 12:22 | disposition EMS.NT | LOC: EMS 12:21 | PROVIDERS: ATTEND Surgery | DX: R06.00 Dyspnea, unspecified (principal) ==

== ENCOUNTER 2020-09-09 08:00 | Outpatient (CLI) | payer MEDICARE, MEDICAID ==
[2020-09-09 12:10] LABS: HEMOGLOBIN A1c% 6.2 % (4.27-6.07)
[2020-09-09 12:28] LABS: ALBUMIN/GLOBULIN RATIO 1.5 (1.0-2.2); ALKALINE PHOSPHATASE 77 IU/L (42-121); ALT ALANINE AMINOTRANSFERASE 25 IU/L (10-60); AST ASPARTATE AMINOTRANSFERASE 20 IU/L (10-42); BILIRUBIN,TOTAL 0.7 mg/dL (0.2-1.0); BUN - BLOOD UREA NITROGEN 14 mg/dL (6-20); CALCIUM 8.8 mg/dL (8.5-10.3); CARBON DIOXIDE - CO2 26 mmol/L (21-32); CHLORIDE 100 mmol/L (101-111); CHOL/HDL RATIO 3.2 (<4.4); CHOLESTEROL 216 mg/dL; GLUCOSE 134 mg/dL (70-100); HDL CHOLESTEROL 68 mg/dL; LDL CHOLESTEROL,CALCULATED 128 mg/dL; LDL/HDL RATIO 1.9 (<4.4); TOTAL PROTEIN 6.6 g/dL (6.7-8.2); VLDL CHOLESTEROL 20 mg/dL
== END 2020-09-09 23:59 | disposition home or self-care (01) ==
LOC: LAB.WCP 08:00
PROVIDERS: ATTEND Nurse Practitioner
DX: E11.9 Type 2 diabetes mellitus without complications (principal); I11.0 Hypertensive heart disease with heart failure; I50.9 Heart failure, unspecified; J44.9 Chronic obstructive pulmonary disease, unspecified
CPT/HCPCS: 36415; 80053; 80061; 83036; 83721

== ENCOUNTER 2020-09-09 13:20 | Outpatient (CLI) | payer MEDICARE, MEDICAID ==
--- NOTE | 2020-09-09 16:42 | XRAY Report ---
PROCEDURE: Hip w/Pelvis 2-3V RT INDICATIONS: BACK PAIN, LUMBAR WITH RADICULOPATHY TECHNIQUE: AP pelvis with lateral view(s) of the right hip(s). COMPARISON: X-ray lumbar spine 09/09/2020 FINDINGS: Bones: No fractures or dislocations. Pelvic ring appears intact. No suspicious bony lesions. Dege nerative changes are noted within the lower lumbar spine. Soft tissues: The visualized bowel gas pattern is normal. No suspicious soft tissue calcifications. IMPRESSION: No acute osseous abnormality. Reviewed by: Hetal Aguilar MD on 09/09/2020 4:41 PM PST Approved by: Hetal Aguilar MD on 09/09/2020 4:41 PM PST Station ID: [id number]
--- NOTE | 2020-09-09 16:43 | XRAY Report ---
PROCEDURE: Lumbar Spine Complete INDICATIONS: BACK PAIN, LUMBAR WITH RADICULOPATHY TECHNIQUE: 5 views of the lumbar spine were acquired. COMPARISON: X-ray hip and pelvis 09/09/2020 FINDINGS: Bones: 5 [id number] vertebrae are present. There is trace retrolisthesis of L2 on L3, L3 on L4 . Severe disc space narrowing is present L5-S1 with mild foraminal narrowing at this level. Minimal a nterior osteophytes are present.. No vertebral body compression fractures. No suspicious bony lesio ns. Soft tissues: Overlying bowel gas pattern is normal. No suspicious soft tissue calcifications. IMPRESSION: Degenerative changes most notable at L5-S1 as above. Further evaluation foraminal narrow ing may be obtained with MRI as indicated. Reviewed by: Hetal Aguilar MD on 09/09/2020 4:42 PM PST Approved by: Hetal Aguilar MD on 09/09/2020 4:42 PM PST Station ID: [id number]
== END 2020-09-09 13:21 | disposition home or self-care (01) ==
LOC: DI 13:20
PROVIDERS: ATTEND Internal Medicine
DX: M54.16 Radiculopathy, lumbar region (principal); M43.16 Spondylolisthesis, lumbar region; M51.37 Other intervertebral disc degeneration, lumbosacral region; M48.07 Spinal stenosis, lumbosacral region; E11.9 Type 2 diabetes mellitus without complications; I11.0 Hypertensive heart disease with heart failure; I50.9 Heart failure, unspecified; J44.9 Chronic obstructive pulmonary disease, unspecified
CPT/HCPCS: 36415; 80053; 80061; 83036; 83721

== ENCOUNTER 2020-09-14 17:21 | Emergency (ER) | payer MEDICARE, MEDICAID ==
--- NOTE | 2020-09-14 17:42 | ED Physician Documentation ---
PD HPI CHEST PAIN - Stated complaint Stated Complaint: CP, BACK PX,HIGH BP - Chief complaint Chief Complaint: Cardiac - History obtained from History obtained from: Patient - History of Present Illness Timing - onset: How many days ago (3-4) Timing - onset during: Rest Timing - duration: Days Timing - details: Intermittant Pain level max: 8 Pain level now: 2 Quality: Sharp Location: Left chest Radiation: No: Jaw, Neck, Back, Abdominal, Left upper extremity, Right upper extremity Improved by: Nothing Worsened by: Movement, Palpation Associated symptoms: No: Shortness of air, Diaphoresis, Nausea, Vomiting, Feeling faint / dizzy, General Weakness, Palpitations, Cough Similar symptoms before: Has not had sx before Review of Systems Ten Systems: 10 systems reviewed and negative Constitutional: denies: Fever, Chills Ears: denies: Ear pain Nose: denies: Rhinorrhea / runny nose, Congestion Throat: denies: Sore throat Cardiac: denies: Palpitations Respiratory: denies: Cough GI: denies: Vomiting, Diarrhea Skin: denies: Rash Musculoskeletal: denies: Neck pain, Back pain Neurologic: denies: Headache PD PAST MEDICAL HISTORY - Past Medical History Cardiovascular: Congestive heart failure, Hypertension, High cholesterol, Coronary artery disease, Angina, Murmur, Valve disorder Respiratory: COPD, Emphysema, Shortness of breath, Other Neuro: Headaches, Peripheral neuropathy Endocrine/Autoimmune: Type 2 diabetes GI: GERD 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 : Incontinence HEENT: Chronic vision loss, Chronic sinusitis Psych: Depression, Anxiety, Bipolar disorder Musculoskeletal: Osteoarthritis Derm: None - Past Surgical History Past Surgical History: Yes General: 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 /COTTON BAG SEWER: 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 Cardiovascular: Valve replacement HEENT: Tonsil/Adenoidectomy - Present Medications Home Medications: Ambulatory Orders Medication Instructions Recorded Confirmed Aspirin [Aspirin EC] 81 mg PO DAILY 02/25/19 08/22/20 Gabapentin 300 mg PO TID PRN 02/25/19 08/22/20 Ipratropium/Albuterol [Duoneb] 3 ml INH BID 02/25/19 08/22/20 Montelukast [Singulair] 10 mg PO QPM 02/25/19 08/22/20 metFORMIN [Glucophage] 500 mg PO BID 02/25/19 08/22/20 Albuterol Sulf [Ventolin Hfa 2 puffs PO Q4H PRN 02/26/19 08/22/20 Inhaler] Simvastatin 10 mg PO DAILY #30 tablet 02/26/19 08/22/20 Bumetanide [Bumex] 2 tab PO DAILY #20 tablet 08/13/20 08/22/20 Fluticasone/Umeclidin/Vilanter 2 puffs IH Q4HR PRN 08/13/20 08/22/20 [Trelegy Ellipta 200-62.5-25] predniSONE [Deltasone] 20 mg PO [id number] #21 tab 08/13/20 08/22/20 Albuterol Sulf [Ventolin Hfa 1 - 2 puffs INH Q4HR PRN #1 inhaler 08/22/20 Inhaler] Bumetanide 1 mg PO DAILY 08/22/20 08/22/20 Metoprolol Tartrate [Lopressor] 12.5 mg PO BID 08/22/20 08/22/20 predniSONE [Deltasone] 10 mg PO [id number] #42 tab 08/22/20 Meloxicam [Mobic] 7.5 mg PO BID PRN #20 tablet 09/14/20 - Allergies Allergies/Adverse Reactions: Allergies Allergy/AdvReac Type Severity Reaction Status Date / Time levofloxacin [From Levaquin] Allergy Hives Verified 09/14/20 17:35 oxycodone Allergy Itching Verified 09/14/20 17:35 - Social History Does the pt smoke?: No Smoking Status: Never smoker Does the pt drink ETOH?: Yes Does the pt have substance abuse?: No - Immunizations Immunizations are current?: Yes - POLST Patient has POLST: No POLST Status: Full Code PD ED PE NORMAL - Vitals Vital signs reviewed: Yes - General General: Alert and oriented X 3, No acute distress - HEENT HEENT: Moist mucous membranes - Neck Neck: Supple, no meningeal sign - Cardiac Cardiac: RRR, Strong equal pulses - Respiratory Respiratory: No respiratory distress, Clear bilaterally - Abdomen Abdomen: Soft, Non tender, Non distended - Derm Derm: Warm and dry - Extremities Extremities: No calf tenderness / cord - Neuro Neuro: Alert and oriented X 3 - Psych Psych: Normal mood, Normal affect - Free text exam Free text exam: Tender to palpation over the left anterior chest wall. Reproduces her pain. No rash. Results - Vitals Vitals: Vital Signs - 24 hr 09/14/20 09/14/20 17:31 18:34 Temperature 37.0 C 37.0 C Heart Rate 88 77 Respiratory 24 20 Rate Blood Pressure 159/64 H 136/71 H O2 Saturation 97 99 Oxygen O2 Source Room air - EKG (time done) 1729 Rate: Rate (enter#) (82) Rhythm: NSR [place]: Normal Intervals: Normal DE QRS: Normal Ischemia: Non specific changes - Labs Labs: Laboratory Tests 09/14/20 09/14/20 09/14/20 17:40 17:40 17:40 WBC 7.0 RBC 4.28 Hgb 12.7 Hct 38.9 MCV 90.9 MCH 29.7 MCHC 32.6 RDW 13.2 Plt Count 242 MPV 9.9 Neut # (Auto) 4.4 Lymph # (Auto) 2.1 [place] # (Auto) 0.4 Eos # (Auto) 0.1 Baso # (Auto) 0.0 Absolute Nucleated RBC 0.00 Nucleated RBC % 0.0 Sodium 137 Potassium 3.2 L Chloride 101 Carbon Dioxide 26 Anion Gap 10.0 BUN 10 Creatinine 1.0 Estimated GFR (MDRD) 55 L Glucose 104 H Calcium 9.3 Total Bilirubin 0.5 AST 17 ALT 23 Alkaline Phosphatase 74 Troponin I High Sens 6.4 Total Protein 6.6 L Albumin 3.9 Globulin 2.7 Albumin/Globulin Ratio 1.4 Lipase 24 - Rads (name of study) chest X-ray Radiology: Prelim report reviewed, EMP read contemporaneously, See rad report PD MEDICAL DECISION MAKING - ED course Complexity details: reviewed results, re-evaluated patient, considered differential (No ST elevation IA, no aortic dissection, no PE, no tension pneumothorax, no aortic aneurysm), d/w patient ED course: Patient with sharp, reproducible chest pain. Appears musculoskeletal. Worse with movement and better with rest. No evidence of acute coronary syndrome, pulmonary embolus, pneumothorax. No acute laboratory findings. Feels better after Toradol. Will place on anti-inflammatories for home and have her follow- up with her doctor. No cough. No congestion. No evidence of Covid. Patient counseled regarding signs and symptoms for which I believe and urgent re- evaluation would be necessary. Patient with good understanding of and agreement to plan and is comfortable going home at this time This document was made in part using voice recognition software. While efforts are made to proofread this document, sound alike and grammatical errors may occur. Departure - Departure Disposition: 01 Home, Self Care Clinical Impression: Chest wall pain Condition: Good Instructions: ED Chest Pain Costochondritis Follow-Up: Bettie Rangel ARNP, [employer] [Primary Care Provider] - Within 1 week Prescriptions: Meloxicam [Mobic] 7.5 mg PO BID PRN #20 tablet PRN Reason: Pain Comments: Follow-up with your doctor for further care. Return if you worsen. This should improve over the next few days. Discharge Date/Time: 09/14/20 18:36
[2020-09-14 17:49] LABS: BASOPHILS % (AUTO) 0.6 %; EOSINOPHILS # (AUTO) 0.1 10^3/uL (0.0-0.7); EOSINOPHILS % (AUTO) 1.6 %; HGB - HEMOGLOBIN 12.7 g/dL (12.0-16.0); LYMPHOCYTES # (AUTO) 2.1 10^3/uL (1.5-3.5); LYMPHOCYTES % (AUTO) 29.5 %; MEAN CORPUSCULAR HEMOGLOBIN 29.7 pg (27.0-31.0); MEAN CORPUSCULAR HGB CONC 32.6 g/dL (32.0-36.0); MEAN CORPUSCULAR VOLUME 90.9 fL (81.0-99.0); MEAN PLATELET VOLUME 9.9 fL (7.9-10.8); MONOCYTES # (AUTO) 0.4 10^3/uL (0.0-1.0); MONOCYTES % (AUTO) 5.4 %; NEUTROPHILS # (AUTO) 4.4 10^3/uL (1.5-6.6); NEUTROPHILS % (AUTO) 62.6 %; PLT - PLATELET COUNT 242 10^3/uL (130-450); RED BLOOD COUNT 4.28 10^6/uL (4.20-5.40); RED CELL DISTRIBUTION WIDTH 13.2 % (12.0-15.0)
[2020-09-14 18:02] LABS: ALBUMIN 3.9 g/dL (3.2-5.5); ALBUMIN/GLOBULIN RATIO 1.4 (1.0-2.2); BILIRUBIN,TOTAL 0.5 mg/dL (0.2-1.0); CALCIUM 9.3 mg/dL (8.5-10.3); TOTAL PROTEIN 6.6 g/dL (6.7-8.2)
--- NOTE | 2020-09-14 18:11 | XRAY Report ---
PROCEDURE: Chest 1 View X-Ray INDICATIONS: Chest Pain TECHNIQUE: One view of the chest was acquired. COMPARISON: 08/22/2020 FINDINGS: Surgical changes and devices: Median sternotomy wires are seen.. Lungs and pleura: No pleural effusions or pneumothorax. Linear atelectasis left lung base is seen. N o focal infiltrate. Mediastinum: Mediastinal contours appear normal. Heart size is normal. Bones and chest wall: No suspicious bony lesions. Overlying soft tissues appear unremarkable. IMPRESSION: Left basilar scarring/atelectasis. No focal infiltrate, pleural effusion or pneumothorax. Reviewed by: Vincent Hutchins MD on 09/14/2020 5:09 PM [place] Approved by: Vincent Hutchins MD on 09/14/2020 5:09 PM [facility] Station ID: [id number]
[2020-09-14] MEDS ORDERED: KETOROLAC 30 MG/ML VIAL IVP STA (18:23)
[2020-09-14 18:36] VITALS: BP 136/71
== END 2020-09-14 18:36 | disposition home or self-care (01) ==
LOC: ED 17:21
DX: R07.89 Other chest pain (principal); I10 Essential (primary) hypertension; I25.10 Atherosclerotic heart disease of native coronary artery without angina pectoris; Z95.2 Presence of prosthetic heart valve; E11.42 Type 2 diabetes mellitus with diabetic polyneuropathy; Z79.84 Long term (current) use of oral hypoglycemic drugs; Z79.82 Long term (current) use of aspirin
CPT/HCPCS: 80053; 83690; 84484; 85025; 93005; 96374; 99284

== ENCOUNTER 2020-09-16 03:13 | Outpatient (CLI) | payer MEDICARE, MEDICAID | END 2020-09-16 23:59 | disposition critical access hospital (66) | LOC: EMS 03:13 | PROVIDERS: ATTEND Emergency Medicine | DX: R07.89 Other chest pain (principal) | CPT/HCPCS: A0425; A0429 ==

== ENCOUNTER 2020-09-16 03:31 | Emergency (ER) | payer MEDICARE, MEDICAID ==
[2020-09-16] MEDS ORDERED: HYDROmorphone 1 MG/ML CARPUJECT IVP STA (04:08)
--- NOTE | 2020-09-16 04:12 | ED Physician Documentation ---
PD HPI CHEST PAIN - Stated complaint Stated Complaint: L SIDE CP - Chief complaint Chief Complaint: Cardiac - History obtained from History obtained from: Patient - Additional information Additional information: Patient comes emergency department via EMS with chief complaint of recurrence of left breast and side pain That is worse with deep breaths. Patient was just seen for this a couple of days ago with a full work-up, and Dido with costochondritis. The patient states that the pain seems somewhat worse this time, though her meloxicam/tizanidine does seem to take some the edge off. Patient denies any nausea or vomiting. No new shortness of breath or cough. She states she has slightly increased swelling in her lower extremities since her last visit a couple of days ago. No other complaints at this time. She states the pains seem to wax and wane. The patient does note that she does not feel she has been getting enough sleep, as she is only able to sleep a broken 4 to 5 hours every night. She states she wakes up around 2-3 every morning and takes a nebulizer treatment and then cannot get back to sleep. She believes this is contributed to her stress level and her chest wall pain. Review of Systems Ten Systems: 10 systems reviewed and negative Constitutional: reports: Reviewed and negative Eyes: reports: Reviewed and negative Ears: reports: Reviewed and negative Nose: reports: Reviewed and negative Throat: reports: Reviewed and negative Cardiac: reports: Chest pain / pressure, Pedal edema Respiratory: reports: Dyspnea (At baseline). denies: Cough GI: reports: Reviewed and negative. denies: Abdominal Pain : reports: Reviewed and negative Skin: reports: Reviewed and negative Musculoskeletal: reports: Reviewed and negative Neurologic: reports: Reviewed and negative Psychiatric: reports: Reviewed and negative Endocrine: reports: Reviewed and negative Immunocompromised: reports: Reviewed and negative PD PAST MEDICAL HISTORY - Past Medical History Past Medical History: Yes Cardiovascular: Congestive heart failure, Hypertension, High cholesterol, Coronary artery disease, Angina, Murmur, Valve disorder Respiratory: COPD, Emphysema, Shortness of breath, Other Neuro: Headaches, Peripheral neuropathy Endocrine/Autoimmune: Type 2 diabetes GI: GERD 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 : Incontinence HEENT: Chronic vision loss, Chronic sinusitis Psych: Depression, Anxiety, Bipolar disorder Musculoskeletal: Osteoarthritis Derm: None Other Past Medical History: Calcification of Aortic valve - Past Surgical History Past Surgical History: Yes General: 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 /RUBBER TUBING BACKER: 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 Cardiovascular: Valve replacement HEENT: Tonsil/Adenoidectomy - Present Medications Home Medications: Ambulatory Orders Medication Instructions Recorded Confirmed Aspirin [Aspirin EC] 81 mg PO DAILY 02/25/19 09/16/20 Gabapentin 300 mg PO TID PRN 02/25/19 09/16/20 Ipratropium/Albuterol [Duoneb] 3 ml INH BID 02/25/19 09/16/20 Montelukast [Singulair] 10 mg PO QPM 02/25/19 09/16/20 metFORMIN [Glucophage] 500 mg PO BID 02/25/19 09/16/20 Albuterol Sulf [Ventolin Hfa 2 puffs PO Q4H PRN 02/26/19 09/16/20 Inhaler] Simvastatin 10 mg PO DAILY #30 tablet 02/26/19 09/16/20 Bumetanide [Bumex] 2 tab PO DAILY #20 tablet 08/13/20 09/16/20 Fluticasone/Umeclidin/Vilanter 2 puffs IH Q4HR PRN 08/13/20 09/16/20 [Trelemagnus Ellipta 200-62.5-25] predniSONE [Deltasone] 20 mg PO [id number] #21 tab 08/13/20 09/16/20 Albuterol Sulf [Ventolin Hfa 1 - 2 puffs INH Q4HR PRN #1 inhaler 08/22/20 09/16/20 Inhaler] Bumetanide 1 mg PO DAILY 08/22/20 09/16/20 Metoprolol Tartrate [Lopressor] 12.5 mg PO BID 08/22/20 09/16/20 predniSONE [Deltasone] 10 mg PO [id number] #42 tab 08/22/20 09/16/20 Meloxicam [Mobic] 7.5 mg PO BID PRN #20 tablet 09/14/20 09/16/20 traMADol [Ultram] 100 mg PO Q6H PRN #12 09/16/20 - Allergies Allergies/Adverse Reactions: Allergies Allergy/AdvReac Type Severity Reaction Status Date / Time levofloxacin [From Levaquin] Allergy Hives Verified 09/16/20 03:48 oxycodone Allergy Itching Verified 09/16/20 03:48 - Social History Does the pt smoke?: No Smoking Status: Never smoker Does the pt drink ETOH?: Yes Does the pt have substance abuse?: No - Immunizations Immunizations are current?: Yes - POLST Patient has POLST: No POLST Status: Full Code PD ED PE NORMAL - Vitals Vital signs reviewed: Yes - General General: Alert and oriented X 3, No acute distress, Well developed/nourished - HEENT HEENT: Atraumatic, PERRL, EOMI, Moist mucous membranes - Neck Neck: Supple, no meningeal sign - Cardiac Cardiac: RRR, No murmur, Strong equal pulses - Respiratory Respiratory: No respiratory distress, Clear bilaterally, Other (Mildly decreased air movement bilaterally.) - Abdomen Abdomen: Soft, Non tender, Non distended - Derm Derm: Normal color, Warm and dry, No rash - Extremities Extremities: No deformity, No calf tenderness / cord, Other (Obese lower extremities with 1+ pitting edema bilaterally.) - Neuro Neuro: Alert and oriented X 3, Other (Grossly intact.) - Psych Psych: Normal mood, Normal affect Results - Vitals Vitals: Vital Signs - 24 hr 09/16/20 09/16/20 09/16/20 03:31 04:30 04:49 Temperature 36.2 C L Heart Rate 84 72 74 Respiratory 18 15 14 Rate Blood Pressure 155/78 H 148/84 H 122/79 O2 Saturation 98 99 98 Oxygen O2 Source Room air - EKG (time done) 0337 Rate: Rate (enter#) (84) Rhythm: NSR, LAE [place]: Normal Intervals: Normal CT QRS: Normal Ischemia: Non specific changes Compare to prior EKG: Old EKG unavailable Computer interpretation: Agree with computer - Labs Labs: Laboratory Tests 09/16/20 09/16/20 04:15 04:15 WBC 6.8 RBC 4.37 Hgb 12.9 Hct 39.9 MCV 91.3 MCH 29.5 MCHC 32.3 RDW 13.2 Plt Count 297 MPV 10.7 Neut # (Auto) 3.9 Lymph # (Auto) 2.2 [place] # (Auto) 0.5 Eos # (Auto) 0.2 Baso # (Auto) 0.1 Absolute Nucleated RBC 0.00 Nucleated RBC % 0.0 Troponin I High Sens 6.4 - Rads (name of study) CXR Radiology: EMP read indepedently (neg), See rad report PD MEDICAL DECISION MAKING - ED course Complexity details: reviewed old records, reviewed results, re-evaluated tamia dominguez, considered differential, d/w patient ED course: The patient was worked up with labs and EKG again, given her high risk situation. The patient did have very mechanical sounding chest pain, and had had a negative work-up the other day. This is once again negative today. Again we have discussed the usual indications for return. At the patient is advised to follow-up with her primary doctor and specialists for further concerns regarding the ongoing pain with inspiration. We have discussed the usual indications for return to the emergency department. Departure - Departure Disposition: 01 Home, Self Care Clinical Impression: Chest wall pain Condition: Stable Instructions: ED Chest Pain Costochondritis Prescriptions: traMADol [Ultram] 100 mg PO Q6H PRN #12 PRN Reason: Pain Discharge Date/Time: 09/16/20 05:40
[2020-09-16 04:28] LABS: BASOPHILS # (AUTO) 0.1 10^3/uL (0.0-0.1); BASOPHILS % (AUTO) 0.7 %; EOSINOPHILS # (AUTO) 0.2 10^3/uL (0.0-0.7); EOSINOPHILS % (AUTO) 2.4 %; HGB - HEMOGLOBIN 12.9 g/dL (12.0-16.0); LYMPHOCYTES # (AUTO) 2.2 10^3/uL (1.5-3.5); LYMPHOCYTES % (AUTO) 32.3 %; MEAN CORPUSCULAR HEMOGLOBIN 29.5 pg (27.0-31.0); MEAN CORPUSCULAR HGB CONC 32.3 g/dL (32.0-36.0); MEAN CORPUSCULAR VOLUME 91.3 fL (81.0-99.0); MEAN PLATELET VOLUME 10.7 fL (7.9-10.8); MONOCYTES # (AUTO) 0.5 10^3/uL (0.0-1.0); NEUTROPHILS # (AUTO) 3.9 10^3/uL (1.5-6.6); NEUTROPHILS % (AUTO) 57.5 %; PLT - PLATELET COUNT 297 10^3/uL (130-450); RED BLOOD COUNT 4.37 10^6/uL (4.20-5.40); RED CELL DISTRIBUTION WIDTH 13.2 % (12.0-15.0); WHITE BLOOD COUNT 6.8 x10^3/uL (4.8-10.8)
[2020-09-16 04:50] VITALS: BP 122/79
[2020-09-16] MEDS ORDERED: HYDROcod/ACETAM 5/325 MG TABLET PO STA (04:51)
[2020-09-16] MEDS ORDERED: traMADol 50 MG TABLET PO STA (04:54)
--- NOTE | 2020-09-16 08:44 | XRAY Report ---
PROCEDURE: Chest 1 View X-Ray INDICATIONS: Chest pain TECHNIQUE: One view of the chest was acquired. COMPARISON: 09/14/20 FINDINGS: Surgical changes and devices: Post-surgical changes are redemonstrated in the mediastinum. Lungs and pleura: No pleural effusions or pneumothorax. There is mild atelectasis in the left base. No focal consolidation. Mediastinum: Mediastinal contours appear normal. Heart size is normal. Bones and chest wall: No suspicious bony lesions. Overlying soft tissues appear unremarkable. IMPRESSION: 1. No acute cardiopulmonary disease. Reviewed by: Jan Alva MD on 09/16/2020 8:42 AM [facility] Approved by: Jan Alva MD on 09/16/2020 8:42 AM [facility] Station ID: [id number]
== END 2020-09-16 05:40 | disposition home or self-care (01) ==
LOC: EDUNIT# → ED 03:31
DX: R07.89 Other chest pain (principal); M94.0 Chondrocostal junction syndrome [Tietze]; I10 Essential (primary) hypertension; E11.42 Type 2 diabetes mellitus with diabetic polyneuropathy; Z79.84 Long term (current) use of oral hypoglycemic drugs; Z79.82 Long term (current) use of aspirin
CPT/HCPCS: 36415; 71045; 84484; 85025; 93005; 96374; 99284; A9270; J1170; 80053; 83690

== ENCOUNTER 2020-09-16 10:29 | Emergency (ER) | payer MEDICARE, MEDICAID ==
[2020-09-16] MEDS ORDERED: CHERRY SYRUP 10 ML UDC PO ONE (11:21)
[2020-09-16] MEDS ORDERED: DEXAMETHASONE 10 MG/ML VIAL PO STA (11:21)
[2020-09-16] MEDS ORDERED: diphenhydrAMINE INJ 50 MG/ML VIAL IM STA (11:22)
--- NOTE | 2020-09-16 11:24 | ED Physician Documentation ---
History of Present Illness - Stated complaint Stated Complaint: SOA/ITCHING - Chief complaint Chief Complaint: Heent - History obtained from History obtained from: Patient - History of Present Illness Timing: Today - Additonal information Additional information: 64-year-old female who has been diagnosed with costochondritis is on some meloxicam and this became ineffective in the middle of the night and she had severe enough pain that she came back to the emergency department. She has had 2 work-ups now for this left-sided chest pain and both have indicated costochondritis is the diagnosis. She has been treated for this with meloxicam and has had some success but had breakthrough pain this morning and was given a dose of tramadol. This is the only new medication to her. She did not fill the prescription for tramadol but she did get itchiness and some shortness of breath. She is come back to the emergency department for treatment of this after she got a hold of her clinic and they told her to come to the emergency department. Review of Systems Constitutional: denies: Fever Eyes: denies: Decreased vision Ears: denies: Ear pain Nose: denies: Rhinorrhea / runny nose, Congestion Throat: denies: Sore throat Cardiac: reports: Chest pain / pressure. denies: Palpitations, Pedal edema, Calf pain Respiratory: reports: Dyspnea, Cough GI: denies: Abdominal Pain, Nausea, Vomiting : denies: Dysuria, Frequency PD PAST MEDICAL HISTORY - Past Medical History Cardiovascular: Congestive heart failure, Hypertension, High cholesterol, Coronary artery disease, Angina, Murmur, Valve disorder Respiratory: COPD, Emphysema, Shortness of breath, Other Neuro: Headaches, Peripheral neuropathy Endocrine/Autoimmune: Type 2 diabetes GI: GERD DIRECTOR OF PUBLIC WORKS: None : Incontinence HEENT: Chronic vision loss, Chronic sinusitis Psych: Depression, Anxiety, Bipolar disorder Musculoskeletal: Osteoarthritis Derm: None - Past Surgical History Past Surgical History: Yes General: 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 /DIRECTOR OF PUBLIC WORKS: 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 Cardiovascular: Valve replacement HEENT: Tonsil/Adenoidectomy - Present Medications Home Medications: Ambulatory Orders Medication Instructions Recorded Confirmed Aspirin [Aspirin EC] 81 mg PO DAILY 02/25/19 09/16/20 Gabapentin 300 mg PO TID PRN 02/25/19 09/16/20 Ipratropium/Albuterol [Duoneb] 3 ml INH BID 02/25/19 09/16/20 Montelukast [Singulair] 10 mg PO QPM 02/25/19 09/16/20 metFORMIN [Glucophage] 500 mg PO BID 02/25/19 09/16/20 Albuterol Sulf [Ventolin Hfa 2 puffs PO Q4H PRN 02/26/19 09/16/20 Inhaler] Simvastatin 10 mg PO DAILY #30 tablet 02/26/19 09/16/20 Fluticasone/Umeclidin/Vilanter 2 puffs IH Q4HR PRN 08/13/20 09/16/20 [Trelegy Ellipta 200-62.5-25] Albuterol Sulf [Ventolin Hfa 1 - 2 puffs INH Q4HR PRN #1 inhaler 08/22/20 09/16/20 Inhaler] Metoprolol Tartrate [Lopressor] 12.5 mg PO BID 08/22/20 09/16/20 Meloxicam [Mobic] 7.5 mg PO BID PRN #20 tablet 09/14/20 09/16/20 Bumetanide [Bumex] 3 tab PO DAILY 09/16/20 - Allergies Allergies/Adverse Reactions: Allergies Allergy/AdvReac Type Severity Reaction Status Date / Time levofloxacin [From Levaquin] Allergy Hives Verified 09/16/20 10:42 oxycodone Allergy Itching Verified 09/16/20 10:42 tramadol AdvReac Itching Verified 09/16/20 10:45 - Social History Does the pt smoke?: No Smoking Status: Never smoker Does the pt drink ETOH?: Yes Does the pt have substance abuse?: No - Immunizations Immunizations are current?: Yes - POLST Patient has POLST: No POLST Status: Full Code PD ED PE NORMAL - Vitals Vital signs reviewed: Yes (tachy and hypertensive ) - General General: Alert and oriented X 3, No acute distress, Well developed/nourished - HEENT HEENT: Atraumatic, PERRL, EOMI, Other (dry mucous membranes ) - Neck Neck: Supple, no meningeal sign, No bony TTP - Cardiac Cardiac: RRR, Other (1/6 holosystolic murmer at LSB. Tachy to 100) - Respiratory Respiratory: No respiratory distress, Clear bilaterally, Other (chest wall tenderness to the left side. diminished breath sounds. ) - Abdomen Abdomen: Normal bowel sounds, Soft, Non tender, Non distended, No organomegaly - Back Back: No CVA TTP, No spinal TTP - Derm Derm: Normal color, Warm and dry, No rash - Extremities Extremities: No deformity, No edema - Neuro Neuro: Alert and oriented X 3, ruling machine operator 2-12 intact, No motor deficit, No sensory deficit, Normal speech Eye Opening: Spontaneous Motor: Obeys Commands Verbal: Oriented GCS Score: 15 - Psych Psych: Normal mood, Normal affect Results - Vitals Vitals: Vital Signs - 24 hr 09/16/20 10:37 Temperature 36.3 C L Heart Rate 103 H Respiratory 18 Rate Blood Pressure 143/99 H O2 Saturation 96 Oxygen O2 Source Room air PD MEDICAL DECISION MAKING - ED course Complexity details: reviewed old records, reviewed results, re-evaluated patient, considered differential, d/w patient ED course: 64-year-old type II diabetic female has costochondritis and she was given a dose of tramadol early this morning about 5 AM and she has developed itching. She is administered a dose of dexamethasone and Benadryl here in the emergency department. Departure - Departure Disposition: 01 Home, Self Care Clinical Impression: Allergic reaction caused by a drug Qualifiers: Encounter type: initial encounter Qualified Code(s): T78.40XA - Allergy, unspecified, initial encounter Condition: Stable Instructions: ED Drug React Allergic Follow-Up: Bettie Rangel ARNP, RIVET MACHINE OPERATOR-C [Primary Care Provider] - Comments: Discontinue the use of the tramadol and take Benadryl 25 to 50 mg every 6 hours for the next 2 days.
[2020-09-16 11:50] VITALS: BP 150/74
== END 2020-09-16 11:52 | disposition home or self-care (01) ==
LOC: ED 10:29
DX: M94.0 Chondrocostal junction syndrome [Tietze] (principal); L29.9 Pruritus, unspecified; T40.425A Adverse effect of tramadol, initial encounter; Y92.538 Other ambulatory health services establishments as the place of occurrence of the external cause; I10 Essential (primary) hypertension; E11.42 Type 2 diabetes mellitus with diabetic polyneuropathy; Z79.84 Long term (current) use of oral hypoglycemic drugs; Z79.82 Long term (current) use of aspirin
CPT/HCPCS: 96372; 99283; 99284; A9270; J1200; 36415; 80053; 83690; 84484; 85025; 93005; 96374

== ENCOUNTER 2020-09-20 08:56 | Outpatient (CLI) | payer MEDICARE, MEDICAID | END 2020-09-20 08:57 | disposition critical access hospital (66) | LOC: EMS 08:56 | PROVIDERS: ATTEND Emergency Medicine | DX: R06.00 Dyspnea, unspecified (principal) | CPT/HCPCS: A0425; A0429 ==

== ENCOUNTER 2020-09-20 09:16 | Emergency (ER) | payer MEDICARE, MEDICAID ==
[2020-09-20] MEDS ORDERED: methylPREDNISolone SUCCINATE 125 MG/2 ML VIAL IVP STA (09:47)
--- NOTE | 2020-09-20 09:53 | ED Physician Documentation ---
PD HPI DYSPNEA - Stated complaint Stated Complaint: DYSPNEA - Chief complaint Chief Complaint: Resp - History obtained from History obtained from: Patient - History of Present Illness Timing - onset: How many months ago (2) Timing - onset during: Rest Timing - duration: Months (2) Timing - details: Gradual onset, Waxing and waning Inciting event(s): Exposure (ie smoke) Improved by: Inhaler/neb, Steroids Worsened by: Exertion Associated symptoms: Chest pain / discomfort. No: Fever, Cough, Wheezing Similar symptoms before: Diagnosis (emphysema and costochondritis) Recently seen: Emergency Dept - Additional information Additional information: 64-year-old female with a history of emphysema has had a aortic valve replacement done last year for critical aortic stenosis and she had a bovine valve placed and this made a lot of difference. She has now developed some exertional dyspnea and chest pain that has been going on for several months. She was seen here in August had a pulmonary angiogram done without evidence of pulmonary embolism and she was on a course of steroid and had some improvement she has subsequently come back with chest pain and has been diagnosed with costochondritis. I personally seen the patient with costochondritis. She is back in here again today with exertional dyspnea that is worse with even minimal exertion in her home. She states that she is breathing better here than she does at her home and that she believes there is some environmental exposure home that is causing her some issue. She has an appointment see her restaurant mgr on the . She is not coughing does not have a fever she does have some peripheral edema that is mild worse on the right than the left. She has chest pain with deep inspiration. She does have a pulmonary nodule on the left side and she is scheduled to have that biopsied in the coming weeks. It has apparently grown over the past year. Review of Systems Constitutional: denies: Fever Eyes: denies: Decreased vision Ears: denies: Ear pain Nose: denies: Congestion Throat: denies: Sore throat Cardiac: reports: Chest pain / pressure Respiratory: reports: Dyspnea, Wheezing. denies: Cough GI: denies: Abdominal Pain, Nausea, Vomiting : denies: Dysuria, Frequency Skin: denies: Rash Musculoskeletal: reports: Extremity swelling. denies: Neck pain, Back pain, Extremity pain Neurologic: denies: Generalized weakness, Focal weakness, Numbness PD PAST MEDICAL HISTORY - Past Medical History Cardiovascular: Congestive heart failure, Hypertension, High cholesterol, Coronary artery disease, Angina, Murmur, Valve disorder Respiratory: COPD, Emphysema, Shortness of breath, Other Neuro: Headaches, Peripheral neuropathy Endocrine/Autoimmune: Type 2 diabetes GI: GERD BAR POINTER: None : Incontinence HEENT: Chronic vision loss, Chronic sinusitis Psych: Depression, Anxiety, Bipolar disorder Musculoskeletal: Osteoarthritis Derm: None - Past Surgical History Past Surgical History: Yes General: 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 /BAR POINTER: 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 Cardiovascular: Valve replacement HEENT: Tonsil/Adenoidectomy - Present Medications Home Medications: Ambulatory Orders Medication Instructions Recorded Confirmed Aspirin [Aspirin EC] 81 mg PO DAILY 02/25/19 09/20/20 Gabapentin 300 mg PO TID PRN 02/25/19 09/20/20 Ipratropium/Albuterol [Duoneb] 3 ml INH BID 02/25/19 09/20/20 Montelukast [Singulair] 10 mg PO QPM 02/25/19 09/20/20 metFORMIN [Glucophage] 500 mg PO BID 02/25/19 09/20/20 Simvastatin 10 mg PO DAILY #30 tablet 02/26/19 09/20/20 Fluticasone/Umeclidin/Vilanter 2 puffs IH Q4HR PRN 08/13/20 09/20/20 [Trelegy Ellipta 200-62.5-25] Albuterol Sulf [Ventolin Hfa 1 - 2 puffs INH Q4HR PRN #1 inhaler 08/22/20 09/20/20 Inhaler] Metoprolol Tartrate [Lopressor] 12.5 mg PO BID 08/22/20 09/20/20 Meloxicam [Mobic] 7.5 mg PO BID PRN #20 tablet 09/14/20 09/20/20 Bumetanide [Bumex] 3 tab PO DAILY 09/16/20 09/20/20 Azithromycin [Zithromax] 250 mg PO DAILY 5 Days #6 tab 09/20/20 hydrOXYzine HCL [Hydroxyzine HCl] 25 mg PO QID 09/20/20 09/20/20 predniSONE [Deltasone] 10 mg PO [id number] #42 tab 09/20/20 - Allergies Allergies/Adverse Reactions: Allergies Allergy/AdvReac Type Severity Reaction Status Date / Time levofloxacin [From Levaquin] Allergy Hives Verified 09/20/20 09:23 oxycodone Allergy Itching Verified 09/20/20 09:23 tramadol AdvReac Itching Verified 09/20/20 09:23 - Social History Does the pt smoke?: No Smoking Status: Never smoker Does the pt drink ETOH?: Yes Does the pt have substance abuse?: No - Immunizations Immunizations are current?: Yes - POLST Patient has POLST: No POLST Status: Full Code PD ED PE NORMAL - Vitals Vital signs reviewed: Yes (hypertensive ) - General General: Alert and oriented X 3, No acute distress, Well developed/nourished - HEENT HEENT: Atraumatic, PERRL, EOMI - Neck Neck: Supple, no meningeal sign, No bony TTP - Cardiac Cardiac: RRR, No murmur - Respiratory Respiratory: No respiratory distress, Other (diminished breath sounds) - Abdomen Abdomen: Soft, Non tender - Back Back: No CVA TTP - Derm Derm: Normal color, Warm and dry, No rash - Extremities Extremities: No deformity, Other (Trace edema bilaterally worse on the right than the left) - Neuro Neuro: Alert and oriented X 3, examination proctor 2-12 intact, No motor deficit, No sensory deficit, Normal speech Eye Opening: Spontaneous Motor: Obeys Commands Verbal: Oriented GCS Score: 15 - Psych Psych: Normal mood, Normal affect Results - Vitals Vitals: Vital Signs - 24 hr 09/20/20 09/20/20 09/20/20 09:23 10:00 10:30 Temperature 36.7 C Heart Rate 74 70 71 Respiratory 16 19 14 Rate Blood Pressure 135/97 H 119/78 126/71 O2 Saturation 99 99 98 09/20/20 09/20/20 09/20/20 11:00 11:30 12:00 Temperature Heart Rate 73 73 77 Respiratory 21 19 19 Rate Blood Pressure 129/69 136/80 H 148/78 H O2 Saturation 98 97 98 09/20/20 12:27 Temperature 37.1 C Heart Rate 80 Respiratory 20 Rate Blood Pressure 139/76 H O2 Saturation 99 Oxygen O2 Source Room air - Labs Labs: Laboratory Tests 09/20/20 09/20/20 09/20/20 10:03 10:03 10:16 WBC 7.5 RBC 4.45 Hgb 13.4 Hct 41.2 MCV 92.6 MCH 30.1 MCHC 32.5 RDW 13.2 Plt Count 329 MPV 10.3 Neut # (Auto) 4.8 Lymph # (Auto) 2.1 [place] # (Auto) 0.5 Eos # (Auto) 0.1 Baso # (Auto) 0.0 Absolute Nucleated RBC 0.00 Nucleated RBC % 0.0 D-Dimer Sodium 145 Potassium 4.1 Chloride 102 Carbon Dioxide 30 Anion Gap 13.0 BUN 14 Creatinine 1.1 H Estimated GFR (MDRD) 50 L Glucose 112 H Calcium 10.1 Total Bilirubin 0.6 AST 19 ALT 22 Alkaline Phosphatase 82 Total Protein 7.0 Albumin 4.1 Globulin 2.9 Albumin/Globulin Ratio 1.4 Lipase 29 Urine Color YELLOW Urine Clarity CLEAR Urine pH 6.0 Ur Specific [place] <=1.005 Urine Protein NEGATIVE Urine Glucose (UA) NEGATIVE Urine Ketones NEGATIVE Urine Occult Blood NEGATIVE Urine Nitrite NEGATIVE Urine Bilirubin NEGATIVE Urine Urobilinogen 0.2 (NORMAL) Ur Leukocyte Esterase NEGATIVE Ur Microscopic Review NOT INDICATED Urine Culture Comments NOT INDICATED 09/20/20 11:00 WBC RBC Hgb Hct MCV MCH MCHC RDW Plt Count MPV Neut # (Auto) Lymph # (Auto) [place] # (Auto) Eos # (Auto) Baso # (Auto) Absolute Nucleated RBC Nucleated RBC % D-Dimer < 200.0 L Sodium Potassium Chloride Carbon Dioxide Anion Gap BUN Creatinine Estimated GFR (MDRD) Glucose Calcium Total Bilirubin AST ALT Alkaline Phosphatase Total Protein Albumin Globulin Albumin/Globulin Ratio Lipase Urine Color Urine Clarity Urine pH Ur Specific [place] Urine Protein Urine Glucose (UA) Urine Ketones Urine Occult Blood Urine Nitrite Urine Bilirubin Urine Urobilinogen Ur Leukocyte Esterase Ur Microscopic Review Urine Culture Comments - Rads (name of study) chest Radiology: Prelim report reviewed (Impression: No acute findings nor significant change from the prior exam.), EMP read indepedently, See rad report PD MEDICAL DECISION MAKING - ED course Complexity details: reviewed old records, reviewed results, re-evaluated patient, considered differential, d/w patient ED course: 64-year-old female with a history of emphysema has had stuttering symptoms over the past month and she had some improvement in August with a steroid burst and I suspect she needs that again today. She is given Solu-Medrol here in the emergency department and we have written a prescription for her to get a p rednisone taper. She has no evidence of an infiltrate on her chest x-ray. I was able to talk to the restaurant mgr who is on-call for the patient's restaurant mgr and he recommended administration of a steroid taper. Departure - Departure Disposition: 01 Home, Self Care Clinical Impression: COPD (chronic obstructive pulmonary disease) Qualifiers: COPD type: emphysema Emphysema type: unspecified Qualified Code(s): J43.9 - Emphysema, unspecified Condition: Stable Instructions: ED COPD Flare Follow-Up: Bettie Rangel ARNP, CARAMEL COLORING OPERATOR-C [Primary Care Provider] - Prescriptions: predniSONE [Deltasone] 10 mg PO [id number] #42 tab Azithromycin [Zithromax] 250 mg PO DAILY 5 Days #6 tab Discharge Date/Time: 09/20/20 12:35
--- NOTE | 2020-09-20 10:12 | XRAY Report ---
PROCEDURE: Chest 1 View X-Ray INDICATIONS: Chest pain TECHNIQUE: One view of the chest was acquired. COMPARISON: 09/16/2020 chest radiographs FINDINGS: Surgical changes and devices: Median sternotomy changes again noted Lungs and pleura: No pleural effusions or pneumothorax. Similar streaky linear atelectasis in the francia ng bases. No focal consolidation or acute air space opacity identified. Mediastinum: Mediastinal contours appear normal. Heart size is normal. Bones and chest wall: No suspicious bony lesions. Overlying soft tissues appear unremarkable. IMPRESSION: No acute finding nor significant change from the prior exam. Reviewed by: Prasanna Lynn MD on 09/20/2020 9:11 AM [facility] Approved by: Prasanna Lynn MD on 09/20/2020 9:11 AM [facility] Station ID: [id number]
[2020-09-20 10:16] LABS: BASOPHILS % (AUTO) 0.4 %; EOSINOPHILS # (AUTO) 0.1 10^3/uL (0.0-0.7); EOSINOPHILS % (AUTO) 1.7 %; HGB - HEMOGLOBIN 13.4 g/dL (12.0-16.0); LYMPHOCYTES # (AUTO) 2.1 10^3/uL (1.5-3.5); LYMPHOCYTES % (AUTO) 27.5 %; MEAN CORPUSCULAR HEMOGLOBIN 30.1 pg (27.0-31.0); MEAN CORPUSCULAR HGB CONC 32.5 g/dL (32.0-36.0); MEAN CORPUSCULAR VOLUME 92.6 fL (81.0-99.0); MEAN PLATELET VOLUME 10.3 fL (7.9-10.8); MONOCYTES # (AUTO) 0.5 10^3/uL (0.0-1.0); MONOCYTES % (AUTO) 6.3 %; NEUTROPHILS # (AUTO) 4.8 10^3/uL (1.5-6.6); NEUTROPHILS % (AUTO) 63.7 %; PLT - PLATELET COUNT 329 10^3/uL (130-450); RED BLOOD COUNT 4.45 10^6/uL (4.20-5.40); RED CELL DISTRIBUTION WIDTH 13.2 % (12.0-15.0); WHITE BLOOD COUNT 7.5 x10^3/uL (4.8-10.8)
[2020-09-20 10:29] LABS: ALBUMIN 4.1 g/dL (3.2-5.5); ALBUMIN/GLOBULIN RATIO 1.4 (1.0-2.2); BILIRUBIN,TOTAL 0.6 mg/dL (0.2-1.0); CALCIUM 10.1 mg/dL (8.5-10.3); CREATININE 1.1 mg/dL (0.4-1.0)
[2020-09-20 10:44] LABS: BILIRUBIN,URINE NEGATIVE (NEGATIVE); GLUCOSE, URINE (UA) NEGATIVE (NEGATIVE); KETONES,URINE (UA) NEGATIVE (NEGATIVE); LEUKOCYTE ESTERASE, URINE NEGATIVE (NEGATIVE); NITRITE,URINE NEGATIVE (NEGATIVE); OCCULT BLOOD,URINE NEGATIVE (NEGATIVE); PROTEIN,URINE NEGATIVE (NEGATIVE); UROBILINOGEN,URINE 0.2 (NORMAL) E.U./dL (NORMAL)
[2020-09-20 10:50] LABS: CLARITY,URINE CLEAR (CLEAR)
[2020-09-20 12:27] VITALS: BP 139/76
== END 2020-09-20 12:35 | disposition home or self-care (01) ==
LOC: EDUNIT# → ED 09:16
DX: J43.9 Emphysema, unspecified (principal); I11.0 Hypertensive heart disease with heart failure; I50.9 Heart failure, unspecified; E11.9 Type 2 diabetes mellitus without complications; Z79.84 Long term (current) use of oral hypoglycemic drugs
CPT/HCPCS: 36415; 80053; 81001; 81003; 83690; 85025; 85379; 87086; 96374; 99284

== ENCOUNTER 2020-11-25 15:18 | Outpatient (CLI) | payer MEDICARE, MEDICAID | END 2020-11-25 15:19 | disposition critical access hospital (66) | LOC: EMS 15:18 | DX: R06.02 Shortness of breath (principal) | CPT/HCPCS: A0425; A0429 ==

== ENCOUNTER 2020-11-25 15:40 | Emergency (ER) | payer MEDICARE, MEDICAID ==
--- OUTSIDE RECORDS SUMMARY | 2020-11-25 16:05 | EXTERNAL MEDICAL SUMMARY RPT | Continuity of Care Document ---
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
[2020-11-25 16:24] LABS: BASOPHILS % (AUTO) 0.5 %; EOSINOPHILS # (AUTO) 0.3 10^3/uL (0.0-0.7); EOSINOPHILS % (AUTO) 3.8 %; HCT - HEMATOCRIT 38.4 % (37.0-47.0); HGB - HEMOGLOBIN 12.4 g/dL (12.0-16.0); LYMPHOCYTES % (AUTO) 24.1 %; MEAN CORPUSCULAR HGB CONC 32.3 g/dL (32.0-36.0); MEAN CORPUSCULAR VOLUME 92.8 fL (81.0-99.0); MONOCYTES # (AUTO) 0.5 10^3/uL (0.0-1.0); MONOCYTES % (AUTO) 6.3 %; NEUTROPHILS # (AUTO) 5.3 10^3/uL (1.5-6.6); NEUTROPHILS % (AUTO) 64.9 %; PLT - PLATELET COUNT 337 10^3/uL (130-450); RED BLOOD COUNT 4.14 10^6/uL (4.20-5.40); RED CELL DISTRIBUTION WIDTH 13.1 % (12.0-15.0); WHITE BLOOD COUNT 8.1 x10^3/uL (4.8-10.8)
[2020-11-25 16:36] LABS: ALBUMIN 3.6 g/dL (3.2-5.5); ALBUMIN/GLOBULIN RATIO 1.2 (1.0-2.2); BILIRUBIN,TOTAL 0.7 mg/dL (0.2-1.0); CALCIUM 9.7 mg/dL (8.5-10.3); CREATININE 0.8 mg/dL (0.4-1.0); POTASSIUM 4.1 mmol/L (3.5-5.0); TOTAL PROTEIN 6.7 g/dL (6.7-8.2)
--- NOTE | 2020-11-25 16:53 | XRAY Report ---
PROCEDURE: Chest 1 View X-Ray INDICATIONS: Chest pain TECHNIQUE: One view of the chest was acquired. COMPARISON: 09/20/2020 FINDINGS: Surgical changes and devices: None. Lungs and pleura: Trace right-sided pleural effusion. Patchy opacities in the right lung. Mediastinum: Mediastinal contours appear normal. Heart size is normal. Bones and chest wall: No suspicious bony lesions. Overlying soft tissues appear unremarkable. IMPRESSION: 1. Trace right-sided pleural effusion. 2. Patchy right lung opacities which could represent atelectasis or pneumonia. Reviewed by: Gerri Lehman MD, PhD on 11/25/2020 4:52 PM PDT Approved by: Gerri Lehman MD, PhD on 11/25/2020 4:52 PM PDT Station ID: [id number]
[2020-11-25] MEDS ORDERED: IPRATROPIUM/ALBUTEROL 3 ML NEB INH STA (17:36)
[2020-11-25] MEDS ORDERED: cefTRIAXone 1 GM VIAL IVP STA (17:36)
[2020-11-25] MEDS ORDERED: AZITHROMYCIN INJ 500 MG in SODIUM CHLORIDE 0.9% 250 ML IV STA (17:37)
[2020-11-25] MEDS ORDERED: ONDANSETRON 4 MG/2 ML VIAL IVP STA (18:28)
--- NOTE | 2020-11-25 18:40 | ED Physician Documentation ---
PD HPI DYSPNEA - Stated complaint Stated Complaint: SOA - Chief complaint Chief Complaint: Resp - History obtained from History obtained from: Patient - History of Present Illness Timing - onset: Today, How many days ago (has had some dyspnea and episodes of wheezing/ more short of breath, since her lung surgery this past Saturday. She was in hospital until yesterday and discharged on home oxygen.) Timing - onset during: Light activity Timing - details: Abrupt onset (has had breathing worse at times since surgery.), Now resolved, Intermittant Associated symptoms: Cough (with occasional productivity.), Wheezing, Chest pain / discomfort (right side since surgery). No: Fever, Palpitations, Bilateral edema Similar symptoms before: Diagnosis (Emphysema in the past and recent right lung surgery.) Recently seen: Admitted, Surgery (Patient was at [facility] for right upper lobectomy for tumor on this past Saturday which was 4 days ago. She was discharged yesterday. She was having episodes of dyspnea in the hospital cleared with nebs. Had an episode today at home not cleared with a neb.) Review of Systems Constitutional: denies: Fever, Chills Nose: denies: Rhinorrhea / runny nose, Congestion Throat: denies: Sore throat Cardiac: reports: Chest pain / pressure (at surgical area right chest.). denies: Palpitations, Pedal edema, Calf pain Respiratory: reports: Dyspnea, Cough, Wheezing GI: denies: Abdominal Pain, Nausea, Vomiting, Diarrhea, Bloody / black stool Musculoskeletal: reports: Extremity swelling (both legs, left more than right) Neurologic: denies: Focal weakness, Numbness, Near syncope, Altered mental status PD PAST MEDICAL HISTORY - Past Medical History Cardiovascular: Congestive heart failure, Hypertension, High cholesterol, Coronary artery disease, Angina, Murmur, Valve disorder Respiratory: COPD, Emphysema, Shortness of breath, Other Neuro: Headaches, Peripheral neuropathy Endocrine/Autoimmune: Type 2 diabetes GI: GERD 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 : Incontinence HEENT: Chronic vision loss, Chronic sinusitis Psych: Depression, Anxiety, Bipolar disorder Musculoskeletal: Osteoarthritis Derm: None - Past Surgical History Past Surgical History: Yes General: 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 /FORM PRESSER: 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 Cardiovascular: Valve replacement HEENT: Tonsil/Adenoidectomy - Present Medications Home Medications: Ambulatory Orders Medication Instructions Recorded Confirmed Aspirin [Aspirin EC] 81 mg PO DAILY 02/25/19 09/20/20 Gabapentin 300 mg PO TID PRN 02/25/19 09/20/20 Ipratropium/Albuterol [Duoneb] 3 ml INH BID 02/25/19 09/20/20 Montelukast [Singulair] 10 mg PO QPM 02/25/19 09/20/20 metFORMIN [Glucophage] 500 mg PO BID 02/25/19 09/20/20 Simvastatin 10 mg PO DAILY #30 tablet 02/26/19 09/20/20 Fluticasone/Umeclidin/Vilanter 2 puffs IH Q4HR PRN 08/13/20 09/20/20 [Trelegy Ellipta 200-62.5-25] Albuterol Sulf [Ventolin Hfa 1 - 2 puffs INH Q4HR PRN #1 inhaler 08/22/20 09/20/20 Inhaler] Metoprolol Tartrate [Lopressor] 12.5 mg PO BID 08/22/20 09/20/20 Meloxicam [Mobic] 7.5 mg PO BID PRN #20 tablet 09/14/20 09/20/20 Bumetanide [Bumex] 3 tab PO DAILY 09/16/20 09/20/20 Azithromycin [Zithromax] 250 mg PO DAILY 5 Days #6 tab 09/20/20 hydrOXYzine HCL [Hydroxyzine HCl] 25 mg PO QID 09/20/20 09/20/20 predniSONE [Deltasone] 10 mg PO [id number] #42 tab 09/20/20 Cefuroxime Axetil [Cefuroxime] 500 mg PO BID #10 tablet 11/25/20 dexAMETHasone [Decadron] 4 mg PO DAILY #5 tablet 11/25/20 - Allergies Allergies/Adverse Reactions: Allergies Allergy/AdvReac Type Severity Reaction Status Date / Time levofloxacin [From Levaquin] Allergy Hives Verified 11/25/20 16:13 oxycodone Allergy Itching Verified 11/25/20 16:13 tramadol AdvReac Itching Verified 11/25/20 16:13 - Social History Does the pt smoke?: No Smoking Status: Never smoker Does the pt drink ETOH?: Yes Does the pt have substance abuse?: No - Immunizations Immunizations are current?: Yes - POLST Patient has POLST: No POLST Status: Full Code PD ED PE NORMAL - Vitals Vital signs reviewed: Yes - General General: Alert and oriented X 3, Well developed/nourished - HEENT HEENT: Pharynx benign - Neck Neck: Supple, no meningeal sign, No adenopathy - Cardiac Cardiac: RRR, No murmur - Respiratory Respiratory: No: Clear bilaterally (some coarseness right apex and faint crackles right base. ) - Abdomen Abdomen: Soft, Non tender - Derm Derm: Normal color, Warm and dry - Extremities Extremities: No tenderness to palpate, Normal ROM s pain, No calf tenderness / cord, Other (edema in both lower legs/ankles. Not tender. ) - Neuro Neuro: Alert and oriented X 3, No motor deficit, Normal speech Results - Vitals Vitals: Vital Signs - 24 hr 11/26/20 19:03 Heart Rate 89 Respiratory 20 Rate Oxygen O2 Source Nasal cannula Oxygen Flow Rate 2 - Labs Labs: Laboratory Tests 11/25/20 11/25/20 11/25/20 16:15 16:15 16:15 WBC 8.1 RBC 4.14 L Hgb 12.4 Hct 38.4 MCV 92.8 MCH 30.0 MCHC 32.3 RDW 13.1 Plt Count 337 MPV 10.0 Neut # (Auto) 5.3 Lymph # (Auto) 2.0 [place] # (Auto) 0.5 Eos # (Auto) 0.3 Baso # (Auto) 0.0 Absolute Nucleated RBC 0.00 Nucleated RBC % 0.0 Sodium 140 Potassium 4.1 Chloride 97 L Carbon Dioxide 34 H Anion Gap 9.0 BUN 17 Creatinine 0.8 Estimated GFR (MDRD) 72 L Glucose 113 H Calcium 9.7 Total Bilirubin 0.7 AST 24 ALT 27 Alkaline Phosphatase 68 Troponin I High Sens 5.4 Total Protein 6.7 Albumin 3.6 Globulin 3.1 Albumin/Globulin Ratio 1.2 Lipase 25 - Rads (name of study) chest xray Radiology: Prelim report reviewed (Right upper lobe surgical changes. Small right effusion. Infiltrate right lower field. ), See rad report CT chest Radiology: Prelim report reviewed (No PE. Right effusion. Minimal apical PTX likely c/w post-operative lobectomy. ), Discussed with rads, See rad report PD MEDICAL DECISION MAKING - ED course Complexity details: reviewed results (some effusion on right and trace PTX, seen reasonable post op few days upper lobectomy. Concern for infiltrate. ), re- evaluated patient (The patient is breathing more comfortably after another couple of nebs here. Saturations are 95% on 2 L which she is on at home. I wou ld consider adding antibiotic and steroid for concern of early infection given the x-ray reading and report of sputum production. She can increase her Bumex.), considered differential, d/w patient, d/w car sales consultant (Talked with Dr. Weber who is on-call for Dr. Snider. He did feel adding steroids is okay at this point postoperative and agreed with some antibiotics as well. He did not feel the patient needed transfer for admission given her improved status. He asked that we do angio of the chest for PE) Departure - Departure Disposition: 01 Home, Self Care Clinical Impression: Asthma exacerbation in COPD, Status post partial lobectomy of lung, Bilateral edema of lower extremity, Pleural effusion, right Dyspnea Qualifiers: Dyspnea type: shortness of breath Qualified Code(s): R06.02 - Shortness of breath Condition: Stable Record reviewed to determine appropriate education?: Yes Instructions: ED Dyspnea Shortness of Breath Follow-Up: Trip Odonnell MD [Primary Care Provider] - TAZ SNIDER MD [Physician No Access] - Prescriptions: Cefuroxime Axetil [Cefuroxime] 500 mg PO BID #10 tablet dexAMETHasone [Decadron] 4 mg PO DAILY #5 tablet Comments: Continue your oxygen at home and your nebulizer 4 times a day. Add Cefuroxime antibiotic for concern of early infectious process. Add Decadron steroid daily for 5 days. You can increase your Bumex at home to a second dose just after lunchtime for the next few days. Contact your Vocational Evaluator for further advise if not improved well over the next few days. Return to ER if worsening. Discharge Date/Time: 11/25/20 22:55
[2020-11-25] MEDS ORDERED: BUMETANIDE 1 MG/4 ML VIAL IVP STA (18:44)
[2020-11-25] MEDS ORDERED: HYDROmorphone 1 MG/ML CARPUJECT IVP STA (19:08)
[2020-11-25] MEDS ORDERED: ALBUTEROL NEB 2.5 MG/3 ML INH ONE (19:38)
[2020-11-25] MEDS ORDERED: IOPAMIDOL-300 100 ML VIAL ONE (20:01)
[2020-11-25] MEDS ORDERED: IOPAMIDOL-300 100 ML VIAL IVP ONE (20:53)
--- NOTE | 2020-11-25 21:14 | CT Report ---
PROCEDURE: ANGIO CHEST W/WO INDICATIONS: post op RUL lobectomy 4 days, dyspnea, eval for PE CONTRAST: IV CONTRAST: Isovue 300 ml: 80 PO CONTRAST: *NO PO CONTRAST TECHNIQUE: After the administration of intravenous contrast, 2 mm thick sections acquired from the pulmonary api luisito to the posterior costophrenic angles. 3-dimensional maximum intensity projection (MIP) coronal a nd sagittal reformats were then acquired through the thorax. For radiation dose reduction, the follow ing was used: automated exposure control, adjustment of mA and/or kV according to patient size. COMPARISON: Multiple prior CXR including 11/25/2020, 09/20/2020. CT pulmonary angiogram 08/13/2020. FINDINGS: Image quality: Excellent. Pulmonary arteries: Pulmonary arteries are normal in size, and demonstrate no intraluminal filling d efects to suggest pulmonary embolism. Lungs and pleura: Findings of partial right upper lobe lobectomy. Platelike airspace opacity at the dependent right upper lobe likely postsurgical change and atelectasis. Previously seen lesion in the right upper lobe is surgically removed or secured. Mild to moderate emphysematous change. Pleural api yuliya scarring. Small right pneumothorax. No pneumothorax in the left. Trace right pleural fluid. Airwa ys are clear. Mediastinum: Post median sternotomy and aortic valve replacement. Heart size is normal, without shad cardial effusion. No mediastinal or hilar adenopathy. Thoracic aorta is normal in caliber and enhan cement. Esophagus is normal in caliber, without hiatal hernia. Bones and chest wall: Right lateral chest wall subcutaneous emphysema, mild. No chest tube. No suspi cious bony lesions. Ribs and thoracic spine appear intact throughout. The thyroid is normal. No ax illary or supraclavicular adenopathy. Abdomen: Gallbladder is distended. Visualized upper abdominal solid organs appear normal in the lukas y arterial phase of enhancement. IMPRESSION: 1. No pulmonary embolism. 2. Trace postoperative right pneumothorax. Mild right subcutaneous emphysema. 3. Mild airspace opacity in the right upper lobe. Suspect atelectasis and/or scarring over pneumonia. Results were communicated to Dr. Samy Fields at 11/25/2020 9:08 PM PDT. Reviewed by: Shay Tobias MD on 11/25/2020 9:13 PM PDT Approved by: Shay Tobias MD on 11/25/2020 9:13 PM PDT Station ID: [id number]
[2020-11-25 21:34] VITALS: BP 140/64
[2020-11-25] MEDS ORDERED: ALBUTEROL NEB 2.5 MG/3 ML INH STA (22:26)
== END 2020-11-25 22:55 | disposition home or self-care (01) ==
LOC: EDUNIT# → ED 15:40
DX: J44.1 Chronic obstructive pulmonary disease with (acute) exacerbation (principal); Z90.2 Acquired absence of lung [part of]; R60.0 Localized edema; J90 Pleural effusion, not elsewhere classified; I10 Essential (primary) hypertension; E11.42 Type 2 diabetes mellitus with diabetic polyneuropathy; Z79.84 Long term (current) use of oral hypoglycemic drugs; Z95.2 Presence of prosthetic heart valve; Z79.82 Long term (current) use of aspirin
CPT/HCPCS: 36415; 71045; 71275; 80053; 83690; 84484; 85025; 93005; 94640; 96365; 96366; 96375; 99284; 99285; J1170; Q9967

== ENCOUNTER 2020-11-28 22:24 | Outpatient (CLI) | payer MEDICARE, MEDICAID | END 2020-11-28 22:25 | disposition short-term general hospital (02) | LOC: EMS 22:24 | DX: R06.09 Other forms of dyspnea (principal) | CPT/HCPCS: A0425; A0429 ==

== ENCOUNTER 2020-12-26 08:00 | Outpatient (CLI) | payer MEDICARE, MEDICAID ==
[2020-12-26 12:16] LABS: BASOPHILS % (AUTO) 0.5 %; EOSINOPHILS # (AUTO) 0.3 10^3/uL (0.0-0.7); EOSINOPHILS % (AUTO) 3.8 %; HCT - HEMATOCRIT 37.1 % (37.0-47.0); HGB - HEMOGLOBIN 11.5 g/dL (12.0-16.0); LYMPHOCYTES # (AUTO) 2.6 10^3/uL (1.5-3.5); MEAN CORPUSCULAR VOLUME 93.5 fL (81.0-99.0); MEAN PLATELET VOLUME 10.4 fL (7.9-10.8); MONOCYTES # (AUTO) 0.5 10^3/uL (0.0-1.0); MONOCYTES % (AUTO) 7.7 %; NEUTROPHILS # (AUTO) 3.2 10^3/uL (1.5-6.6); NEUTROPHILS % (AUTO) 48.7 %; PLT - PLATELET COUNT 275 10^3/uL (130-450); RED BLOOD COUNT 3.97 10^6/uL (4.20-5.40); RED CELL DISTRIBUTION WIDTH 12.8 % (12.0-15.0); WHITE BLOOD COUNT 6.6 x10^3/uL (4.8-10.8)
[2020-12-26 12:35] LABS: ALBUMIN 4.1 g/dL (3.2-5.5); ALBUMIN/GLOBULIN RATIO 1.6 (1.0-2.2); BILIRUBIN,TOTAL 0.7 mg/dL (0.2-1.0); CALCIUM 9.4 mg/dL (8.5-10.3); CREATININE 1.1 mg/dL (0.4-1.0); POTASSIUM 3.8 mmol/L (3.5-5.0); TOTAL PROTEIN 6.7 g/dL (6.7-8.2)
[2020-12-26 12:46] LABS: ESTIMATED AVERAGE GLUCOSE 126 mg/dL (70-100)
[2020-12-26 12:47] LABS: FREE T3 3.69 pg/mL (2.5-3.9); THYROID STIMULATING HORMONE 1.85 uIU/mL (0.34-5.60)
[2020-12-26 12:49] LABS: CREATININE,URINE 35.1 mg/dL; FREE T4 (FREE THYROXINE) 0.94 ng/dL (0.58-1.64); MICROALBUMIN,URINE < 0.2 mg/dL (0-300.0)
== END 2020-12-26 23:59 | disposition home or self-care (01) ==
LOC: LAB.WCP 08:00
PROVIDERS: ATTEND Family Medicine
DX: E11.9 Type 2 diabetes mellitus without complications (principal); Z95.2 Presence of prosthetic heart valve; I10 Essential (primary) hypertension; J44.9 Chronic obstructive pulmonary disease, unspecified
CPT/HCPCS: 36415; 80053; 82043; 82570; 83036; 84439; 84443; 84481; 85025

== ENCOUNTER 2020-12-29 23:09 | Outpatient (CLI) | payer MEDICARE, MEDICAID | END 2020-12-29 23:10 | disposition critical access hospital (66) | LOC: EMS 23:09 | DX: R06.09 Other forms of dyspnea (principal) | CPT/HCPCS: A0425; A0429 ==

== ENCOUNTER 2020-12-29 23:28 | Emergency (ER) | payer MEDICARE, MEDICAID ==
--- NOTE | 2020-12-29 23:31 | ED Physician Documentation ---
PD HPI DYSPNEA - Stated complaint Stated Complaint: SOA - History obtained from History obtained from: Patient, EMS - History of Present Illness Timing - onset: How many days ago (2) Timing - duration: Days Timing - details: Gradual onset Pain level max: 0 Pain level now: 0 Improved by: O2, Inhaler/neb, Rest Worsened by: Laying flat Associated symptoms: Cough, Wheezing. No: Fever, Hemoptysis, Chest pain / discomfort, Palpitations, Bilateral edema, Unilateral edema Similar symptoms before: Diagnosis (COPD) - Additional information Additional information: Patient is brought in by ambulance for two days of dyspnea and orthopnea. She has a history of COPD. Last month, she had a right upper lobectomy. She had subsequent admission to another hospital for a lung infection. She says today she used her MDI approximately 10 times, and took five duonebs over the course of the day. EMS reports her blood sugar was 218. Her pulse ox en route was 98%, but only when supplemental oxygen increased to 4liters (usually uses 1-1.5 liters at home). By the time she arrives to ED, she reports feeling improvement Review of Systems Constitutional: reports: Reviewed and negative Cardiac: reports: Pedal edema (mild, bilateral) Respiratory: reports: Dyspnea. 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 : Incontinence HEENT: Chronic vision loss, Chronic sinusitis Psych: Depression, Anxiety, Bipolar disorder Musculoskeletal: Osteoarthritis Derm: None - Past Surgical History Past Surgical History: Yes General: 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 /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5-25] Albuterol Sulf [Ventolin Hfa 1 - 2 puffs INH Q4HR PRN #1 inhaler 08/22/20 09/20/20 Inhaler] Metoprolol Tartrate [Lopressor] 12.5 mg PO BID 08/22/20 09/20/20 Meloxicam [Mobic] 7.5 mg PO BID PRN #20 tablet 09/14/20 09/20/20 Bumetanide [Bumex] 3 tab PO DAILY 09/16/20 09/20/20 Azithromycin [Zithromax] 250 mg PO DAILY 5 Days #6 tab 09/20/20 hydrOXYzine HCL [Hydroxyzine HCl] 25 mg PO QID 09/20/20 09/20/20 predniSONE [Deltasone] 10 mg PO [id number] #42 tab 09/20/20 Cefuroxime Axetil [Cefuroxime] 500 mg PO BID #10 tablet 11/25/20 dexAMETHasone [Decadron] 4 mg PO DAILY #5 tablet 11/25/20 - Allergies Allergies/Adverse Reactions: Allergies Allergy/AdvReac Type Severity Reaction Status Date / Time levofloxacin [From Levaquin] Allergy Hives Verified 12/29/20 23:58 oxycodone Allergy Itching Verified 12/29/20 23:58 tramadol AdvReac Itching Verified 12/29/20 23:58 - Social History Does the pt smoke?: No Smoking Status: Never smoker Does the pt drink ETOH?: Yes Does the pt have substance abuse?: No - Immunizations Immunizations are current?: Yes - POLST Patient has POLST: No POLST Status: Full Code PD ED PE NORMAL - Vitals Vital signs reviewed: Yes - General General: Alert and oriented X 3, No acute distress, Well developed/nourished - HEENT HEENT: Moist mucous membranes - Neck Neck: Supple, no meningeal sign - Cardiac Cardiac: RRR, No gallop, No rub - Respiratory Respiratory: No respiratory distress - Abdomen Abdomen: Soft, Non tender - Derm Derm: Normal color, Warm and dry - Neuro Neuro: Alert and oriented X 3 PD ED PE EXPANDED - Cardiac Cardiac: Murmur Present (1/6 CHARBEL cardiac base) - Respiratory Respiratory: Decreased breath sounds (mildly diminished breath sounds bilaterally without wheeze, rales, rhonchi) Results - Vitals Vitals: Vital Signs - 24 hr 12/30/20 12/30/20 12/30/20 02:35 03:20 03:30 Heart Rate 75 79 78 Respiratory 18 17 16 Rate Blood Pressure 139/77 H 107/87 H 125/75 O2 Saturation 98 100 99 Oxygen O2 Source Room air Oxygen Flow Rate 4 - EKG (time done) No standard instances Rate: Rate (enter#) (83) Rhythm: NSR [place]: Normal Intervals: Normal [place] QRS: Normal Ischemia: Normal ST segments - Labs Labs: Laboratory Tests 12/29/20 12/29/20 23:59 23:59 WBC 8.4 RBC 3.98 L Hgb 11.8 L Hct 36.5 L MCV 91.7 MCH 29.6 MCHC 32.3 RDW 12.5 Plt Count 277 MPV 9.8 Neut # (Auto) 6.9 H Lymph # (Auto) 1.1 L [place] # (Auto) 0.3 Eos # (Auto) 0.0 Baso # (Auto) 0.0 Absolute Nucleated RBC 0.00 Nucleated RBC % 0.0 Sodium 138 Potassium 3.8 Chloride 102 Carbon Dioxide 26 Anion Gap 10.0 BUN 13 Creatinine 0.9 Estimated GFR (MDRD) 62 L Glucose 205 H Calcium 9.3 Total Bilirubin 0.4 AST 17 ALT 24 Alkaline Phosphatase 77 Total Protein 6.9 Albumin 4.1 Globulin 2.8 Albumin/Globulin Ratio 1.5 Lipase 28 - Rads (name of study) CXR Radiology: Prelim report reviewed, See rad report PD MEDICAL DECISION MAKING - ED course Complexity details: reviewed results, re-evaluated patient, considered differential, d/w patient Departure - Departure Disposition: 01 Home, Self Care Clinical Impression: Shortness of breath Condition: Good Instructions: ED Dyspnea Shortness of Breath Follow-Up: Trip Odonnell MD [Primary Care Provider] - Discharge Date/Time: 12/30/20 04:09
[2020-12-29] MEDS ORDERED: CHERRY SYRUP 10 ML UDC PO ONE (23:49)
[2020-12-29] MEDS ORDERED: DEXAMETHASONE 10 MG/ML VIAL PO STA (23:49)
--- OUTSIDE RECORDS SUMMARY | 2020-12-29 23:52 | EXTERNAL MEDICAL SUMMARY RPT | Continuity of Care Document ---
:1955 Demographics Phone Unavailable Preferred Language Unknown Marital Status Unknown Spiritism Affiliation Unknown Race Unknown Ethnic Group Unknown Author Organization [place] Address [address] [phone] Phone Problems date description facility [id number] Malignant neoplasm of upper lobe, right [facility] bronchus or lung [id number] Encounter for other preprocedural [facility] examination
[2020-12-30 00:06] LABS: BASOPHILS % (AUTO) 0.2 %; EOSINOPHILS % (AUTO) 0.5 %; HCT - HEMATOCRIT 36.5 % (37.0-47.0); HGB - HEMOGLOBIN 11.8 g/dL (12.0-16.0); LYMPHOCYTES # (AUTO) 1.1 10^3/uL (1.5-3.5); LYMPHOCYTES % (AUTO) 12.7 %; MEAN CORPUSCULAR HEMOGLOBIN 29.6 pg (27.0-31.0); MEAN CORPUSCULAR HGB CONC 32.3 g/dL (32.0-36.0); MEAN CORPUSCULAR VOLUME 91.7 fL (81.0-99.0); MEAN PLATELET VOLUME 9.8 fL (7.9-10.8); MONOCYTES # (AUTO) 0.3 10^3/uL (0.0-1.0); MONOCYTES % (AUTO) 3.6 %; NEUTROPHILS # (AUTO) 6.9 10^3/uL (1.5-6.6); NEUTROPHILS % (AUTO) 82.6 %; PLT - PLATELET COUNT 277 10^3/uL (130-450); RED BLOOD COUNT 3.98 10^6/uL (4.20-5.40); RED CELL DISTRIBUTION WIDTH 12.5 % (12.0-15.0); WHITE BLOOD COUNT 8.4 x10^3/uL (4.8-10.8)
[2020-12-30 00:19] LABS: ALBUMIN 4.1 g/dL (3.2-5.5); ALBUMIN/GLOBULIN RATIO 1.5 (1.0-2.2); BILIRUBIN,TOTAL 0.4 mg/dL (0.2-1.0); CALCIUM 9.3 mg/dL (8.5-10.3); CREATININE 0.9 mg/dL (0.4-1.0); POTASSIUM 3.8 mmol/L (3.5-5.0); TOTAL PROTEIN 6.9 g/dL (6.7-8.2)
[2020-12-30 03:47] VITALS: BP 125/75
--- NOTE | 2020-12-30 08:26 | XRAY Report ---
PROCEDURE: Chest 2 View X-Ray INDICATIONS: dyspnea TECHNIQUE: 2 view(s) of the chest. COMPARISON: Prior chest radiographs dated 11/25/2020, 09/20/2020 and 09/16/2020. FINDINGS: Surgical changes and devices: Median sternotomy wires are seen.. Lungs and pleura: Again noted are postsurgical changes from prior right lung lobectomy. Bibasilar ate lectasis are again seen. There is suggestion of trace right pleural effusion extending to minor fissu re. No left-sided pleural effusion. No pneumothorax. Mediastinum: Mediastinal contours are normal. Heart size is normal. Bones and chest wall: No suspicious bony abnormalities. Soft tissues appear unremarkable. IMPRESSION: Stable post surgical changes from prior right lung lobectomy with right basilar atelecta sis. Trace right pleural effusion extending to metaphyseal fracture. Minimal left basilar atelectasis . No pneumothorax. No significant discrepancies from preliminary reading. Reviewed by: Vincent Hutchins MD on 12/30/2020 8:25 AM PDT Approved by: Vincent Hutchins MD on 12/30/2020 8:25 AM PDT Station ID: [id number]
== END 2020-12-30 04:09 | disposition home or self-care (01) ==
LOC: ED 23:28 → SUPCPDRO 23:28 → ED 12-30 04:09
DX: R06.02 Shortness of breath (principal); Z90.2 Acquired absence of lung [part of]; J98.11 Atelectasis; J43.9 Emphysema, unspecified; Z95.2 Presence of prosthetic heart valve; R01.1 Cardiac murmur, unspecified; I10 Essential (primary) hypertension; E11.42 Type 2 diabetes mellitus with diabetic polyneuropathy; Z79.84 Long term (current) use of oral hypoglycemic drugs; Z79.82 Long term (current) use of aspirin
CPT/HCPCS: 36415; 71046; 80053; 83690; 85025; 93005; 99284; A9270

== ENCOUNTER 2021-01-04 20:54 | Outpatient (CLI) | payer MEDICARE, MEDICAID | END 2021-01-04 20:55 | disposition critical access hospital (66) | LOC: EMS 20:54 | DX: R06.02 Shortness of breath (principal); R07.89 Other chest pain | CPT/HCPCS: A0425; A0429 ==

== ENCOUNTER 2021-01-04 21:15 | Emergency (ER) | payer MEDICARE, MEDICAID ==
--- OUTSIDE RECORDS SUMMARY | 2021-01-04 21:36 | EXTERNAL MEDICAL SUMMARY RPT | Continuity of Care Document ---
:1955 Demographics Phone Unavailable Preferred Language Unknown Marital Status Unknown Catholic Affiliation Unknown Race Unknown Ethnic Group Unknown Author Organization [facility] Address [address] [phone] Phone Allergies Encounters Medications Problems date description facility [id number] Malignant neoplasm of upper lobe, right [facility] bronchus or lung [id number] Encounter for other preprocedural [facility] examination Results
--- NOTE | 2021-01-04 23:21 | ED Physician Documentation ---
PD HPI DYSPNEA - Stated complaint Stated Complaint: SOA - Chief complaint Chief Complaint: Resp - History obtained from History obtained from: Patient, EMS - History of Present Illness Timing - onset: Today Timing - onset during: Light activity Timing - details: Gradual onset Pain level max: 3 Pain level now: 0 Improved by: O2, Rest Worsened by: Exertion (dyspnea) Associated symptoms: Chest pain / discomfort, Bilateral edema. No: Fever, Cough, Wheezing, Palpitations Recently seen: Emergency Dept (T+R 6 days ago from this ED for similar symptoms) - Additional information Additional information: Patient was brought in by ambulance. Patient complains of shortness of breath since earlier today when she was undergoing physical therapy. She also has had episodic chest pain during the day, left-sided radiating to left side of neck. She denies current chest pain. jessi says that she followed up with her primary care provider since being seen six days ago in this emergency department. She is scheduled to have an echo and stress test in the coming weeks. Review of Systems Constitutional: reports: Reviewed and negative Cardiac: reports: Chest pain / pressure, Pedal edema. denies: Palpitations Respiratory: reports: Dyspnea. 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: None : Incontinence HEENT: Chronic vision loss, Chronic sinusitis Psych: Depression, Anxiety, Bipolar disorder Musculoskeletal: Osteoarthritis Derm: None - Past Surgical History Past Surgical History: Yes General: 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 /LEARNING FACILITATOR: 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 Cardiovascular: Valve replacement HEENT: Tonsil/Adenoidectomy - Present Medications Home Medications: Ambulatory Orders Medication Instructions Recorded Confirmed Aspirin [Aspirin EC] 81 mg PO DAILY 02/25/19 09/20/20 Gabapentin 300 mg PO TID PRN 02/25/19 09/20/20 Ipratropium/Albuterol [Duoneb] 3 ml INH BID 02/25/19 09/20/20 Montelukast [Singulair] 10 mg PO QPM 02/25/19 09/20/20 metFORMIN [Glucophage] 500 mg PO BID 02/25/19 09/20/20 Simvastatin 10 mg PO DAILY #30 tablet 02/26/19 09/20/20 Fluticasone/Umeclidin/Vilanter 2 puffs IH Q4HR PRN 08/13/20 09/20/20 [Trelegy Ellipta 200-62.5-25] Albuterol Sulf [Ventolin Hfa 1 - 2 puffs INH Q4HR PRN #1 inhaler 08/22/20 09/20/20 Inhaler] Metoprolol Tartrate [Lopressor] 12.5 mg PO BID 08/22/20 09/20/20 Meloxicam [Mobic] 7.5 mg PO BID PRN #20 tablet 09/14/20 09/20/20 Bumetanide [Bumex] 3 tab PO DAILY 09/16/20 09/20/20 Azithromycin [Zithromax] 250 mg PO DAILY 5 Days #6 tab 09/20/20 hydrOXYzine HCL [Hydroxyzine HCl] 25 mg PO QID 09/20/20 09/20/20 predniSONE [Deltasone] 10 mg PO [id number] #42 tab 09/20/20 Cefuroxime Axetil [Cefuroxime] 500 mg PO BID #10 tablet 11/25/20 dexAMETHasone [Decadron] 4 mg PO DAILY #5 tablet 11/25/20 - Allergies Allergies/Adverse Reactions: Allergies Allergy/AdvReac Type Severity Reaction Status Date / Time levofloxacin [From Levaquin] Allergy Hives Verified 12/29/20 23:58 oxycodone Allergy Itching Verified 12/29/20 23:58 tramadol AdvReac Itching Verified 12/29/20 23:58 - Social History Does the pt smoke?: No Smoking Status: Never smoker Does the pt drink ETOH?: Yes Does the pt have substance abuse?: No - Immunizations Immunizations are current?: Yes - POLST Patient has POLST: No POLST Status: Full Code PD ED PE NORMAL - Vitals Vital signs reviewed: Yes - General General: Alert and oriented X 3, No acute distress, Well developed/nourished - Neck Neck: Supple, no meningeal sign - Cardiac Cardiac: RRR - Respiratory Respiratory: No respiratory distress - Abdomen Abdomen: Soft, Non tender - Derm Derm: Normal color, Warm and dry PD ED PE EXPANDED - Respiratory Respiratory: Decreased breath sounds (bilaterally) - Extremities Extremities: Pedal edema bilateral Results - Vitals Vitals: Oxygen O2 Source Nasal cannula Oxygen Flow Rate 2 - EKG (time done) No standard instances Rate: Rate (enter#) (78) Rhythm: NSR, LAE [place]: LAD Intervals: Normal CT QRS: Normal Ischemia: Normal ST segments - Labs Labs: Laboratory Tests 01/04/21 01/04/21 01/04/21 23:50 23:59 23:59 WBC 13.4 H RBC 4.03 L Hgb 12.2 Hct 37.8 MCV 93.8 MCH 30.3 MCHC 32.3 RDW 12.7 Plt Count 317 MPV 10.2 Neut # (Auto) 11.6 H Lymph # (Auto) 1.3 L Leon # (Auto) 0.4 Eos # (Auto) 0.0 Baso # (Auto) 0.0 Absolute Nucleated RBC 0.00 Nucleated RBC % 0.0 D-Dimer < 200.0 L Sodium 142 Potassium 4.3 Chloride 104 Carbon Dioxide 29 Anion Gap 9.0 BUN 24 H Creatinine 0.8 Estimated GFR (MDRD) 72 L Glucose 157 H Calcium 9.8 Total Bilirubin 0.7 AST 16 ALT 44 Alkaline Phosphatase 75 Troponin I High Sens B-Natriuretic Peptide Total Protein 6.7 Albumin 4.0 Globulin 2.7 Albumin/Globulin Ratio 1.5 Lipase 27 01/04/21 01/04/21 23:59 23:59 WBC RBC Hgb Hct MCV MCH MCHC RDW Plt Count MPV Neut # (Auto) Lymph # (Auto) Leon # (Auto) Eos # (Auto) Baso # (Auto) Absolute Nucleated RBC Nucleated RBC % D-Dimer Sodium Potassium Chloride Carbon Dioxide Anion Gap BUN Creatinine Estimated GFR (MDRD) Glucose Calcium Total Bilirubin AST ALT Alkaline Phosphatase Troponin I High Sens 5.5 B-Natriuretic Peptide 87 Total Protein Albumin Globulin Albumin/Globulin Ratio Lipase PD MEDICAL DECISION MAKING - ED course Complexity details: reviewed old records, reviewed results, re-evaluated patient, considered differential, d/w patient ED course: patient is in no apparent distress during emergency department observation. Her breath sounds are distant bilaterally, and did not improve in aeration after duoneb. However, she had a similar lung exam last week. She has COPD and uses 1 L to 2 L of oxygen all day. Her EKG does not have any acute findings and her blood test are reassuring including a normal high sensitivity troponin and normal BNP. The initial plan was also to get a CT chest angio to assess for possible PE. However, while she was on the CT table about to undergo the study, it was realized her IV was no longer functioning. Two ER nurses made several attempts to restart an IV, but were unsuccessful. Patient was then brought back to the emergency department. I then ordered a D dimer, and this resulted negative. she requests second neb treatment and this is given. tests results d/w patient and she is comfortable with d/c home at this time Departure - Departure Disposition: 01 Home, Self Care Clinical Impression: Dyspnea, Chest pain Condition: Good Instructions: ED Chest Pain Atypical Unkn Cause, ED Dyspnea Shortness of Breath Follow-Up: Trip Odonnell MD [Primary Care Provider] - Discharge Date/Time: 01/05/21 06:36
[2021-01-04] MEDS ORDERED: IPRATROPIUM/ALBUTEROL 3 ML NEB INH STA (23:38)
[2021-01-05 00:26] LABS: BASOPHILS % (AUTO) 0.1 %; EOSINOPHILS % (AUTO) 0.1 %; HCT - HEMATOCRIT 37.8 % (37.0-47.0); HGB - HEMOGLOBIN 12.2 g/dL (12.0-16.0); LYMPHOCYTES # (AUTO) 1.3 10^3/uL (1.5-3.5); MEAN CORPUSCULAR HEMOGLOBIN 30.3 pg (27.0-31.0); MEAN CORPUSCULAR HGB CONC 32.3 g/dL (32.0-36.0); MEAN CORPUSCULAR VOLUME 93.8 fL (81.0-99.0); MEAN PLATELET VOLUME 10.2 fL (7.9-10.8); MONOCYTES # (AUTO) 0.4 10^3/uL (0.0-1.0); MONOCYTES % (AUTO) 2.7 %; NEUTROPHILS # (AUTO) 11.6 10^3/uL (1.5-6.6); NEUTROPHILS % (AUTO) 86.7 %; PLT - PLATELET COUNT 317 10^3/uL (130-450); RED BLOOD COUNT 4.03 10^6/uL (4.20-5.40); RED CELL DISTRIBUTION WIDTH 12.7 % (12.0-15.0); WHITE BLOOD COUNT 13.4 x10^3/uL (4.8-10.8)
[2021-01-05 00:44] LABS: ALBUMIN/GLOBULIN RATIO 1.5 (1.0-2.2); BILIRUBIN,TOTAL 0.7 mg/dL (0.2-1.0); CALCIUM 9.8 mg/dL (8.5-10.3); CREATININE 0.8 mg/dL (0.4-1.0); POTASSIUM 4.3 mmol/L (3.5-5.0); TOTAL PROTEIN 6.7 g/dL (6.7-8.2)
[2021-01-05] MEDS ORDERED: IOVERSOL 320 100 ML VIAL IVP ONE (00:45)
[2021-01-05] MEDS ORDERED: IPRATROPIUM/ALBUTEROL 3 ML NEB INH STA (05:29)
[2021-01-05] MEDS ORDERED: ALBUTEROL NEB 2.5 MG/3 ML INH STA (05:32)
[2021-01-05 06:09] VITALS: BP 140/82
== END 2021-01-05 06:36 | disposition home or self-care (01) ==
LOC: EDUNIT# → ED 21:15
DX: R07.9 Chest pain, unspecified (principal); J43.9 Emphysema, unspecified; Z99.81 Dependence on supplemental oxygen; I10 Essential (primary) hypertension; E11.42 Type 2 diabetes mellitus with diabetic polyneuropathy; Z79.84 Long term (current) use of oral hypoglycemic drugs; Z79.82 Long term (current) use of aspirin
CPT/HCPCS: 36415; 80053; 83690; 83880; 84484; 85025; 85379; 93005; 94640; 99284

== ENCOUNTER 2021-01-22 10:23 | Outpatient (CLI) | payer MEDICARE, MEDICAID | END 2021-01-22 10:24 | disposition critical access hospital (66) | LOC: EMS 10:23 | DX: R06.00 Dyspnea, unspecified (principal) | CPT/HCPCS: A0425; A0429 ==

== ENCOUNTER 2021-01-22 10:45 | Emergency (ER) | payer MEDICARE, MEDICAID ==
--- OUTSIDE RECORDS SUMMARY | 2021-01-22 11:19 | EXTERNAL MEDICAL SUMMARY RPT | Continuity of Care Document ---
:1955 Demographics Phone Unavailable Preferred Language Unknown Marital Status Unknown Church Affiliation Unknown Race Unknown Ethnic Group Unknown Author Organization [place] Address [address] [phone] Phone Allergies Encounters Medications Problems date description facility [id number] Malignant neoplasm of upper lobe, right [facility] bronchus or lung [id number] Encounter for other preprocedural [facility] examination Results
[2021-01-22] MEDS ORDERED: ALBUTEROL NEB 2.5 MG/3 ML INH STA (11:38)
[2021-01-22] MEDS ORDERED: IPRATROPIUM 0.2 MG/ML NEB INH STA (11:38)
--- NOTE | 2021-01-22 11:42 | ED Physician Documentation ---
History of Present Illness - Stated complaint Stated Complaint: SOA - Chief complaint Chief Complaint: Resp - Additonal information Additional information: 65-year-old female presents to the emergency department for evaluation of 3 days of shortness of air. She denies any fevers but does have a dry cough. She has a longstanding history of COPD and is on baseline home O2 typically 1 to 2 L/min. She states over the last few days she has had worsening dyspnea on exertion but no orthopnea. She has not had any missed doses of her diuretic or her steroids or inhalers. She does feel that her legs are little more swollen than normal. She called 911 and received Atrovent nebulizer in route and feels that it has helped somewhat. Most recent visit for similar was about 3 weeks ago. Patient denies that she is having exertional chest pain, no abdominal pain nausea vomiting sweats or weight loss. Review of Systems Constitutional: denies: Fever, Chills Eyes: reports: Reviewed and negative Ears: reports: Reviewed and negative Nose: reports: Reviewed and negative Throat: reports: Reviewed and negative Cardiac: denies: Chest pain / pressure, Palpitations, Pedal edema Respiratory: reports: Dyspnea, Cough. 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 : Incontinence HEENT: Chronic vision loss, Chronic sinusitis Psych: Depression, Anxiety, Bipolar disorder Musculoskeletal: Osteoarthritis Derm: None - Past Surgical History Past Surgical History: Yes General: 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 /EDUCATION ADMINISTRATIVE ASSISTANT: 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 Cardiovascular: Valve replacement HEENT: Tonsil/Adenoidectomy - Present Medications Home Medications: Ambulatory Orders Medication Instructions Recorded Confirmed Aspirin [Aspirin EC] 81 mg PO DAILY 02/25/19 09/20/20 Gabapentin 300 mg PO TID PRN 02/25/19 09/20/20 Ipratropium/Albuterol [Duoneb] 3 ml INH BID 02/25/19 09/20/20 Montelukast [Singulair] 10 mg PO QPM 02/25/19 09/20/20 metFORMIN [Glucophage] 500 mg PO BID 02/25/19 09/20/20 Simvastatin 10 mg PO DAILY #30 tablet 02/26/19 09/20/20 Fluticasone/Umeclidin/Vilanter 2 puffs IH Q4HR PRN 08/13/20 09/20/20 [Trelegy Ellipta 200-62.5-25] Albuterol Sulf [Ventolin Hfa 1 - 2 puffs INH Q4HR PRN #1 inhaler 08/22/20 09/20/20 Inhaler] Metoprolol Tartrate [Lopressor] 12.5 mg PO BID 08/22/20 09/20/20 Meloxicam [Mobic] 7.5 mg PO BID PRN #20 tablet 09/14/20 09/20/20 Bumetanide [Bumex] 3 tab PO DAILY 09/16/20 09/20/20 Azithromycin [Zithromax] 250 mg PO DAILY 5 Days #6 tab 09/20/20 hydrOXYzine HCL [Hydroxyzine HCl] 25 mg PO QID 09/20/20 09/20/20 predniSONE [Deltasone] 10 mg PO [id number] #42 tab 09/20/20 Cefuroxime Axetil [Cefuroxime] 500 mg PO BID #10 tablet 11/25/20 dexAMETHasone [Decadron] 4 mg PO DAILY #5 tablet 11/25/20 - Allergies Allergies/Adverse Reactions: Allergies Allergy/AdvReac Type Severity Reaction Status Date / Time levofloxacin [From Levaquin] Allergy Hives Verified 01/22/21 11:03 oxycodone Allergy Itching Verified 01/22/21 11:03 tramadol AdvReac Itching Verified 01/22/21 11:03 - Social History Does the pt smoke?: No Smoking Status: Never smoker Does the pt drink ETOH?: Yes Does the pt have substance abuse?: No - Immunizations Immunizations are current?: Yes - POLST Patient has POLST: No POLST Status: Full Code PD ED PE EXPANDED - General General: Alert, No acute distress, Other (obese) - Cardiac Cardiac: Regular Rate, Radial strong equal, Pedal strong equal, Cap refill < 2 sec - Respiratory Respiratory: Clear to ausultation shivani. No: Distress, Labored, Accessory mm use - Abdomen Abdomen: Normal Bowel sounds. No: Tender to palpation - Derm Derm: Normal color, Warm and dry. No: Rash - Extremities Extremities: Normal. No: Deformity, Tenderness Results - Vitals Vitals: Vital Signs - 24 hr 01/22/21 01/22/21 01/22/21 10:46 11:51 11:58 Temperature 37.2 C Heart Rate 85 88 76 Respiratory 20 16 18 Rate Blood Pressure 149/92 H O2 Saturation 99 Oxygen O2 Source Nasal cannula Oxygen Flow Rate 2 - EKG (time done) 1116 Rate: Rate (enter#) (73) Rhythm: NSR [place]: LAD (early) Intervals: Normal [place]. No: Prolonged QT QRS: Normal Ischemia: Non specific changes (laterally) Compare to prior EKG: Unchanged from prior EKG Computer interpretation: Agree with computer - Labs Labs: Laboratory Tests 01/22/21 01/22/21 01/22/21 11:20 11:20 11:20 WBC 15.8 H RBC 4.38 Hgb 13.1 Hct 40.6 MCV 92.7 MCH 29.9 MCHC 32.3 RDW 13.2 Plt Count 315 MPV 9.7 Neut # (Auto) 13.3 H Lymph # (Auto) 1.9 [place] # (Auto) 0.4 Eos # (Auto) 0.1 Baso # (Auto) 0.0 Absolute Nucleated RBC 0.00 Nucleated RBC % 0.0 Sodium 142 Potassium 3.7 Chloride 99 L Carbon Dioxide 31 Anion Gap 12.0 BUN 24 H Creatinine 1.0 Estimated GFR (MDRD) 55 L Glucose 152 H Calcium 10.2 Total Bilirubin 0.6 AST 20 ALT 34 Alkaline Phosphatase 74 Troponin I High Sens 8.5 B-Natriuretic Peptide Total Protein 6.9 Albumin 4.1 Globulin 2.8 Albumin/Globulin Ratio 1.5 Lipase 28 01/22/21 11:20 WBC RBC Hgb Hct MCV MCH MCHC RDW Plt Count MPV Neut # (Auto) Lymph # (Auto) [place] # (Auto) Eos # (Auto) Baso # (Auto) Absolute Nucleated RBC Nucleated RBC % Sodium Potassium Chloride Carbon Dioxide Anion Gap BUN Creatinine Estimated GFR (MDRD) Glucose Calcium Total Bilirubin AST ALT Alkaline Phosphatase Troponin I High Sens B-Natriuretic Peptide 68 Total Protein Albumin Globulin Albumin/Globulin Ratio Lipase - Rads (name of study) CXR Radiology: Final report received (Heart size is not enlarged. Chronic mild asymmetric elevation of the right hemidiaphragm. The interstitial prominence pattern noted above is considered more likely smoking-related than cardiogenic in origin. No definite change from 12/30/2020) PD MEDICAL DECISION MAKING - ED course Complexity details: reviewed results, re-evaluated patient, d/w patient ED course: 65-year [id number] female with a history of oxygen dependent COPD Presents the emergency department with 2 to 3 days of worsening shortness of air on exertion. No orthopnea. She has not had a requirement for increased oxygen demand at home but did not feel like her home nebulizers were helping. There was no chest pain. She received a DuoNeb in route with some relief of her symptoms. Here in the emergency department she was given a second DuoNeb followed by albuterol with marked improvement with her shortness of air. She remains on 2 L nasal cannula with saturations in 99%. Screening EKG is nonischemic. High-sensitivity troponin is negative. Her BNP is not elevated and is in fact less than last time. Chest x-ray showed no acute changes from recent. Patient at this point felt better and is stable for discharge home. We discussed that the white blood cell count elevation seen on CBC is likely related to chronic long-term steroid use. However given marked improvement in symptoms with nebulizers I will defer steroid burst or antibiotics at this time Departure - Departure Disposition: 01 Home, Self Care Clinical Impression: Short of breath on exertion COPD (chronic obstructive pulmonary disease) Qualifiers: COPD type: unspecified COPD Qualified Code(s): J44.9 - Chronic obstructive pulmonary disease, unspecified Condition: Stable Record reviewed to determine appropriate education?: Yes Follow-Up: Trip Odonnell MD [Primary Care Provider] - Comments: Shivani you are seen in the ER today for shortness of air. We were able to get symptom improvement by giving you DuoNeb and albuterol in the emergency department. I recommend that in the morning when you wake up you take the albuterol then the DuoNeb nebulizers. Your chest x-ray does not show any significant changes from your most recent one on 30 December. You do not have pneumonia. Your screening labs and electrolytes were essentially unchanged. You do have a very mild white blood cell count elevation but this is likely secondary to long-term steroid use. Please return to the emergency department if you are having worsening symptoms, fevers chest pain or feel that your shortness of air is not improving with nebulizer use at home or your oxygen requirements go up markedly
[2021-01-22] MEDS ORDERED: IPRATROPIUM/ALBUTEROL 3 ML NEB INH STA (11:45)
[2021-01-22 11:53] LABS: BASOPHILS % (AUTO) 0.2 %; EOSINOPHILS # (AUTO) 0.1 10^3/uL (0.0-0.7); EOSINOPHILS % (AUTO) 0.6 %; HCT - HEMATOCRIT 40.6 % (37.0-47.0); HGB - HEMOGLOBIN 13.1 g/dL (12.0-16.0); LYMPHOCYTES # (AUTO) 1.9 10^3/uL (1.5-3.5); LYMPHOCYTES % (AUTO) 11.9 %; MEAN CORPUSCULAR HEMOGLOBIN 29.9 pg (27.0-31.0); MEAN CORPUSCULAR HGB CONC 32.3 g/dL (32.0-36.0); MEAN CORPUSCULAR VOLUME 92.7 fL (81.0-99.0); MEAN PLATELET VOLUME 9.7 fL (7.9-10.8); MONOCYTES # (AUTO) 0.4 10^3/uL (0.0-1.0); MONOCYTES % (AUTO) 2.8 %; NEUTROPHILS # (AUTO) 13.3 10^3/uL (1.5-6.6); NEUTROPHILS % (AUTO) 84.1 %; PLT - PLATELET COUNT 315 10^3/uL (130-450); RED BLOOD COUNT 4.38 10^6/uL (4.20-5.40); RED CELL DISTRIBUTION WIDTH 13.2 % (12.0-15.0); WHITE BLOOD COUNT 15.8 x10^3/uL (4.8-10.8)
--- NOTE | 2021-01-22 11:58 | XRAY Report ---
PROCEDURE: Chest 1 View X-Ray INDICATIONS: Chest Pain TECHNIQUE: One view of the chest was acquired. COMPARISON: 12/30/2020 2 view chest FINDINGS: Surgical changes and devices: None. Lungs and pleura: No pleural effusions or pneumothorax. Lungs are abnormal with chronic elevation o f the right hemidiaphragm and linear atelectasis crossing the right lower lung. There is a mild pulmo nary edema or interstitial prominence pattern. , Previously present. Mediastinum: Mediastinal contours appear normal. Heart size is normal. Bones and chest wall: No suspicious bony lesions. Overlying soft tissues appear unremarkable. IMPRESSION: Heart size is not enlarged. Chronic mild asymmetric elevation of the right hemidiaphragm. The interst itial prominence pattern noted above is considered more likely smoking related than cardiogenic in or igin. No definite change from 12/30/2020. Reviewed by: Chucho Quiñones MD on 01/22/2021 11:57 AM PDT Approved by: Chucho Quiñones MD on 01/22/2021 11:57 AM PDT Station ID: [id number]
[2021-01-22 12:03] LABS: ALBUMIN 4.1 g/dL (3.2-5.5); ALBUMIN/GLOBULIN RATIO 1.5 (1.0-2.2); BILIRUBIN,TOTAL 0.6 mg/dL (0.2-1.0); CALCIUM 10.2 mg/dL (8.5-10.3); POTASSIUM 3.7 mmol/L (3.5-5.0); TOTAL PROTEIN 6.9 g/dL (6.7-8.2)
[2021-01-22 12:51] VITALS: BP 135/70
== END 2021-01-22 13:22 | disposition home or self-care (01) ==
LOC: EDUNIT# → ED 10:45
DX: J43.9 Emphysema, unspecified (principal); Z99.81 Dependence on supplemental oxygen; Z79.51 Long term (current) use of inhaled steroids; I10 Essential (primary) hypertension; E11.42 Type 2 diabetes mellitus with diabetic polyneuropathy; Z79.84 Long term (current) use of oral hypoglycemic drugs; Z79.82 Long term (current) use of aspirin
CPT/HCPCS: 36415; 80053; 83690; 83880; 84484; 85025; 93005; 94640; 99284

== ENCOUNTER 2021-01-22 17:04 | Outpatient (CLI) | payer MEDICARE, MEDICAID | END 2021-01-22 17:05 | disposition EMS.NT | LOC: EMS 17:04 | DX: R06.02 Shortness of breath (principal) ==

== ENCOUNTER 2021-01-23 00:51 | Outpatient (CLI) | payer MEDICARE, MEDICAID | END 2021-01-23 00:52 | disposition critical access hospital (66) | LOC: EMS 00:51 | DX: R06.02 Shortness of breath (principal) | CPT/HCPCS: A0425; A0429 ==

== ENCOUNTER 2021-01-23 01:11 | Emergency (ER) | payer MEDICARE, MEDICAID ==
[2021-01-23] MEDS ORDERED: SODIUM CHLORIDE 0.9% 1,000 ML IV STA (01:24)
[2021-01-23] MEDS ORDERED: DEXAMETHASONE 10 MG/ML VIAL IVP STA (01:24)
--- OUTSIDE RECORDS SUMMARY | 2021-01-23 01:24 | EXTERNAL MEDICAL SUMMARY RPT | Continuity of Care Document ---
:1955 Demographics Phone Unavailable Preferred Language Unknown Marital Status Unknown Caodaism Affiliation Unknown Race Unknown Ethnic Group Unknown Author Organization [place] Address [address] [phone] Phone Allergies Encounters Medications Problems date description facility [id number] Malignant neoplasm of upper lobe, right [facility] bronchus or lung [id number] Encounter for other preprocedural [facility] examination Results
--- NOTE | 2021-01-23 01:30 | ED Physician Documentation ---
PD HPI DYSPNEA - Stated complaint Stated Complaint: SOA,COPD, RECENT PNEUMONECTOMY - History obtained from History obtained from: Patient, EMS - History of Present Illness Timing - onset: How many weeks ago (1) Timing - onset during: Rest Timing - duration: Weeks (1) Timing - details: Gradual onset, Still present Inciting event(s): Other (has COPD and has had pneumonectomy 2 months ago) Worsened by: Exertion, Laying flat, Coughing Associated symptoms: Cough, Wheezing, Bilateral edema. No: Fever, Hemoptysis Similar symptoms before: Diagnosis (COPD) Recently seen: Emergency Dept (today) - Additional information Additional information: 65-year-old female with a history of COPD has had a pneumonectomy done in November of this year and following that she had an admission for exacerbation of COPD. She is having an exacerbation of COPD now and she has been put on 10 mg of prednisone daily and this does not appear adequate. She was in the emergency department earlier today had a treatment and seemed to respond. She however has had as many as 10 treatments today and she is now nauseous with the last treatment she got. She arrives to the emergency department with air hunger and diminished breath sounds. She is on oxygen at home when she is up to do anything. Review of Systems Constitutional: denies: Fever Eyes: denies: Decreased vision Ears: denies: Ear pain Nose: denies: Rhinorrhea / runny nose, Congestion Throat: denies: Sore throat Cardiac: reports: Pedal edema. 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 : Incontinence HEENT: Chronic vision loss, Chronic sinusitis Psych: Depression, Anxiety, Bipolar disorder Musculoskeletal: Osteoarthritis Derm: None - Past Surgical History Past Surgical History: Yes General: 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 /SENIOR INVESTMENT ANALYST: 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 Cardiovascular: Valve replacement HEENT: Tonsil/Adenoidectomy - Present Medications Home Medications: Ambulatory Orders Medication Instructions Recorded Confirmed Aspirin [Aspirin EC] 81 mg PO DAILY 02/25/19 09/20/20 Gabapentin 300 mg PO TID 02/25/19 09/20/20 Ipratropium/Albuterol [Duoneb] 3 ml INH BID 02/25/19 09/20/20 Montelukast [Singulair] 10 mg PO QPM 02/25/19 09/20/20 metFORMIN [Glucophage] 500 mg PO BID 02/25/19 09/20/20 Simvastatin 10 mg PO DAILY #30 tablet 02/26/19 09/20/20 Fluticasone/Umeclidin/Vilanter 2 puffs IH Q4HR PRN 08/13/20 09/20/20 [Trelegy Ellipta 200-62.5-25] Metoprolol Tartrate [Lopressor] 12.5 mg PO BID 08/22/20 09/20/20 Bumetanide [Bumex] 3 tab PO DAILY 09/16/20 09/20/20 hydrOXYzine HCL [Hydroxyzine HCl] 25 mg PO QID 09/20/20 09/20/20 Benralizumab [Fasenra Pen] SQ 01/23/21 Bumetanide [Bumex] 5 mg PO DAILY 01/23/21 01/23/21 cefUROXime axetiL [Ceftin] 500 mg PO Q12H #14 tablet 01/23/21 predniSONE [Deltasone] 10 mg PO DAILY 01/23/21 01/23/21 predniSONE [Deltasone] 10 mg PO ONCE #26 tablet 01/23/21 - Allergies Allergies/Adverse Reactions: Allergies Allergy/AdvReac Type Severity Reaction Status Date / Time levofloxacin [From Levaquin] Allergy Hives Verified 01/22/21 11:03 oxycodone Allergy Itching Verified 01/22/21 11:03 tramadol AdvReac Itching Verified 01/22/21 11:03 - Social History Does the pt smoke?: No Smoking Status: Never smoker Does the pt drink ETOH?: Yes Does the pt have substance abuse?: No - Immunizations Immunizations are current?: Yes - POLST Patient has POLST: No POLST Status: Full Code PD ED PE NORMAL - Vitals Vital signs reviewed: Yes - General General: Alert and oriented X 3, Well developed/nourished, Other (dyspnea at rest without audible wheeze) - HEENT HEENT: Atraumatic, PERRL, EOMI - Neck Neck: Supple, no meningeal sign, No bony TTP - Cardiac Cardiac: RRR, No murmur - Respiratory Respiratory: Other (dyspneic with right base crackles and reduced air movment) - Abdomen Abdomen: Soft, Non tender - Back Back: No CVA TTP, No spinal TTP - Derm Derm: Normal color, Warm and dry, No rash - Extremities Extremities: No deformity, Other (trace edema bilat) - Neuro Neuro: Alert and oriented X 3, 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 2-12 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, No motor deficit, No sensory deficit, Normal speech Eye Opening: Spontaneous Motor: Obeys Commands Verbal: Oriented GCS Score: 15 - Psych Psych: Normal affect, Other (mildly anxious mood) Results - Vitals Vitals: Vital Signs - 24 hr 01/23/21 01/23/21 01/23/21 01:16 02:10 02:45 Temperature 36.6 C Heart Rate 81 71 83 Respiratory 13 18 24 Rate Blood Pressure 136/72 H 110/76 133/68 H O2 Saturation 98 98 98 01/23/21 01/23/21 03:01 04:15 Temperature Heart Rate 78 87 Respiratory 25 H 18 Rate Blood Pressure 126/68 O2 Saturation 98 Oxygen O2 Source Room air - EKG (time done) 0123 Rate: Rate (enter#) (73) Rhythm: NSR Ischemia: Normal ST segments Compare to prior EKG: Unchanged from prior EKG (SPT earlier today no changes) Computer interpretation: Disagree with computer (The rhythm is sinus not afib. ) - Labs Labs: Laboratory Tests 01/23/21 01/23/21 01/23/21 01:54 01:54 01:54 WBC 13.2 H RBC 4.15 L Hgb 12.3 Hct 38.6 MCV 93.0 MCH 29.6 MCHC 31.9 L RDW 13.2 Plt Count 309 MPV 9.1 Neut # (Auto) 8.2 H Lymph # (Auto) 3.9 H [place] # (Auto) 0.9 Eos # (Auto) 0.2 Baso # (Auto) 0.0 Absolute Nucleated RBC 0.00 Nucleated RBC % 0.0 Sodium 144 Potassium 3.4 L Chloride 102 Carbon Dioxide 31 Anion Gap 11.0 BUN 26 H Creatinine 1.0 Estimated GFR (MDRD) 55 L Glucose 105 H Calcium 9.7 Total Bilirubin 0.5 AST 22 ALT 36 Alkaline Phosphatase 72 Troponin I High Sens B-Natriuretic Peptide 55 Total Protein 6.5 L Albumin 3.9 Globulin 2.6 Albumin/Globulin Ratio 1.5 Lipase 30 01/23/21 01:54 WBC RBC Hgb Hct MCV MCH MCHC RDW Plt Count MPV Neut # (Auto) Lymph # (Auto) [place] # (Auto) Eos # (Auto) Baso # (Auto) Absolute Nucleated RBC Nucleated RBC % Sodium Potassium Chloride Carbon Dioxide Anion Gap BUN Creatinine Estimated GFR (MDRD) Glucose Calcium Total Bilirubin AST ALT Alkaline Phosphatase Troponin I High Sens 8.2 B-Natriuretic Peptide Total Protein Albumin Globulin Albumin/Globulin Ratio Lipase - Rads (name of study) chest Radiology: Prelim report reviewed (Impression: No acute findings.), EMP read indepedently, See rad report Procedures - IVC sono (time) 0125 Bedside IVC sono: IVC measures (cm) (1.08), Dehydration (est 1-2 liter deficit) PD MEDICAL DECISION MAKING - ED course Complexity details: reviewed old records, reviewed results, re-evaluated patient, considered differential, d/w patient ED course: 65-year-old female with a history of COPD comes in this evening with an exacerbation and she appears to be inadequately treated with steroid at this time. She is administered dexamethasone 10 mg orally here in the emergency department and she is also found to be dehydrated on interrogation the inferior vena cava and she is administered saline as well. She does not appear to be in failure. She has improvements with these maneuvers and does not require a t reatment until nearly 3 and half hours into her visit. She is administered some Ativan as well for control of anxiety. Departure - Departure Disposition: 01 Home, Self Care Clinical Impression: Acute exacerbation of chronic obstructive pulmonary disease (COPD) Condition: Stable Instructions: ED COPD Flare Follow-Up: Trip Odonnell MD [Primary Care Provider] - Prescriptions: cefUROXime axetiL [Ceftin] 500 mg PO Q12H #14 tablet predniSONE [Deltasone] 10 mg PO ONCE #26 tablet
[2021-01-23 01:58] LABS: BASOPHILS % (AUTO) 0.3 %; EOSINOPHILS # (AUTO) 0.2 10^3/uL (0.0-0.7); EOSINOPHILS % (AUTO) 1.4 %; HCT - HEMATOCRIT 38.6 % (37.0-47.0); HGB - HEMOGLOBIN 12.3 g/dL (12.0-16.0); LYMPHOCYTES # (AUTO) 3.9 10^3/uL (1.5-3.5); LYMPHOCYTES % (AUTO) 29.3 %; MEAN CORPUSCULAR HEMOGLOBIN 29.6 pg (27.0-31.0); MEAN CORPUSCULAR HGB CONC 31.9 g/dL (32.0-36.0); MEAN PLATELET VOLUME 9.1 fL (7.9-10.8); MONOCYTES # (AUTO) 0.9 10^3/uL (0.0-1.0); MONOCYTES % (AUTO) 6.8 %; NEUTROPHILS # (AUTO) 8.2 10^3/uL (1.5-6.6); NEUTROPHILS % (AUTO) 61.7 %; PLT - PLATELET COUNT 309 10^3/uL (130-450); RED BLOOD COUNT 4.15 10^6/uL (4.20-5.40); RED CELL DISTRIBUTION WIDTH 13.2 % (12.0-15.0); WHITE BLOOD COUNT 13.2 x10^3/uL (4.8-10.8)
[2021-01-23 02:24] LABS: ALBUMIN 3.9 g/dL (3.2-5.5); ALBUMIN/GLOBULIN RATIO 1.5 (1.0-2.2); BILIRUBIN,TOTAL 0.5 mg/dL (0.2-1.0); CALCIUM 9.7 mg/dL (8.5-10.3); POTASSIUM 3.4 mmol/L (3.5-5.0); TOTAL PROTEIN 6.5 g/dL (6.7-8.2)
[2021-01-23] MEDS ORDERED: ALBUTEROL NEB 2.5 MG/3 ML INH STA (04:01)
[2021-01-23] MEDS ORDERED: LORazepam 2 MG/ML VIAL IVP STA (04:14)
[2021-01-23 06:59] VITALS: BP 131/61
--- NOTE | 2021-01-23 08:11 | XRAY Report ---
PROCEDURE: Chest 1 View X-Ray INDICATIONS: Chest pain TECHNIQUE: One view of the chest was acquired. COMPARISON: 01/22/2021, 12/30/2020 FINDINGS: Surgical changes and devices: Median sternotomy changes. Lungs and pleura: No pleural effusions or pneumothorax. Lungs are clear. Asymmetric elevation of t he right hemidiaphragm similar to the prior studies. Streaky linear atelectasis versus scarring in th e right midlung is also unchanged. Mediastinum: Mediastinal contours appear normal. Heart size is normal. Bones and chest wall: No suspicious bony lesions. Overlying soft tissues appear unremarkable. IMPRESSION: No acute finding. Reviewed by: Prasanna Lynn MD on 01/23/2021 8:09 AM PDT Approved by: Prasanna Lynn MD on 01/23/2021 8:09 AM PDT Station ID: [id number]
== END 2021-01-23 06:59 | disposition home or self-care (01) ==
LOC: EDUNIT# → ED 01:11
DX: J44.1 Chronic obstructive pulmonary disease with (acute) exacerbation (principal); E86.0 Dehydration; F41.9 Anxiety disorder, unspecified; I11.0 Hypertensive heart disease with heart failure; I50.9 Heart failure, unspecified; E11.42 Type 2 diabetes mellitus with diabetic polyneuropathy; Z79.84 Long term (current) use of oral hypoglycemic drugs
CPT/HCPCS: 36415; 71045; 80053; 83690; 83880; 84484; 85025; 93005; 94640; 96374; 96375; 99284; J2060